=== PATIENT | female | born 1960 | race Caucasian/White ===

== ENCOUNTER → 2018-06-06 10:32 | Outpatient (REF) | payer OTHER, SELFPAY ==
[2018-06-06 11:09] LABS: Prothrombin Time 90.7 SECONDS (10.1-12.7)
[2018-06-06 11:14] LABS: INR 7.5 (0.9-1.3)
== END ==
LOC: LAB 10:32
PROVIDERS: Family Provider Family Medicine; PCP Family Medicine; Visit Provider Family Medicine
DX: I48.0 Paroxysmal atrial fibrillation (principal); Z00.00 Encounter for general adult medical examination without abnormal findings
CPT/HCPCS: 85610

== ENCOUNTER → 2020-01-17 08:33 | Outpatient (CLI) | payer OTHER, SELFPAY ==
--- NOTE | 2020-01-17 | DI.MG.S_ITS ---
BILATERAL DIGITAL SCREENING MAMMOGRAM 3D/2D WITH CAD: 01/17/2020 CLINICAL: Routine screening. Comparison is made to exams dated: 01/09/2017 mammogram, 01/05/2015 mammogram, and 10/07/2013 mammogram - [facility]. There are scattered fibroglandular elements in both breasts. Current study was also evaluated with a Computer Aided Detection (CAD) system. There are benign lymph nodes in both breasts. There also are benign calcifications in both breasts. No significant masses, calcifications, or other findings are seen in either breast. There has been no significant interval change. IMPRESSION: BENIGN There is no mammographic evidence of malignancy. A 1 year screening mammogram is recommended. This exam was interpreted at Station ID: [id number]. NOTE: For mammograms, a report in lay terms will be sent to the patient. Approximately 15% of breast malignancies will not be visualized mammographically. In the management of a palpable breast mass, a negative mammogram must not discourage biopsy of a clinically suspicious lesion. Electronically Signed By: Maicol oates/britney:01/17/2020 09:25:43 letter sent: Normal Exam ACR BI-RADS Category 2: Benign Finding(s) 3342F
== END ==
PROVIDERS: Family Provider Family Medicine; PCP Family Medicine; Referring Provider Family Medicine; Visit Provider Family Medicine
DX: Z12.31 Encounter for screening mammogram for malignant neoplasm of breast (principal)
CPT/HCPCS: 77063; 77067

== ENCOUNTER 2020-03-22 13:35 | Emergency (ER) | payer OTHER, SELFPAY ==
[2020-03-22 13:38] VITALS: BP 194/97; PULSE 93; RESP 16; TEMP 36.6; O2SAT 99; BMI 27.3
--- NOTE | 2020-03-22 13:43 | DI.RAD.S_ITS ---
PROCEDURE: XR CHEST 1V INDICATIONS: chest pain TECHNIQUE: One view of the chest was acquired. COMPARISON: [facility], CHEST 1 VIEW, 05/13/2008, 14:45. [facility], CHEST 2 VIEW, 07/20/2009, 13:18. FINDINGS: Surgical changes and devices: None. Lungs and pleura: Lungs are clear. No pleural effusions or pneumothorax. Mediastinum: Mediastinal contours appear normal. Heart size is normal. Bones and chest wall: No suspicious bony lesions. Age-appropriate bony degenerative changes are seen. Overlying soft tissues appear unremarkable. IMPRESSION: Portable chest within normal limits. Dictated by: Pa Ca M.D. on 03/22/2020 at 13:19 Approved by: Pa Ca M.D. on 03/22/2020 at 13:20
--- NOTE | 2020-03-22 13:58 | ED.CHESTPAIN ---
HPI - Chest Pain General Chief Complaint: Chest Pain Stated Complaint: severe stomach pain traveling to chest for few wks Time Seen by Provider: 03/22/20 13:50 Source: patient Mode of arrival: Ambulatory Limitations: no limitations History of Present Illness HPI narrative: The patient is a 59-year-old female who presents with left upper quadrant pain on going for the last 3 weeks. She says occasionally radiates up into her chest. It is significantly worse whenever she tries to eat she is always nauseous she has been taking omeprazole without any relief. She is unsure she has lost any weight. She denies any fever chills cough or shortness of breath. She denies any chest pain now but is having significant epigastric and left upper quadrant pain. She says the pain got significantly worse last night Related Data Previous Rx's Medication Instructions Recorded omeprazole 40 mg PO BID #60 cap 03/22/20 sucralfate [Carafate] 1 g PO QID #60 tab 03/22/20 Allergies Allergy/AdvReac Type Severity Reaction Status Date / Time Sulfa (Sulfonamide Allergy Unknown Verified 09/11/17 06:59 Antibiotics) Review of Systems Review of Systems ROS Unobtainable: All systems reviewed & are unremarkable except as noted in HPI and below Constitutional Constitutional: Denies chills, Denies fever(s), Denies lethargy and Denies weakness Eyes Eyes: Denies change in vision, Denies eye discharge, Denies irritation and Denies loss of vision Cardiovascular Cardiovascular: Reports as per HPI, Denies dyspnea and Denies dyspnea on exertion Respiratory Respiratory: Denies cough, Denies dyspnea, Denies dyspnea on exertion and Denies wheezing Gastrointestinal Gastrointestinal: Reports as per HPI Musculoskeletal Musculoskeletal: Denies back pain and Denies myalgias Integumentary/Breasts Skin/Breast: Denies pruritus, Denies erythema, Denies rash and Denies wounds Neurologic Neurologic: Denies loss of vision and Denies weakness Allergic/Immunologic Allergic/Immunologic: Denies wheezing Patient History Social History Smoking Status: Current every day smoker Smoking Status: Current every day smoker alcohol intake frequency: a few times a week Substance Use Type: marijuana Exam Initial Vital Signs Initial Vital Signs: Vital Signs Temperature 97.8 F 03/22/20 13:38 Pulse Rate 93 H 03/22/20 13:38 Respiratory Rate 16 03/22/20 13:38 Blood Pressure 194/97 H 03/22/20 13:38 Pulse Oximetry 99 03/22/20 13:38 GENERAL: Alert 59-year-old female in mild distress and in no acute distress. HEENT: Head atraumatic,EOMI, pupils reactive, face symmetric, mucous membranes CARDIOVASCULAR: Regular rate and rhythm without murmurs, rubs or gallops. RESPIRATORY: Breath sounds equal bilaterally, no wheezes rales or rhonchi. ABDOMEN: Soft, significant epigastric and left upper quadrant pain to palpation no right upper quadrant pain negative Brumfield sign EXTREMITIES: Normal range of motion, no clubbing or edema. Neurovascularly intact NEUROLOGICAL: Alert and oriented x4.Normal gait and speech. Cranial nerves II through XII grossly intact. SKIN: Warm, dry, no laceration, no petechiae, no rashes or lesions. Course Orders Ordered: ED Orders 03/22/20 13:43 XR chest 1V Stat EKG-12 Lead Stat 03/22/20 13:50 Complete Blood Count AUTO DIFF Stat Comprehensive Metabolic Panel Stat Lipase Stat Partial Thromboplastin Time Stat Prothrombin Time INR Stat Troponin & CK Cardiac Panel Stat 03/22/20 13:58 CT abdomen pelvis w con Stat 03/22/20 15:00 Urine Microscopic Stat Discontinued Medications Sodium Chloride (Normal Saline 0.9%) 1,000 mls @ 1,000 mls/hr IV BOLUS ONE Stop: 03/22/20 15:26 Last Infusion: 03/22/20 16:29 Dose: 0 mls/hr Documented by: Admin: 03/22/20 14:35 Dose: 1,000 mls/hr Documented by: CARLOS Morphine Sulfate (Morphine 4 Mg/Ml Inj) 4 mg IV NOW ONE Stop: 03/22/20 13:59 Last Admin: 03/22/20 14:04 Dose: 4 mg Documented by: CARLOS Ondansetron HCl (Ondansetron 4 Mg/2 Ml Inj) 4 mg IV NOW ONE Stop: 03/22/20 13:59 Last Admin: 03/22/20 14:03 Dose: 4 mg Documented by: CARLOS Pantoprazole Sodium (Pantoprazole 40 Mg Vial) 40 mg IV NOW ONE Stop: 03/22/20 13:59 Last Admin: 03/22/20 14:03 Dose: 40 mg Documented by: CARLOS Vital Signs Vital signs: Vital Signs - 8 hr 03/22/20 13:38 03/22/20 16:35 Temperature 97.8 F Pulse Rate 93 H 72 Respiratory Rate 16 16 Blood Pressure 194/97 H 135/72 Pulse Oximetry 99 99 MDM - Chest Pain Lab Data Attestation: I reviewed the patient's lab results. Result diagrams: 03/22/20 13:50 03/22/20 13:50 Labs: Lab Results 03/22/20 03/22/20 03/22/20 Range/Units 13:50 13:50 13:50 WBC 5.9 (4.5-11.0) X10^3/uL RBC 4.10 (4.0-5.2) X10^6/uL Hgb 13.5 (12.0-16.0) g/dL Hct 39.6 (36-46) % MCV 96.7 (80-100) fL MCH 32.9 (26-34) PG MCHC 34.0 (30-36) % RDW 13.2 (11.6-14.8) % Plt Count 201 (150-400) X10^3/uL Neut % (Auto) 63.9 (50-75) % Lymph % (Auto) 27.6 (25-40) % [place] % (Auto) 7.4 (3-14) % Eos % (Auto) 0.6 L (2-4) % Baso % (Auto) 0.5 (0-2) % Neut # (Auto) 3800 (9620-4946) /uL Lymph # (Auto) 1600 (6531-1541) /uL [place] # (Auto) 400 (0-900) /uL Eos # (Auto) 0 (0-450) /uL Baso # (Auto) 0 (0-100) /uL PT 13.3 H (10.1-12.7) SECONDS INR 1.2 (0.9-1.3) APTT 45 H (26.4-36.2) SECONDS Sodium 133 L (137-145) mmol/L Potassium 4.8 (3.4-5.1) mmol/L Chloride 104 (98-107) mmol/L Carbon Dioxide 19 L (22-32) mmol/L BUN 27 H (7-17) mg/dL Creatinine 0.82 (0.52-1.04) mg/dL Estimated GFR > 60.0 (>60) mL/min BUN/Creatinine Ratio 32.9 H (6-22) Glucose 359 H (70-100) mg/dL Calcium 9.9 (8.4-10.2) mg/dL Total Bilirubin 0.7 (0.2-1.3) mg/dL AST 68 H (14-36) IU/L ALT 71 H (<35) IU/L Alkaline Phosphatase 82 (38-126) U/L Total Creatine Kinase 584 H (30-135) U/L CK-MB (CK-2) 4.05 H (<2.37) ng/mL CK-MB (CK-2) Rel Index 0.7 L (1.5-5.0) % Troponin I < 0.012 (0.01-0.034) ng/mL Total Protein 7.6 (6.3-8.2) g/dL Albumin 4.5 (3.5-5.0) g/dL Globulin 3.1 (1.7-4.1) g/dL Albumin/Globulin Ratio 1.5 (1.0-2.8) Lipase 201 (23-300) U/L Urine RBC (0-5/HPF) Urine WBC (0-5/HPF) Ur Squamous Epith Cells (0-5/HPF) Urine Bacteria (None) Ur Culture Indicated? 03/22/20 Range/Units 15:00 WBC (4.5-11.0) X10^3/uL RBC (4.0-5.2) X10^6/uL Hgb (12.0-16.0) g/dL Hct (36-46) % MCV (80-100) fL MCH (26-34) PG MCHC (30-36) % RDW (11.6-14.8) % Plt Count (150-400) X10^3/uL Neut % (Auto) (50-75) % Lymph % (Auto) (25-40) % [place] % (Auto) (3-14) % Eos % (Auto) (2-4) % Baso % (Auto) (0-2) % Neut # (Auto) (7046-8602) /uL Lymph # (Auto) (1710-2487) /uL [place] # (Auto) (0-900) /uL Eos # (Auto) (0-450) /uL Baso # (Auto) (0-100) /uL PT (10.1-12.7) SECONDS INR (0.9-1.3) APTT (26.4-36.2) SECONDS Sodium (137-145) mmol/L Potassium (3.4-5.1) mmol/L Chloride (98-107) mmol/L Carbon Dioxide (22-32) mmol/L BUN (7-17) mg/dL Creatinine (0.52-1.04) mg/dL Estimated GFR (>60) mL/min BUN/Creatinine Ratio (6-22) Glucose (70-100) mg/dL Calcium (8.4-10.2) mg/dL Total Bilirubin (0.2-1.3) mg/dL AST (14-36) IU/L ALT (<35) IU/L Alkaline Phosphatase (38-126) U/L Total Creatine Kinase (30-135) U/L CK-MB (CK-2) (<2.37) ng/mL CK-MB (CK-2) Rel Index (1.5-5.0) % Troponin I (0.01-0.034) ng/mL Total Protein (6.3-8.2) g/dL Albumin (3.5-5.0) g/dL Globulin (1.7-4.1) g/dL Albumin/Globulin Ratio (1.0-2.8) Lipase (23-300) U/L Urine RBC None seen (0-5/HPF) Urine WBC None seen (0-5/HPF) Ur Squamous Epith Cells 0-1 /hpf (0-5/HPF) Urine Bacteria None seen (None) Ur Culture Indicated? Cult not indicated Urine Dip Bedside Urine Glucose 1000 mg/dl Bedside Urine Bilirubin - Negative Bedside Urine Ketone - Negative Urine Specific Parkman 1.010 Bedside Urine Occult Blood - Negative Bedside Urine pH 6.0 Bedside Urine Protein - Negative Bedside Urine Urobilinogen - Negative Bedside Urine Nitrite - Negative Bedside Urine Leukocytes - Negative Esterase Imaging Data CT scan - abdomen/pelvis: Radiologist's Impression: PROCEDURE: CT ABDOMEN PELVIS W CON INDICATIONS: ab pain TECHNIQUE: After the administration of intravenous contrast, 5 mm thick sections acquired from the diaphragm to the symphysis. 5 mm coronal and sagittal reformats were acquired. For radiation dose reduction, the following was used: automated exposure control, adjustment of mA and/or kV according to patient size. COMPARISON: None. FINDINGS: Image quality: Excellent. ABDOMEN: Lung bases: Lung bases are clear. Heart size is normal. Solid organs: Liver is normal in size. Subtle hypodensity in segment 8 measuring approximately 1.4 x 1 cm, (2/19). There is adjacent perfusion abnormality. Hepatic steatosis. Gallbladder is unremarkable. Biliary system is non dilated. Pancreas enhances normally. Spleen is normal in size and enhancement. No adrenal nodules. Kidneys demonstrate normal size and enhancement, without hydronephrosis. Peritoneum and bowel: No small bowel obstruction. Diverticulosis without diverticulitis. Normal appendix. No free fluid or air. Nodes and vessels: No retroperitoneal or mesenteric adenopathy by size criteria. Aorta and inferior vena cava are normal in size. Extensive calcified atherosclerotic plaque. Miscellaneous: Small fat containing periumbilical hernia. PELVIS: Genitourinary: Bladder wall thickness is normal. Uterus is absent. Miscellaneous: No inguinal hernias or adenopathy. Bones: No suspicious bony lesions. Marked DDD at L3-L4. No vertebral body compression fractures. IMPRESSION: 1. No acute inflammatory process is identified. No free fluid. 2. Diverticulosis without diverticulitis. 3. Ill-defined hypodensity in the right lobe of the liver. This could be due to underlying lesion or perfusion abnormality. Hepatic steatosis. -This can be further evaluated with abdominal ultrasound or multiphase liver CT or MRI. Dictated by: Jonny Pierre M.D. on 03/22/2020 at 14:46 Chest x-ray: Radiologist's Impression: PROCEDURE: XR CHEST 1V INDICATIONS: chest pain TECHNIQUE: One view of the chest was acquired. COMPARISON: [facility], CHEST 1 VIEW, 05/13/2008, 14:45. [facility], , CHEST 2 VIEW, 07/20/2009, 13:18. FINDINGS: Surgical changes and devices: None. Lungs and pleura: Lungs are clear. No pleural effusions or pneumothorax. Mediastinum: Mediastinal contours appear normal. Heart size is normal. Bones and chest wall: No suspicious bony lesions. Age-appropriate bony degenerative changes are seen. Overlying soft tissues appear unremarkable. IMPRESSION: Portable chest within normal limits. Dictated by: Pa Ca M.D. on 03/22/2020 at 13:19 ECG Data Attestation: I personally reviewed and interpreted this ECG as follows: Prior ECG tracings: not available for review Interpretation: EKG 1. Normal sinus rhythm rate 91 p.r. interval 148 QRS [address] changes or T-wave inversions EKG 2. Sinus rhythm rate 74 no changes from prior MDM Narrative Medical decision making narrative: Patient's pain has been ongoing for the last 3 weeks which is worse with food more consistent with a gastric ulcer. EKGs and troponin are negative. At this time will add Carafate and omeprazole and I recommended outpatient EGD. Discharge Plan Departure Patient Disposition: Home Clinical Impression: Gastric ulcer Qualifiers: Gastric ulcer chronicity: acute Gastric ulcer complication status: without hemorrhage or perforation Qualified Code(s): K25.3 - Acute gastric ulcer without hemorrhage or perforation Instructions: DI for Gastric Ulcer Activity Restrictions/Additional Instructions: *You have been diagnosed with gastric ulcer *What to do: You likely have a gastric ulcer. Please avoid all NSAIDs including Motrin, ibuprofen, naproxen, Aleve, Advil. etc I do recommend you have an EGD, this needs to be set up by her primary care provider *Continue to take medications as directed Carafate 1 g 4 times daily Omeprazole 40 mg twice a day 30 minutes before eating Tylenol 650 mg every 4-6 hours if needed for [id number] pain *Follow up with your primary care provider in 2-3 days *Return to ER if you should have increasing pain, dark black stools, dizziness, lightheadedness, vomiting coffee-ground stuff or any new, worsening or concerning symptoms Prescriptions: New sucralfate [Carafate] 1 gram tablet 1 g PO QID Qty: 60 RF: 0 omeprazole 40 mg capsule,delayed release(DR/EC) 40 mg PO BID Qty: 60 RF: 0 Referrals: Kilo Ag MD [Primary Care Provider] -
[2020-03-22 14:02] LABS: Add Manual Diff / Slide Review NO; Basophils Absolute Auto 0 /uL (0-100); Basophils Percent Auto 0.5 % (0-2); Eosinophils Absolute Auto 0 /uL (0-450); Eosinophils Percent Auto 0.6 % (2-4); Hematocrit 39.6 % (36-46); Hemoglobin 13.5 g/dL (12.0-16.0); Lymphocytes Absolute Auto 1600 /uL (1100-4500); Lymphocytes Percent Auto 27.6 % (25-40); Mean Corpuscular Hemoglobin 32.9 PG (26-34); Mean Corpuscular Volume 96.7 fL (80-100); Monocytes Absolute Auto 400 /uL (0-900); Monocytes Percent Auto 7.4 % (3-14); Neutrophils Absolute Auto 3800 /uL (1500-7000); Neutrophils Percent Auto 63.9 % (50-75); Platelet Count 201 X10^3/uL (150-400); Red Cell Distribution Width 13.2 % (11.6-14.8); White Blood Cell Count 5.9 X10^3/uL (4.5-11.0)
[2020-03-22] MEDS: ONDANSETRON 4 MG/2 ML INJ IV (14:03)
[2020-03-22] MEDS: PANTOPRAZOLE 40 MG VIAL IV (14:03)
[2020-03-22] MEDS: MORPHINE 4 MG/ML INJ IV (14:04)
[2020-03-22 14:08] LABS: INR 1.2 (0.9-1.3); Prothrombin Time 13.3 SECONDS (10.1-12.7)
[2020-03-22 14:10] LABS: PTT Partial Thromboplastin Tim 45 SECONDS (26.4-36.2)
[2020-03-22 14:12] LABS: Alanine Aminotransferase 71 IU/L (<35); Albumin 4.5 g/dL (3.5-5.0); Albumin Globulin Ratio 1.5 (1.0-2.8); Alkaline Phosphatase 82 U/L (38-126); Aspartate Aminotransferase 68 IU/L (14-36); BUN Creatinine Ratio 32.9 (6-22); Bilirubin Total 0.7 mg/dL (0.2-1.3); Blood Urea Nitrogen 27 mg/dL (7-17); Calcium 9.9 mg/dL (8.4-10.2); Carbon Dioxide 19 mmol/L (22-32); Chloride 104 mmol/L (98-107); Creatine Kinase 584 U/L (30-135); Estimated Glomerular Filt Rate > 60.0 mL/min (>60); Globulin 3.1 g/dL (1.7-4.1); Glucose 359 mg/dL (70-100); HEMOLYSIS 15 (0-50); Lipase 201 U/L (23-300); Potassium 4.8 mmol/L (3.4-5.1); Sodium 133 mmol/L (137-145); Total Protein 7.6 g/dL (6.3-8.2)
--- NOTE | 2020-03-22 14:18 | PC.NURSE ---
during medication administration patient stated her pain is now radiating into the left side and rubber her left shoulder and chest. Provider notified, repeat ekg being performed by RT
[2020-03-22 14:23] LABS: Troponin I < 0.012 ng/mL (0.01-0.034)
[2020-03-22 14:27] LABS: CKMB % Relative Index 0.7 % (1.5-5.0); Creatine Kinase MB 4.05 ng/mL (<2.37)
[2020-03-22] MEDS: SODIUM CHLORIDE 0.9% 1,000 ML 1000 ML IV (14:35)
[2020-03-22 15:29] LABS: Bacteria Urine None Seen; RBC Urine None Seen (0-5/HPF); WBC Urine None Seen (0-5/HPF)
[2020-03-22 15:42] LABS: Culture Indicated Urine Cult Not Indicated; Squamous Epithelial Cell Urine 0-1 /HPF (0-5/HPF)
[2020-03-22 16:35] VITALS: BP 135/72; PULSE 72; RESP 16; O2SAT 99
== END 2020-03-22 16:36 | disposition home or self-care (01) ==
PROVIDERS: Emergency Provider Emergency Medicine; Family Provider Family Medicine; PCP Family Medicine
DX: K25.3 Acute gastric ulcer without hemorrhage or perforation (principal); R11.0 Nausea; R10.13 Epigastric pain; R07.89 Other chest pain
CPT/HCPCS: 36415; 71045; 74177; 80053; 81003; 81015; 82550; 82553; 83690; 84484; 85025; 85610; 85730; 93005; 93010; 96361; 96374; 96375; 99283; 99284; C9113; J2270; J2405; Q9967

== ENCOUNTER → 2022-02-15 11:04 | Outpatient (CLI) | payer OTHER, SELFPAY ==
[2022-02-15 11:47] LABS: Add Manual Diff / Slide Review NO; Basophils Absolute Auto 0 /uL (0-100); Basophils Percent Auto 0.5 % (0-2); Eosinophils Absolute Auto 100 /uL (0-450); Eosinophils Percent Auto 0.7 % (2-4); Hematocrit 39.3 % (36-46); Hemoglobin 13.3 g/dL (12.0-16.0); Lymphocytes Absolute Auto 1800 /uL (1100-4500); Lymphocytes Percent Auto 22.1 % (25-40); Mean Corpuscular HGB Conc 33.9 % (30-36); Mean Corpuscular Hemoglobin 31.1 PG (26-34); Mean Corpuscular Volume 91.5 fL (80-100); Monocytes Absolute Auto 500 /uL (0-900); Monocytes Percent Auto 5.9 % (3-14); Neutrophils Absolute Auto 5900 /uL (1500-7000); Neutrophils Percent Auto 70.8 % (50-75); Platelet Count 265 X10^3/uL (150-400); Red Cell Distribution Width 12.6 % (11.6-14.8); White Blood Cell Count 8.3 X10^3/uL (4.5-11.0)
[2022-02-15 11:56] LABS: Hemoglobin A1C% w Est Avg Glu 11.7 % (4.0-6.0)
[2022-02-15 12:07] LABS: Alanine Aminotransferase 34 IU/L (<35); Albumin 4.1 g/dL (3.5-5.0); Albumin Globulin Ratio 1.1 (1.0-2.8); Alkaline Phosphatase 119 U/L (38-126); Aspartate Aminotransferase 42 IU/L (14-36); Bilirubin Total 0.7 mg/dL (0.2-1.3); Blood Urea Nitrogen 20 mg/dL (7-17); Calcium 9.9 mg/dL (8.4-10.2); Carbon Dioxide 24 mmol/L (22-32); Chloride 96 mmol/L (98-107); Estimated Glomerular Filt Rate > 60 mL/min (>60); Globulin 3.6 g/dL (1.7-4.1); Glucose 443 mg/dL (70-100); HEMOLYSIS < 15 (0-50); Lipase 182 U/L (23-300); Potassium 5.1 mmol/L (3.4-5.1); Sodium 134 mmol/L (137-145); Total Protein 7.7 g/dL (6.3-8.2)
[2022-02-15 12:33] LABS: Thyroid Stimulating Hormone 3.03 uIU/mL (0.47-4.68)
[2022-02-15 12:52] LABS: Vitamin B12 721 pg/mL (239-931)
== END ==
PROVIDERS: Family Provider Family Medicine; PCP Family Medicine; Referring Provider Family Medicine; Visit Provider Family Medicine
DX: R10.9 Unspecified abdominal pain (principal); E11.9 Type 2 diabetes mellitus without complications
CPT/HCPCS: 36415; 80053; 82607; 83036; 83690; 84443; 85025

== ENCOUNTER → 2022-03-02 06:42 | Outpatient (CLI) | payer OTHER, SELFPAY ==
--- NOTE | 2022-03-02 06:43 | DI.US.S_ITS ---
PROCEDURE: US ABDOMEN COMPLETE INDICATIONS: ABDOMINAL PAIN TECHNIQUE: Real-time scanning was performed of the abdominal and retroperitoneal organs, with image documentation. COMPARISON: [facility], CT, CT ABDOMEN PELVIS W CON, 03/22/2020, 14:23. FINDINGS: Liver: The liver measures 14.5 cm in length and demonstrates increased echogenicity. An ill-defined heterogeneous, hypoechoic 3.3 x 2.6 x 3.1 cm lesion is present within the right hepatic lobe. This likely corresponds with the ill-defined lesion visualized on the comparison CT dated March 22, 2020. There is likely an enlarged node in the lauren hepatis. Gallbladder: The gallbladder wall measures 2.7 mm in diameter. A 1 cm mobile stone is present within. No pericholecystic fluid or sonographic Brumfield sign. Biliary ducts: Intrahepatic bile ducts are non-dilated. Extrahepatic bile duct caliber measures 4.3 mm. Normal is 6-7 mm or less in diameter, or 10 mm or less post-cholecystectomy. Pancreas: Visualized portions of the pancreas are sonographically normal. The tail of the pancreas is not well visualized. Spleen: Spleen is normal in size and homogeneous in echotexture. Kidneys: Kidneys are normal in size and echotexture. Right kidney measures 12.0 cm long; left kidney measures 10.3 cm long. No hydronephrosis or nephrolithiasis. There is likely a prominent dromedary hump within the midpole of the left kidney similar to the prior CT dated March 22, 2020. Aorta: Visualized aorta is normal in caliber at less than 3 cm. Iliacs: Proximal common iliac arteries are normal in caliber at less than 2.5 cm. IVC: Intrahepatic inferior vena cava is patent. Miscellaneous: No free abdominal fluid. IMPRESSION: 1. Increased hepatic echogenicity noted likely related to fatty infiltration of the liver but other sources of hepatocellular disease cannot be excluded. 2. Hypoechoic lesion within the right hepatic lobe likely corresponding with the ill-defined lesion within the prior CT. Multiphase hepatic protocol CT or MRI is recommended to further characterize this finding. Neoplasm cannot be excluded. Differential considerations include focal fatty sparing. 3. Probable dromedary hump within the left kidney; however further characterization with CT or MRI could be used to exclude renal mass. 4. Cholelithiasis. No findings to suggest choledocholithiasis or acute cholecystitis. Dictated by: Ellie Elkins M.D. on 03/02/2022 at 8:12 Approved by: Ellie Elkins M.D. on 03/02/2022 at 8:18
== END ==
PROVIDERS: Family Provider Family Medicine; PCP Family Medicine; Referring Provider Family Medicine; Visit Provider Family Medicine
DX: K80.20 Calculus of gallbladder without cholecystitis without obstruction (principal); K76.9 Liver disease, unspecified; R10.9 Unspecified abdominal pain
CPT/HCPCS: 76700

== ENCOUNTER → 2022-03-03 15:08 | Outpatient (CLI) | payer OTHER, SELFPAY ==
--- NOTE | 2022-03-03 15:08 | DI.MRI.S_ITS ---
PROCEDURE: MR ABDOMEN WO/W CON INDICATIONS: Liver lesion TECHNIQUE: Coronal HASTE, axial 2D FLASH in- and [id number]; axial breath-hold T2 FSE. Dynamic axial VIBE during the administration of contrast; post-contrast coronal VIBE or 2D FLASH with fat saturation from the hepatic dome to the iliac crests. Optional diffusion weighted imaging and ADC may be performed. COMPARISON: [facility], CT, CT ABDOMEN PELVIS W CON, 03/22/2020, 14:23. FINDINGS: Image quality: Good Lower chest: No basal effusions. Lungs are not well evaluated. Solid organs: Hepatic steatosis. Diffusion restricting liver lesions are present throughout both lobes. The dominant lesions at the dome of the right lobe, with capsular extension measuring up to 9.2 x 7.6 cm. Cholelithiasis. No pathologic dilation of the biliary tree or pancreatic duct. No splenomegaly. There is a duodenal diverticulum previously filled with gas adjacent to the pancreatic ampulla. No adrenal nodules. No hydronephrosis or renal masses. Vessels and lymph nodes: No abdominal aortic aneurysm. Jona hepatis adenopathy measuring up to 2.5 cm. There also prominent cardiophrenic lymph nodes, for example image 8/13 measuring 9 mm. Bowel and peritoneum: No pathologic ascites. No bowel obstruction. Body wall: Unremarkable Bones: No acute or suspicious osseous abnormality. There are degenerative changes. IMPRESSION: Significantly increased size of segment 8 liver mass compatible with malignancy. There are multiple satellite lesions both lobes. Malignant jona hepatis adenopathy. There is also prominent, suspicious upper abdominal and cardiophrenic lymph nodes. The liver lesion is amenable to percutaneous biopsy. Other findings as above. Dictated by: Noble Mcclellan M.D. on 03/03/2022 at 17:05 Approved by: Noble Mcclellan M.D. on 03/03/2022 at 17:13
== END ==
PROVIDERS: Family Provider Family Medicine; PCP Family Medicine; Referring Provider Surgery; Visit Provider Surgery
DX: R59.0 Localized enlarged lymph nodes (principal); K76.9 Liver disease, unspecified; R10.9 Unspecified abdominal pain; K76.0 Fatty (change of) liver, not elsewhere classified; K57.10 Diverticulosis of small intestine without perforation or abscess without bleeding
CPT/HCPCS: 74183; A9579

== ENCOUNTER 2022-03-11 08:28 | Outpatient (CLI) | payer OTHER, SELFPAY ==
[2022-03-11] VITALS (12 sets, daily range): BP systolic 104–143; BP diastolic 76–94; PULSE 64–96; RESP 12–24; TEMP 36.1–36.7; O2SAT 96–100; BMI 24.3
--- NOTE | 2022-03-11 | PATH_ITS ---
[facility] Accession Number: [id number] . 01 Material submitted: . liver - LIVER MASS NEEDLE CORE BIOPSY . 01 Diagnosis: Liver, Image-Guided Core Biopsy: Poorly differentiated carcinoma, favor adenocarcinoma; primary site indeterminate. See comment. V 03/18/2022 1554 Local . 01 Comment: The liver core biopsies are focally involved by invasive nests and cords of poorly differentiated carcinoma. Distinct keratinization or glands are not identified. A panel of immunostains is obtained to further classify, with the controls stained appropriately. The tumor shows the following results: . Broad spectrum cytokeratins (SUNDEEP): Uniformly positive. Cytokeratin 7: Uniformly positive. Cytokeratin 20: Negative. Cytokeratin 5/6: Rare cell positive. P40: Negative. Synaptophysin: Negative. GATA3: Negative. Estrogen receptor: Negative. TTF1: Negative. Napsin: Negative. SATB2: Negative. Villin: Negative. PAX8: Negative. WT1: Negative. Arginase: Negative. . These results support the morphologic impression of a carcinoma given uniform expression with SUNDEEP; otherwise, the primary site is not determined although the cytokeratin 7 positive/cytokeratin 20 negative profile rules against colorectal origin. In addition, there is no evidence for squamous (negative p40 and minimal expression only with cytokeratin 5/6) or neuroendocrine (negative synaptophysin) differentiation. Furthermore, there is no evidence for metastatic adenocarcinoma from breast (negative GATA3/estrogen receptor), lung (negative TTF1/napsin), gastrointestinal tract (negative SATB2/villin), or gynecologic tract (negative PAX8/WT1/ER). Also, there is no evidence for a primary hepatocellular carcinoma (negative arginase) or metastatic renal cell carcinoma (negative PAX8). These negative results with the organ-specific markers, however, do not exclude origin from any of the sites indicated. . * This test was developed and its performance characteristics determined by [facility]. It has not been cleared or approved by the U.S. Food and Drug Administration. The FDA has determined that such clearance or approval is not necessary. This test is used for clinical purposes. It should not be regarded as investigational or for research. . 01 Electronically signed: . Stacie Farias MD, Pathologist NPI- [id number] . 01 Gross description: . LIVER MASS NEEDLE CORE BIOPSY: Received in formalin are 6 fragment(s) of cali, soft tissue measuring 1.3 x 0.1 x 0.1 cm to 0.4 x 0.1 x 0.1 cm submitted entirely in 2 cassette(s) /CPE 03/12/2022 0910 Local . 01 Pathologist provided ICD-10: C22.9 . 01 CPT . 323384, [id number], [id number] Specimen Comment: A courtesy copy of this report has been sent to [phone] Performed at: 01 [facility] [address] [place] [address], [place], [place] [id number] MD Riky Cox MD Phone: [phone]
--- NOTE | 2022-03-11 09:07 | SUR.PREOP ---
Blood sugar greater than 500; notified Dr Penny, interventional radiologist. Per Dr Penny, Ct guided liver biopsy will need to be canceled. Patient to ER for evaluation . Notified CT department of cancellation.
--- NOTE | 2022-03-11 09:08 | SUR.PREOP ---
Pt found to have blood sugar >500 on admit, tested twice and follow up BMP sent to the lab. Radiology was called and biopsy procedure was cancelled, pt brought to ED for evaluation by me RN, registered patient into ED and gave report to ED RN.
[2022-03-11 09:20] LABS: Platelet Count 361 X10^3/uL (150-400)
[2022-03-11 09:22] LABS: INR 1.2 (0.9-1.3); Prothrombin Time 13.8 SECONDS (10.1-12.7)
[2022-03-11 09:24] LABS: PTT Partial Thromboplastin Tim 33 SECONDS (26-36)
[2022-03-11 09:28] LABS: BUN Creatinine Ratio 25.4 (6-22); Blood Urea Nitrogen 18 mg/dL (7-17); Calcium 10.1 mg/dL (8.4-10.2); Carbon Dioxide 22 mmol/L (22-32); Chloride 95 mmol/L (98-107); Estimated Glomerular Filt Rate > 60 mL/min (>60); HEMOLYSIS < 15 (0-50); Potassium 4.6 mmol/L (3.4-5.1); Sodium 133 mmol/L (137-145)
[2022-03-11 09:37] LABS: Glucose 502 mg/dL (70-100)
--- NOTE | 2022-03-11 12:25 | DI.CT.S_ITS ---
PROCEDURE: 1. CT BIOPSY LIVER 2. Moderate sedation. INDICATIONS: LIVER MASS BIOPSY TECHNIQUE: The indications, alternatives, benefits, risks, and possible complications of the procedure were communicated to the patient. Informed written consent from the patient was obtained and placed in the chart. Continuous EKG and hemodynamic monitoring was started by trained personnel. The patient was brought to the CT suite and laundry or dry cleaners counter clerk spiral CT imaging was performed with localization grid. The appropriate site for percutaneous access to the biopsy target was marked, was prepped and draped sterilely, and was infused with local anaesthesia. Under CT guidance, a core biopsy trocar and needle set was advanced to the biopsy target, and specimen(s) were obtained. The trocar and needle were then removed, and the patient was sent for post-procedure monitoring. COMPARISON: None. FINDINGS: Biopsy site: Right lobe of the liver Needle: 20 gauge biopsy needle with introducer trocar. Number of passes: 1 pass with the trocar and 4 core biopsies were obtained Medications: 1% lidocaine for local anaesthesia. IV Fentanyl and Versed for moderate sedation. Complications: None. IMPRESSION: Successful CT-guided biopsy of a right hepatic mass. Dictated by: Uday Rossi M.D. on 03/11/2022 at 17:55 Approved by: Uday Rossi M.D. on 03/11/2022 at 17:57
[2022-03-11] MEDS: fentaNYL 100 MCG/2 ML INJ IV (14:35)
[2022-03-11] MEDS: MIDAZOLAM 2 MG/2 ML VIAL IV (14:35)
[2022-03-11] MEDS: ACETAMINOPHEN 325 MG TABLET 650 MG PO (16:33)
--- NOTE | 2022-03-11 16:45 | DI.RAD.S_ITS ---
PROCEDURE: XR CHEST 1V INDICATIONS: post liver biopsy TECHNIQUE: One view of the chest was acquired. COMPARISON: [facility], CR, XR CHEST 1V, 03/22/2020, 14:02. FINDINGS: Surgical changes and devices: None. Lungs and pleura: Lungs are clear. No pleural effusions or pneumothorax. Mediastinum: Mediastinal contours appear normal. Heart size is normal. Bones and chest wall: No suspicious bony lesions. Overlying soft tissues appear unremarkable. IMPRESSION: No acute process. Dictated by: Amelie Coleman M.D. on 03/11/2022 at 16:55 Approved by: Amelie Coleman M.D. on 03/11/2022 at 16:56
--- NOTE | 2022-03-11 17:11 | SUR.PHASEII ---
Chest x-ray done and evaluated by Dr. Rossi. VVO patient may discharge without activity restrictions. Discharge instructions reviewed with patient. Patient able to dress independently.
== END 2022-03-11 17:11 | disposition home or self-care (01) ==
PROVIDERS: Emergency Medicine; Family Provider Family Medicine; PCP Family Medicine; Referring Provider Surgery; Visit Provider Surgery
PROC: BF25ZZZ Computerized Tomography (CT Scan) of Liver (ICD-10-PCS; CPT 47000; principal; 2022-03-11 13:15)
DX: C22.9 Malignant neoplasm of liver, not specified as primary or secondary (principal)
CPT/HCPCS: 36415; 47000; 71045; 71260; 74177; 77012; 80048; 82962; 83036; 83690; 84443; 85025; 85049; 85610; 85730; 99284; J2250; J3010; Q9967

== ENCOUNTER 2022-03-11 09:12 | Emergency (ER) | payer OTHER, SELFPAY ==
[2022-03-11] VITALS (8 sets, daily range): BP systolic 138–152; BP diastolic 85–98; PULSE 72–93; RESP 17–22; TEMP 36.6; O2SAT 95–99; BMI 23.6
[2022-03-11 09:36] LABS: Add Manual Diff / Slide Review NO; Basophils Absolute Auto 0 /uL (0-100); Basophils Percent Auto 0.5 % (0-2); Eosinophils Absolute Auto 0 /uL (0-450); Eosinophils Percent Auto 0.4 % (2-4); Hematocrit 41.4 % (36-46); Hemoglobin 13.6 g/dL (12.0-16.0); Lymphocytes Absolute Auto 1500 /uL (1100-4500); Lymphocytes Percent Auto 16.6 % (25-40); Mean Corpuscular HGB Conc 32.9 % (30-36); Mean Corpuscular Hemoglobin 30.1 PG (26-34); Mean Corpuscular Volume 91.5 fL (80-100); Monocytes Absolute Auto 800 /uL (0-900); Monocytes Percent Auto 8.4 % (3-14); Neutrophils Absolute Auto 6900 /uL (1500-7000); Neutrophils Percent Auto 74.1 % (50-75); Platelet Count 370 X10^3/uL (150-400); Red Blood Cell Count 4.53 X10^6/uL (4.0-5.2); Red Cell Distribution Width 13.2 % (11.6-14.8); White Blood Cell Count 9.3 X10^3/uL (4.5-11.0)
--- NOTE | 2022-03-11 09:40 | ED.GENADULT ---
HPI - General Adult General Chief complaint: Diabetic Problem Stated complaint: blood sugar greater then 500 muscle weakness Time Seen by Provider: 03/11/22 09:20 Source: patient Mode of arrival: Ambulatory History of Present Illness HPI narrative: Patient is a 61-year-old female history of hyperlipidemia hypertension Barretts esophagus in the recently found liver mass presents today from preop with hyperglycemia. She is scheduled to have a liver biopsy however glucose was found to be greater than 500. Patient actually had blood work done 02/15/2022 not sure who from she would a hemoglobin A1c at that time of 11.7 and glucose 443. She reports that she is had increased significant weakness over the past 2-3 months. She is lost about 20 lb unintentionally. She overall feels extremely weak and tired and wants to sleep all the time. A year ago there was an ill-defined area of her liver possibly related to underlying lesion or perfusion abnormality. The next imaging done was an ultrasound 03/02/2022 for ongoing abdominal pain. She was seen evaluated by surgery scheduled for liver biopsy today. She overall does not feel well. Related Data Home Medications Medication Instructions Recorded Confirmed atorvastatin 10 mg tablet 10 mg PO DAILY 03/02/22 03/11/22 cholecalciferol (vitamin D3) 50 50 mcg PO DAILY 03/02/22 03/02/22 mcg (2,000 unit) capsule dabigatran etexilate 150 mg 150 mg PO BID 03/02/22 03/11/22 capsule (Pradaxa) losartan 100 mg tablet 100 mg PO DAILY 03/02/22 03/11/22 metformin 500 mg tablet 500 mg PO BID 03/02/22 03/11/22 metoprolol succinate 100 mg 100 mg PO BID 03/02/22 03/11/22 tablet,extended release 24 hr spironolactone 25 mg tablet 25 mg PO BID 03/02/22 03/11/22 Previous Rx's Medication Instructions Recorded omeprazole 40 mg capsule,delayed 40 mg PO BID #60 caps 03/22/20 release sucralfate 1 gram tablet (Carafate) 1 g PO QID #60 tabs 03/22/20 Allergies Allergy/AdvReac Type Severity Reaction Status Date / Time Sulfa (Sulfonamide Allergy Unknown Verified 03/11/22 08:37 Antibiotics) Patient History Medical History (Updated 03/11/22 @ 12:03 by Shalonda Dey DO) Diabetes type 2, controlled Tinea cruris Social History Smoking Status: Current every day smoker Smoking Status: Current every day smoker alcohol intake frequency: a few times a week Substance Use Type: marijuana Exam Initial Vital Signs Initial Vital Signs: Vital Signs Pulse Oximetry 95 03/11/22 09:16 GENERAL: Alert pleasant 61-year-old female appears weak and tired and in no acute distress. HEENT: Head atraumatic,EOMI, pupils reactive, face symmetric, moist mucous membranes CARDIOVASCULAR: Regular rate and rhythm without murmurs, rubs or gallops. RESPIRATORY: Breath sounds equal bilaterally, no wheezes rales or rhonchi. ABDOMEN: Soft, mild epigastric pain no guarding no rebound EXTREMITIES: Normal range of motion, no clubbing or edema. Neurovascularly intact NEUROLOGICAL: Alert and oriented x4.Normal gait and speech. SKIN: Warm, dry, no laceration, no petechiae, no rashes or lesions. Course Orders Ordered: Discontinued Medications Sodium Chloride (Normal Saline 0.9%) 1,000 mls @ 1,000 mls/hr IV BOLUS ONE Stop: 03/11/22 11:10 Last Infusion: 03/11/22 11:20 Dose: 0 mls/hr Documented By: Admin: 03/11/22 10:14 Dose: 1,000 mls/hr Documented By: JUANCHO Vital Signs Vital signs: Vital Signs - 8 hr 03/11/22 09:21 03/11/22 09:16 03/11/22 09:17 Temperature 97.8 F Pulse Rate 90 93 H Respiratory Rate 18 Blood Pressure 152/91 H Pulse Oximetry 99 95 97 Oxygen Delivery Method Room Air 03/11/22 09:17 03/11/22 09:30 03/11/22 09:30 Temperature Pulse Rate 86 Respiratory Rate 21 Blood Pressure 152/91 H 141/98 H Pulse Oximetry 98 Oxygen Delivery Method 03/11/22 10:00 03/11/22 10:00 03/11/22 10:43 Temperature Pulse Rate 78 Respiratory Rate 20 Blood Pressure 140/89 138/97 H Pulse Oximetry 97 Oxygen Delivery Method 03/11/22 10:43 03/11/22 11:00 03/11/22 11:00 Temperature Pulse Rate 75 72 Respiratory Rate 17 19 Blood Pressure 151/85 H Pulse Oximetry 98 97 Oxygen Delivery Method Room Air Medical Decision Making Lab Data Result diagrams: 03/11/22 09:00 Labs: Lab Results 03/11/22 03/11/22 03/11/22 Range/Units 09:00 09:00 09:00 WBC 9.3 (4.5-11.0) X10^3/uL RBC 4.53 (4.0-5.2) X10^6/uL Hgb 13.6 (12.0-16.0) g/dL Hct 41.4 (36-46) % MCV 91.5 (80-100) fL MCH 30.1 (26-34) PG MCHC 32.9 (30-36) % RDW 13.2 (11.6-14.8) % Plt Count 370 (150-400) X10^3/uL Neut % (Auto) 74.1 (50-75) % Lymph % (Auto) 16.6 L (25-40) % Elliott % (Auto) 8.4 (3-14) % Eos % (Auto) 0.4 L (2-4) % Baso % (Auto) 0.5 (0-2) % Neut # (Auto) 6900 (4456-1923) /uL Lymph # (Auto) 1500 (5432-0698) /uL Elliott # (Auto) 800 (0-900) /uL Eos # (Auto) 0 (0-450) /uL Baso # (Auto) 0 (0-100) /uL Hemoglobin A1c 12.4 H (4.0-6.0) % Lipase 171 (23-300) U/L TSH (0.47-4.68) uIU/mL 03/11/22 Range/Units 11:30 WBC (4.5-11.0) X10^3/uL RBC (4.0-5.2) X10^6/uL Hgb (12.0-16.0) g/dL Hct (36-46) % MCV (80-100) fL MCH (26-34) PG MCHC (30-36) % RDW (11.6-14.8) % Plt Count (150-400) X10^3/uL Neut % (Auto) (50-75) % Lymph % (Auto) (25-40) % Elliott % (Auto) (3-14) % Eos % (Auto) (2-4) % Baso % (Auto) (0-2) % Neut # (Auto) (2395-4252) /uL Lymph # (Auto) (7607-8022) /uL Elliott # (Auto) (0-900) /uL Eos # (Auto) (0-450) /uL Baso # (Auto) (0-100) /uL Hemoglobin A1c (4.0-6.0) % Lipase (23-300) U/L TSH 1.98 (0.47-4.68) uIU/mL Point of Care Testing Glucose POC 404 Point of care testing: Point of Care Testing Glucose POC [address] scan - chest: Radiologist's Impression: TREASURE [place] [id number] CT Scan Report Signed Patient: Viviane Mendoza MR#: [id number] : 1960 Acct:[id number] Age/Sex: 61 / F Date of Service: 03/11/22 Loc: ED Accession Number: [id number] ?? Procedure: CT chest abd pel w con Ordering Provider: Shalonda Dey D.O. PROCEDURE:? CT CHEST ABD PEL W CON ? INDICATIONS:? liver mass ? TECHNIQUE:? After the administration of oral and intravenous contrast, axial sections acquired from the supraclavicular neck to the pubic symphysis.? Coronal and sagittal reformats were performed.? For radiation dose reduction, the following was used:? automated exposure control, adjustment of mA and/or kV according to patient size.? ? COMPARISON: ? Merged With [facility], MR, MR ABDOMEN WO/W CON, 03/03/2022, 15:28.? Merged With [facility], US, US ABDOMEN COMPLETE, 03/02/2022, 6:53.? Merged With [facility], CT, CT ABDOMEN PELVIS W CON, 03/22/2020, 14:23. ? FINDINGS:? Image quality:? Excellent.? ? CHEST: Lower Neck: No enlarged lymph nodes.? Thyroid: Within normal limits. Axillae: No enlarged lymph nodes. Chest Wall:? Unremarkable.? ? Lungs and Airways:? There are 2 3 mm nodules in the right upper lobe on series 5, images 96 and 99. ? Heart: Heart size is normal.? No pericardial effusion. Thoracic Vessels: The aorta and pulmonary arteries demonstrate normal size.? Mediastinum and Rukhsana: No enlarged lymph nodes.? Esophagus: No wall thickening. No hiatal hernia. ? ? ABDOMEN: Liver:? As identified on prior exam of 03/03/2022, there is an extensive right hepatic liver mass with areas of additional abnormality identified in the left lobe.? Appearance is relatively stable. Gallbladder:? Stones are present within the gallbladder lumen without wall thickening. Biliary ducts:? Unremarkable.? ? Pancreas:? Unremarkable.? ? Spleen:? Unremarkable.? ? Adrenal Glands:? Unremarkable.? ? Kidneys and Ureters:? Unremarkable.? ? ? Stomach and Bowel:? Stomach, small bowel loops, and colon are nonobstructive.? Colonic diverticula are present without associated inflammatory change.? There is an appearance of thickening with luminal narrowing in the sigmoid colon seen on series 2, image 114. There is no adjacent inflammatory change.? Appearance is relatively similar to prior exam on 03/22/2020.? Peritoneum:? No abnormal intraperitoneal fluid.? No free air.? ? Ventral Wall: ? No hernia.? Abdominal Nodes:? No retroperitoneal or mesenteric adenopathy by size criteria.? Vessels:? Aorta and inferior vena cava are normal in size.? ? PELVIS: Pelvic Organs:? Unremarkable.? ? Bladder:? Unremarkable.? ? Pelvic Nodes: No enlarged lymph nodes.? Miscellaneous: No inguinal hernias are seen. ? ? ? Bones:? Unremarkable.? ? ? IMPRESSION:? ? 1.? Heterogeneously enhancing liver foci stable since prior exam on 03/03/2022 raising concern for malignancy. ? 2.? 3 mm nodules in the right upper lobe overall nonspecific without priors available for comparison.? Given liver findings, small foci of metastatic disease cannot be definitively excluded.? Recommend interval follow-up and attention to this region on subsequent exams. ? Dictated by: Shelbie Dial M.D. on 03/11/2022 at 10:41? [facility] Narrative Medical decision making narrative: Patient 61-year-old female with uncontrolled diabetes last hemoglobin A1c in February was 11.7 presents today from preop for liver biopsy with elevated glucose. There is no evidence of DKA hemoglobin A1c today is 12.7. Evidence of chronically elevated glucose. She is given 1 L of normal saline glucose decreases into the 400 range. There is no indication to start insulin at this time actually will not in case if she becomes hypoglycemic during the procedure. CT scan chest abdomen pelvis confirms liver mass without extensive disease. I have spoken with Radiology who agrees to continue with biopsy today. I have talked with Dr. Ag patient's PCP who will manage hyperglycemia and diabetes as an outpatient, and will also refer to oncology. At this time patient will be discharged from the emergency department to go back to preop to continue her liver biopsy for today. Discharge Plan Departure Patient Disposition: Home Clinical Impression: Acute hyperglycemia, Cancer of liver Instructions: Liver Cancer, DI for Hyperglycemia -- Adult Activity Restrictions/Additional Instructions: You will go proceed with your liver biopsy today. I have spoken with Dr. Ag and the 2 of you will come up with a plan for better control of your diabetes. Please call Dr. Ag to schedule an appointment next week. He will also need referral to Oncology for further treatment Return to the emergency department if you should have any nausea vomiting abdominal pain dizziness lightheadedness or passing Prescriptions: No Action metformin 500 mg tablet 500 mg PO BID spironolactone 25 mg tablet 25 mg PO BID dabigatran etexilate [Pradaxa] 150 mg capsule 150 mg PO BID metoprolol succinate 100 mg tablet extended release 24 hr 100 mg PO BID atorvastatin 10 mg tablet 10 mg PO DAILY losartan 100 mg tablet 100 mg PO DAILY cholecalciferol (vitamin D3) 50 mcg (2,000 unit) capsule 50 mcg PO DAILY sucralfate [Carafate] 1 gram tablet 1 g PO QID Qty: 60 0RF omeprazole 40 mg capsule,delayed release(DR/EC) 40 mg PO BID Qty: 60 0RF Referrals: Kilo Ag MD [Primary Care Provider] - Stand Alone Forms: Patient Portal/API
[2022-03-11 09:46] LABS: Lipase 171 U/L (23-300)
[2022-03-11 10:02] LABS: Hemoglobin A1C% w Est Avg Glu 12.4 % (4.0-6.0)
--- NOTE | 2022-03-11 10:11 | DI.CT.S_ITS ---
PROCEDURE: CT CHEST ABD PEL W CON INDICATIONS: liver mass TECHNIQUE: After the administration of oral and intravenous contrast, axial sections acquired from the supraclavicular neck to the pubic symphysis. Coronal and sagittal reformats were performed. For radiation dose reduction, the following was used: automated exposure control, adjustment of mA and/or kV according to patient size. COMPARISON: [facility], MR, MR ABDOMEN WO/W CON, 03/03/2022, 15:28. [facility], US, US ABDOMEN COMPLETE, 03/02/2022, 6:53. [facility], CT, CT ABDOMEN PELVIS W CON, 03/22/2020, 14:23. FINDINGS: Image quality: Excellent. CHEST: Lower Neck: No enlarged lymph nodes. Thyroid: Within normal limits. Axillae: No enlarged lymph nodes. Chest Wall: Unremarkable. Lungs and Airways: There are 2 3 mm nodules in the right upper lobe on series 5, images 96 and 99. Heart: Heart size is normal. No pericardial effusion. Thoracic Vessels: The aorta and pulmonary arteries demonstrate normal size. Mediastinum and Rukhsana: No enlarged lymph nodes. Esophagus: No wall thickening. No hiatal hernia. ABDOMEN: Liver: As identified on prior exam of 03/03/2022, there is an extensive right hepatic liver mass with areas of additional abnormality identified in the left lobe. Appearance is relatively stable. Gallbladder: Stones are present within the gallbladder lumen without wall thickening. Biliary ducts: Unremarkable. Pancreas: Unremarkable. Spleen: Unremarkable. Adrenal Glands: Unremarkable. Kidneys and Ureters: Unremarkable. Stomach and Bowel: Stomach, small bowel loops, and colon are nonobstructive. Colonic diverticula are present without associated inflammatory change. There is an appearance of thickening with luminal narrowing in the sigmoid colon seen on series 2, image 114. There is no adjacent inflammatory change. Appearance is relatively similar to prior exam on 03/22/2020. Peritoneum: No abnormal intraperitoneal fluid. No free air. Ventral Wall: No hernia. Abdominal Nodes: No retroperitoneal or mesenteric adenopathy by size criteria. Vessels: Aorta and inferior vena cava are normal in size. PELVIS: Pelvic Organs: Unremarkable. Bladder: Unremarkable. Pelvic Nodes: No enlarged lymph nodes. Miscellaneous: No inguinal hernias are seen. Bones: Unremarkable. IMPRESSION: 1. Heterogeneously enhancing liver foci stable since prior exam on 03/03/2022 raising concern for malignancy. 2. 3 mm nodules in the right upper lobe overall nonspecific without priors available for comparison. Given liver findings, small foci of metastatic disease cannot be definitively excluded. Recommend interval follow-up and attention to this region on subsequent exams. Dictated by: Shelbie Dial M.D. on 03/11/2022 at 10:41 Approved by: Shelbie Dial M.D. on 03/11/2022 at 10:49
[2022-03-11] MEDS: SODIUM CHLORIDE 0.9% 1,000 ML 1000 ML IV (10:14)
--- NOTE | 2022-03-11 12:00 | PC.NURSE ---
report given to Elicia DEMPSEY OR
[2022-03-11 12:36] LABS: Thyroid Stimulating Hormone 1.98 uIU/mL (0.47-4.68)
== END 2022-03-11 12:01 | disposition home or self-care (01) ==
PROVIDERS: Emergency Provider Emergency Medicine; Family Provider Family Medicine; PCP Family Medicine
DX: E11.65 Type 2 diabetes mellitus with hyperglycemia (principal); C22.9 Malignant neoplasm of liver, not specified as primary or secondary
CPT/HCPCS: 36415; 71260; 74177; 82962; 83036; 83690; 84443; 85025; 99284; Q9967

== ENCOUNTER 2022-04-04 11:03 | Inpatient (IN) | payer OTHER, SELFPAY ==
[2022-04-04] VITALS (11 sets, daily range): BP systolic 114–151; BP diastolic 63–91; PULSE 66–83; RESP 17–22; TEMP 36.3–37; O2SAT 94–100; BMI 22.8; BMI 23.3
[2022-04-04 12:14] LABS: Add Manual Diff / Slide Review NO; Basophils Absolute Auto 100 /uL (0-100); Basophils Percent Auto 0.9 % (0-2); Eosinophils Absolute Auto 0 /uL (0-450); Eosinophils Percent Auto 0.2 % (2-4); Hematocrit 32.8 % (36-46); Lymphocytes Absolute Auto 1000 /uL (1100-4500); Lymphocytes Percent Auto 11.2 % (25-40); Mean Corpuscular HGB Conc 33.4 % (30-36); Mean Corpuscular Hemoglobin 30.2 PG (26-34); Mean Corpuscular Volume 90.4 fL (80-100); Monocytes Absolute Auto 400 /uL (0-900); Monocytes Percent Auto 4.9 % (3-14); Neutrophils Absolute Auto 7500 /uL (1500-7000); Neutrophils Percent Auto 82.8 % (50-75); Platelet Count 289 X10^3/uL (150-400); Red Blood Cell Count 3.62 X10^6/uL (4.0-5.2); Red Cell Distribution Width 15.1 % (11.6-14.8); White Blood Cell Count 9.1 X10^3/uL (4.5-11.0)
[2022-04-04 12:16] LABS: Fractionated Inspired Oxygen 21; HCO3 VBG 24 mmol/L (24-28); Oxygen Saturation VBG 88 % (70-75); PCO2 VBG 31.4 mmHg (45-50); PO2 VBG 49 mmHg (35-45); Total CO2 VBG 25 mmol/L (24-29); pH VBG 7.49 (7.33-7.43)
[2022-04-04 12:18] LABS: INR 1.4 (0.9-1.3); Prothrombin Time 15.7 SECONDS (10.1-12.7)
[2022-04-04 12:20] LABS: PTT Partial Thromboplastin Tim 40 SECONDS (26-36)
[2022-04-04 12:23] LABS: Alanine Aminotransferase 53 IU/L (<35); Albumin 3.4 g/dL (3.5-5.0); Albumin Globulin Ratio 0.8 (1.0-2.8); Alkaline Phosphatase 509 U/L (38-126); Aspartate Aminotransferase 84 IU/L (14-36); BUN Creatinine Ratio 28.1 (6-22); Bilirubin Total 2.5 mg/dL (0.2-1.3); Blood Urea Nitrogen 18 mg/dL (7-17); Calcium 8.9 mg/dL (8.4-10.2); Carbon Dioxide 20 mmol/L (22-32); Chloride 94 mmol/L (98-107); Estimated Glomerular Filt Rate > 60 mL/min (>60); Globulin 4.1 g/dL (1.7-4.1); HEMOLYSIS 19 (0-50); Lipase 160 U/L (23-300); Potassium 4.8 mmol/L (3.4-5.1); Sodium 128 mmol/L (137-145); Total Protein 7.5 g/dL (6.3-8.2)
[2022-04-04 12:25] LABS: Ketones (Beta-Hydroxybutyrate) 0.31 mmol/L (<0.27)
[2022-04-04] MEDS: SODIUM CHLORIDE 0.9% 1,000 ML 1000 ML IV (12:36)
[2022-04-04 12:41] LABS: Procalcitonin 2.19 ng/mL (<0.5)
[2022-04-04 12:51] LABS: Glucose 590 mg/dL (70-100)
--- NOTE | 2022-04-04 13:05 | ED.GENADULT ---
HPI - General Adult General Chief complaint: Diabetic Problem Stated complaint: cyst on groin, cancer, diabetes Time Seen by Provider: 04/04/22 13:05 Source: patient Mode of arrival: Ambulatory History of Present Illness HPI narrative: This is a 61-year-old female with history of AFib on Pradaxa, hypertension, dyslipidemia, diabetes and recently diagnosed liver cancer. Patient presents today with complaint of ongoing yeast infections and development of infection in the right vaginal area tracking up towards the right buttock and rectal area. Patient states the area is painful hard sort of linear lump that has been slowly spreading. She states it started out as 1 small zit then a 2nd small zit. She states there was a small amount of drainage week that was sort of bloody. Patient denies fevers or chills. No chest pain or shortness of breath currently. She is had nausea but no active vomiting. She states she is been constipated but had a small bowel movement yesterday. No black or bloody stools but painful to defecate but the rectal area. No dysuria urgency or frequency. She notes abdominal pain that has been present for several months, it has been slowly increasing. She states since her liver biopsy on the she is felt more full and sort of hard on the upper abdominal area. She is had yeast like vaginal discharge according to the patient. She is been on oral as well as intravaginal anti-yeast medication. She denies any vaginal bleeding. Patient states her glucoses have been high in the 300s and sometimes 500 range for several months. She is on glipizide as her only diabetic medication and states her A1c was 11 at last check. Patient states she is had liver biopsy on March 11 confirming liver cancer, partial hysterectomy but still has her ovaries present. She states she is allergic to sulfa turns red and gets joint pain everywhere. Patient does smoke daily, 2 alcoholic drinks 3-4 nights weekly, THC but no recreational or illicit drugs. Her primary care is Dr. Ag. Related Data Home Medications Medication Instructions Recorded Confirmed atorvastatin 10 mg tablet 10 mg PO DAILY 03/02/22 04/04/22 cholecalciferol (vitamin D3) 50 50 mcg PO DAILY 03/02/22 04/04/22 mcg (2,000 unit) capsule losartan 100 mg tablet 100 mg PO DAILY 03/02/22 04/04/22 metoprolol succinate 100 mg 100 mg PO BID 03/02/22 04/04/22 tablet,extended release 24 hr spironolactone 25 mg tablet 25 mg PO BID 03/02/22 04/04/22 glyburide 5 mg tablet 10 mg PO BID 04/04/22 04/04/22 hydromorphone 4 mg tablet 4 mg PO QID 04/04/22 04/04/22 ondansetron HCl 4 mg tablet 4 mg PO Q6HR 04/04/22 04/04/22 Previous Rx's Medication Instructions Recorded omeprazole 40 mg capsule,delayed 40 mg PO BID #60 caps 03/22/20 release sucralfate 1 gram tablet (Carafate) 1 g PO QID #60 tabs 03/22/20 Allergies Allergy/AdvReac Type Severity Reaction Status Date / Time Sulfa (Sulfonamide Allergy Unknown Verified 04/04/22 11:30 Antibiotics) Review of Systems Review of Systems ROS Unobtainable: All systems reviewed & are unremarkable except as noted in HPI and below Patient History Medical History Diabetes type 2, controlled Tinea cruris Social History household members: spouse Smoking Status: Current every day smoker alcohol intake: current Smoking Status: Current every day smoker alcohol intake frequency: a few times a week Substance Use Type: marijuana Exam Narrative Exam Narrative: GENERAL: Alert and oriented x three, female in mild distress. HEENT: Head normocephalic, atraumatic, EOMI, pupils reactive, face symmetric, moist mucous membranes NECK: Supple, full range of motion CARDIOVASCULAR: Regular rate and rhythm without murmurs, rubs or gallops. RESPIRATORY: Breath sounds equal bilaterally, no wheezes rales or rhonchi. ABDOMEN: Soft, nontender. Normoactive bowel sounds all 4 quadrants. No guarding or rebound, rigidity, positive for hepatomegaly. Patient has generalized abdominal pain particularly of the liver but also mildly throughout. : No CVA tenderness. External female exam shows swelling just to the right of the labia majora that extends posteriorly tracking along the buttock to the level of the rectum. The rectum itself does not appear to be involved. Patient is nontender on digital rectal exam with no induration or fluid collection on internal exam. Patient has erythema, swelling and induration. No fluctuance appreciated. Areas about 8 cm in length by about 3 cm in width. EXTREMITIES: Normal range of motion, no clubbing or edema. Neurovascularly intact. Patient has normal range of motion of upper and lower extremities is able to easily participate in exam. NEUROLOGICAL: Cranial nerves II through XII grossly intact. Moving all extremities SKIN: Warm, dry, no petechiae, no rashes or lesions other than noted above. Initial Vital Signs Initial Vital Signs: Vital Signs Temperature 97.4 F L 04/04/22 11:30 Pulse Rate 66 04/04/22 11:30 Respiratory Rate 20 04/04/22 11:30 Blood Pressure 120/76 04/04/22 11:30 Pulse Oximetry 100 04/04/22 11:30 Oxygen Delivery Method 04/04/22 11:30 Course Orders Ordered: ED Orders 04/04/22 11:47 RT Consult Eval and Treat NOW 04/04/22 12:00 Complete Blood Count AUTO DIFF Stat Comprehensive Metabolic Panel Stat Ketones (Beta-Hydroxybutyrate) Stat Lactate (Lactic Acid) Stat Lipase Stat Partial Thromboplastin Time Stat Procalcitonin Stat Prothrombin Time INR Stat Venous Blood Gas Stat 04/04/22 12:15 Blood Culture Stat 04/04/22 12:28 Urinalysis and Microscopic Stat 04/04/22 13:06 CT abdomen pelvis w con Stat Acetaminophen (Acetaminophen 325 Mg Tablet) 650 mg PO Q6H PRN PRN Reason: Fever/Mild Pain (1-3) Hydrocodone Bitart/Acetaminophen (Hydrocodone/Acet 5/325 Tablet) 1 tab PO Q4H PRN PRN Reason: Pain, Moderate (4-6) Al Hydrox/Mg Hydrox/Simethicone (Mag Hydrox/Alum/Simeth 30 Ml Udc) 30 ml PO Q6HR PRN PRN Reason: Dyspepsia Last Admin: 04/04/22 18:20 Dose: 30 ml Documented By: FATEMEH Atorvastatin Calcium (Atorvastatin 20 Mg Tablet) 10 mg PO DAILY GEOVANNA Calcium Carbonate (Calcium Carbonate 500 Mg Tab) 1,000 mg PO Q4HR PRN PRN Reason: Dyspepsia Last Admin: 04/04/22 18:21 Dose: 1,000 mg Documented By: FATEMEH Dextrose (Dextrose 50 % In Water 25 Gm/50 Ml Syringe) 25 gm IV PRN PRN; Protocol PRN Reason: Hypoglycemia Diazepam (Diazepam 5 Mg Tablet) 5 mg PO Q6HR PRN PRN Reason: Anxiety Docusate Sodium (Docusate 100 Mg Capsule) 100 mg PO BID [facility] Enoxaparin Sodium (Enoxaparin 40 Mg/0.4 Ml Syringe) 40 mg SUBCUT DAILY [facility] Glyburide (Glyburide 2.5 Mg Tablet) 10 mg PO BIDWM [facility] Hydromorphone HCl (Hydromorphone 1 Mg Inj) 1 mg IV Q4H PRN PRN Reason: Pain, Severe (7-10) Last Admin: 04/04/22 18:22 Dose: 1 mg Documented By: MM Hydromorphone HCl (Hydromorphone 4 Mg Tablet) 4 mg PO QID [facility] Sodium Chloride (Normal Saline 0.9%) 1,000 mls @ 150 mls/hr IV CONT GEOVANNA Last Admin: 04/04/22 18:38 Dose: 150 mls/hr Documented By: FATEMEH Ibuprofen (Ibuprofen 600 Mg Tablet) 600 mg PO Q6H PRN PRN Reason: Fever/Mild Pain (1-3) Insulin Glargine (Insulin Glargine 100 Unit/Ml 3ml Pen) 30 unit SUBCUT 2100 [facility] Insulin Human Lispro (Insulin Lispro 100 Unit/Ml 3ml Vial) 10 unit SUBCUT AC [facility] Insulin Human Lispro (Insulin Lispro 100 Unit/Ml 3ml Vial) 0 unit SUBCUT ACHS [facility]; Protocol Losartan Potassium (Losartan 50 Mg Tablet) 100 mg PO DAILY [facility] Metformin HCl (Metformin Xr 500 Mg Tablet) 1,000 mg PO 0800,1700 [facility] Metoprolol Succinate (Metoprolol Er 50 Mg Tablet) 100 mg PO BID [facility] Naloxone HCl (Naloxone 0.4 Mg/Ml Vial) 0.2 mg IV Q2MIN PRN PRN Reason: Opiate Reversal Ondansetron HCl (Ondansetron 4 Mg/2 Ml Inj) 4 mg IV Q8HR PRN PRN Reason: Nausea And Vomiting Last Admin: 04/04/22 18:20 Dose: 4 mg Documented By: FATEMEH Ondansetron HCl (Ondansetron 4 Mg Odt) 4 mg PO Q6HR [facility] Oxycodone HCl (Oxycodone Ir 10 Mg Tablet) 10 mg PO Q3H PRN PRN Reason: Pain, Severe (7-10) Pantoprazole Sodium (Pantoprazole Dr 40 Mg Tablet) 40 mg PO 0700,2100 GEOVANNA Spironolactone (Spironolactone 25 Mg Tablet) 25 mg PO BID GEOVANNA Sucralfate (Sucralfate 1 Gm Tablet) 1 gm PO QID GEOVANNA Vitamin D (Cholecalciferol (Vitamin D3) 1,000 Unit Tablet) 2,000 unit PO DAILY GEOVANNA Discontinued Medications Dextrose (Dextrose 50 % In Water 25 Gm/50 Ml Syringe) 25 gm IV PRN PRN PRN Reason: Hypoglycemia Sodium Chloride (Normal Saline 0.9%) 1,000 mls @ 1,000 mls/hr IV BOLUS ONE Stop: 04/04/22 12:46 Last Infusion: 04/04/22 13:21 Dose: 0 mls/hr Documented By: Admin: 04/04/22 12:36 Dose: 1,000 mls/hr Documented By: LUTHER Sodium Chloride (Normal Saline 0.9%) 2,041.17 mls @ 680.39 mls/hr 30 ml/kg infuse over 3 hr (2041.17 ml) IV NOW ONE Stop: 04/04/22 16:06 Last Infusion: 04/04/22 16:25 Dose: 0 mls/hr Documented By: Admin: 04/04/22 13:30 Dose: 680.39 mls/hr Documented By: AT Piperacillin Sod/Tazobactam (Sod 4.5 gm/ Sodium Chloride) 100 mls @ 200 mls/hr IV NOW ONE Stop: 04/04/22 13:08 Last Infusion: 04/04/22 14:30 Dose: 0 mls/hr Documented By: Admin: 04/04/22 13:30 Dose: 200 mls/hr Documented By: AT Metronidazole (Flagyl) 500 mg in 100 mls @ 100 mls/hr IV NOW ONE Stop: 04/04/22 14:06 Last Infusion: 04/04/22 16:23 Dose: 0 mls/hr Documented By: Admin: 04/04/22 15:22 Dose: 100 mls/hr Documented By: MLM Insulin Human Lispro (Insulin Lispro 100 Unit/Ml 3ml Vial) 20 unit SUBCUT NOW ONE Stop: 04/04/22 17:41 Last Admin: 04/04/22 18:37 Dose: 20 unit Documented By: MM Co-signed By: LDV Metformin HCl (Metformin Xr 500 Mg Tablet) 1,000 mg PO 0800,1700 [facility] Vital Signs Vital signs: Vital Signs - 8 hr 04/04/22 11:30 04/04/22 13:27 04/04/22 13:28 Temperature 97.4 F L Pulse Rate 66 75 74 Respiratory Rate 20 21 20 Blood Pressure 120/76 Pulse Oximetry 100 99 99 Oxygen Delivery Method Room Air 04/04/22 13:28 04/04/22 13:30 04/04/22 13:31 Temperature Pulse Rate 81 77 Respiratory Rate 17 18 Blood Pressure 145/70 H Pulse Oximetry 100 99 Oxygen Delivery Method Room Air 04/04/22 13:31 04/04/22 14:00 04/04/22 14:30 Temperature Pulse Rate 77 77 Respiratory Rate 20 Blood Pressure 136/91 H 133/63 133/64 Pulse Oximetry 96 Oxygen Delivery Method Room Air 04/04/22 15:00 Temperature Pulse Rate 75 Respiratory Rate 22 Blood Pressure 130/74 Pulse Oximetry 99 Oxygen Delivery Method Room Air Medical Decision Making Lab Data 04/04/22 12:00 04/04/22 12:00 Labs: Lab Results 04/04/22 04/04/22 04/04/22 Range/Units 12:00 12:00 12:00 WBC 9.1 (4.5-11.0) X10^3/uL RBC 3.62 L (4.0-5.2) X10^6/uL Hgb 11.0 L (12.0-16.0) g/dL Hct 32.8 L (36-46) % MCV 90.4 (80-100) fL MCH 30.2 (26-34) PG MCHC 33.4 (30-36) % RDW 15.1 H (11.6-14.8) % Plt Count 289 (150-400) X10^3/uL Neut % (Auto) 82.8 H (50-75) % Lymph % (Auto) 11.2 L (25-40) % Garza % (Auto) 4.9 (3-14) % Eos % (Auto) 0.2 L (2-4) % Baso % (Auto) 0.9 (0-2) % Neut # (Auto) 7500 H (2467-1965) /uL Lymph # (Auto) 1000 L (4098-2049) /uL Garza # (Auto) 400 (0-900) /uL Eos # (Auto) 0 (0-450) /uL Baso # (Auto) 100 (0-100) /uL PT 15.7 H (10.1-12.7) SECONDS INR 1.4 H (0.9-1.3) APTT 40 H (26-36) SECONDS VBG pH (7.33-7.43) VBG pCO2 (45-50) mmHg VBG pO2 (35-45) mmHg VBG HCO3 (24-28) mmol/L VBG Total CO2 (24-29) mmol/L VBG O2 Saturation (70-75) % VBG Base Excess (0-4) mmol/L FiO2 Sodium 128 L (137-145) mmol/L Potassium 4.8 (3.4-5.1) mmol/L Chloride 94 L (98-107) mmol/L Carbon Dioxide 20 L (22-32) mmol/L BUN 18 H (7-17) mg/dL Creatinine 0.64 (0.52-1.04) mg/dL Estimated GFR > 60 (>60) mL/min BUN/Creatinine Ratio 28.1 H (6-22) Glucose 590 H* (70-100) mg/dL Lactate (0.7-2.1) mmol/L Calcium 8.9 (8.4-10.2) mg/dL Total Bilirubin 2.5 H (0.2-1.3) mg/dL AST 84 H (14-36) IU/L ALT 53 H (<35) IU/L Alkaline Phosphatase 509 H (38-126) U/L Total Protein 7.5 (6.3-8.2) g/dL Albumin 3.4 L (3.5-5.0) g/dL Globulin 4.1 (1.7-4.1) g/dL Albumin/Globulin Ratio 0.8 L (1.0-2.8) Lipase 160 (23-300) U/L Procalcitonin 2.19 H (<0.5) ng/mL Urine Color Urine Appearance Urine pH (4.5-8.0) Ur Specific [place] (1.000-1.035) Urine Protein (Negative) Urine Glucose (UA) (Negative) g/dL Urine Ketones (NEGATIVE) Urine Occult Blood (Negative) Urine Nitrate (Negative) Urine Bilirubin (NEGATIVE) Urine Urobilinogen (0.2) E.U./dL Ur Leukocyte Esterase (NEGATIVE) Urine RBC (0-5/HPF) Urine WBC (0-5/HPF) Ur Squamous Epith Cells (0-5/HPF) Urine Bacteria (None) Ur Culture Indicated? Ketones (<0.27) mmol/L 04/04/22 04/04/22 04/04/22 Range/Units 12:00 12:00 12:00 WBC (4.5-11.0) X10^3/uL RBC (4.0-5.2) X10^6/uL Hgb (12.0-16.0) g/dL Hct (36-46) % MCV (80-100) fL MCH (26-34) PG MCHC (30-36) % RDW (11.6-14.8) % Plt Count (150-400) X10^3/uL Neut % (Auto) (50-75) % Lymph % (Auto) (25-40) % Garza % (Auto) (3-14) % Eos % (Auto) (2-4) % Baso % (Auto) (0-2) % Neut # (Auto) (3507-3246) /uL Lymph # (Auto) (6785-2678) /uL Garza # (Auto) (0-900) /uL Eos # (Auto) (0-450) /uL Baso # (Auto) (0-100) /uL PT (10.1-12.7) SECONDS INR (0.9-1.3) APTT (26-36) SECONDS VBG pH 7.49 H (7.33-7.43) VBG pCO2 31.4 L (45-50) mmHg VBG pO2 49 H (35-45) mmHg VBG HCO3 24 (24-28) mmol/L VBG Total CO2 25 (24-29) mmol/L VBG O2 Saturation 88 H (70-75) % VBG Base Excess 1.0 (0-4) mmol/L FiO2 21 Sodium (137-145) mmol/L Potassium (3.4-5.1) mmol/L Chloride (98-107) mmol/L Carbon Dioxide (22-32) mmol/L BUN (7-17) mg/dL Creatinine (0.52-1.04) mg/dL Estimated GFR (>60) mL/min BUN/Creatinine Ratio (6-22) Glucose (70-100) mg/dL Lactate 2.0 (0.7-2.1) mmol/L Calcium (8.4-10.2) mg/dL Total Bilirubin (0.2-1.3) mg/dL AST (14-36) IU/L ALT (<35) IU/L Alkaline Phosphatase (38-126) U/L Total Protein (6.3-8.2) g/dL Albumin (3.5-5.0) g/dL Globulin (1.7-4.1) g/dL Albumin/Globulin Ratio (1.0-2.8) Lipase (23-300) U/L Procalcitonin (<0.5) ng/mL Urine Color Urine Appearance Urine pH (4.5-8.0) Ur Specific [place] (1.000-1.035) Urine Protein (Negative) Urine Glucose (UA) (Negative) g/dL Urine Ketones (NEGATIVE) Urine Occult Blood (Negative) Urine Nitrate (Negative) Urine Bilirubin (NEGATIVE) Urine Urobilinogen (0.2) E.U./dL Ur Leukocyte Esterase (NEGATIVE) Urine RBC (0-5/HPF) Urine WBC (0-5/HPF) Ur Squamous Epith Cells (0-5/HPF) Urine Bacteria (None) Ur Culture Indicated? Ketones 0.31 H (<0.27) mmol/L 04/04/22 Range/Units 12:28 WBC (4.5-11.0) X10^3/uL RBC (4.0-5.2) X10^6/uL Hgb (12.0-16.0) g/dL Hct (36-46) % MCV (80-100) fL MCH (26-34) PG MCHC (30-36) % RDW (11.6-14.8) % Plt Count (150-400) X10^3/uL Neut % (Auto) (50-75) % Lymph % (Auto) (25-40) % Garza % (Auto) (3-14) % Eos % (Auto) (2-4) % Baso % (Auto) (0-2) % Neut # (Auto) (4498-5931) /uL Lymph # (Auto) (4684-0515) /uL Garza # (Auto) (0-900) /uL Eos # (Auto) (0-450) /uL Baso # (Auto) (0-100) /uL PT (10.1-12.7) SECONDS INR (0.9-1.3) APTT (26-36) SECONDS VBG pH (7.33-7.43) VBG pCO2 (45-50) mmHg VBG pO2 (35-45) mmHg VBG HCO3 (24-28) mmol/L VBG Total CO2 (24-29) mmol/L VBG O2 Saturation (70-75) % VBG Base Excess (0-4) mmol/L FiO2 Sodium (137-145) mmol/L Potassium (3.4-5.1) mmol/L Chloride (98-107) mmol/L Carbon Dioxide (22-32) mmol/L BUN (7-17) mg/dL Creatinine (0.52-1.04) mg/dL Estimated GFR (>60) mL/min BUN/Creatinine Ratio (6-22) Glucose (70-100) mg/dL Lactate (0.7-2.1) mmol/L Calcium (8.4-10.2) mg/dL Total Bilirubin (0.2-1.3) mg/dL AST (14-36) IU/L ALT (<35) IU/L Alkaline Phosphatase (38-126) U/L Total Protein (6.3-8.2) g/dL Albumin (3.5-5.0) g/dL Globulin (1.7-4.1) g/dL Albumin/Globulin Ratio (1.0-2.8) Lipase (23-300) U/L Procalcitonin (<0.5) ng/mL Urine Color Yellow Urine Appearance Clear Urine pH 6.0 (4.5-8.0) Ur Specific [place] <=1.005 (1.000-1.035) Urine Protein Negative (Negative) Urine Glucose (UA) 2+ H (Negative) g/dL Urine Ketones Negative (NEGATIVE) Urine Occult Blood Negative (Negative) Urine Nitrate Negative (Negative) Urine Bilirubin Negative (NEGATIVE) Urine Urobilinogen 4.0 H (0.2) E.U./dL Ur Leukocyte Esterase Negative (NEGATIVE) Urine RBC None seen (0-5/HPF) Urine WBC None seen (0-5/HPF) Ur Squamous Epith Cells 1-5 /hpf (0-5/HPF) Urine Bacteria None seen (None) Ur Culture Indicated? Cult not indicated Ketones (<0.27) mmol/L Point of Care Testing Glucose POC 483 Point of care testing: Point of Care Testing Glucose POC [address] scan - abdomen/pelvis: Radiologist's Impression: Close Abdomen/Pelvis CT (Signed) Ellie Elkins - 04/04/22 Launch?Image [address] [address] [address] Scan Report Signed Patient: Viviane Mendoza MR#: [id number] : 1960 Acct:[id number] Age/Sex: 61 / F Date of Service: 04/04/22 Loc: ED Accession Number: [id number] ?? Procedure: CT abdomen pelvis w con Ordering Provider: Tamika Cardona D.O. PROCEDURE:? CT ABDOMEN PELVIS W CON ? INDICATIONS:? liver biopsy 03/11, ? abcess perineal area ? TECHNIQUE:? After the administration of intravenous contrast, axial sections acquired from the lung bases to the pubic symphysis.? Coronal and sagittal reformats were performed.? For radiation dose reduction, the following was used:? automated exposure control, adjustment of mA and/or kV according to patient size.? ? COMPARISON:? [facility], CT, CT CHEST ABD PEL W CON, 03/11/2022, 10:17.? [facility], CT, CT BIOPSY LIVER, 03/11/2022, 13:57.? [facility], CT, CT ABDOMEN PELVIS W CON, 03/22/2020, 14:23. ? FINDINGS:? Image quality:? Excellent.? ? Lung bases:? Unremarkable. Heart:? No significant findings. ? ABDOMEN: Liver:? An infiltrative centrally hypodense, peripherally enhancing mass is redemonstrated within the right hepatic lobe.? This is similar in size to the comparison CT dated March 11, 2022. Gallbladder:? A calcified gallstone is present within the gallbladder fundus.? There is circumferential gallbladder wall thickening which is a new finding when compared with the prior study. Biliary ducts:? No intrahepatic biliary ductal dilatation. Pancreas:? Unremarkable.? ? Spleen:? Unremarkable.? ? Adrenal Glands:? Unremarkable.? ? Kidneys and Ureters:? Unremarkable.? ? ? Stomach and Bowel:? The stomach and small bowel demonstrate normal caliber and wall thickness.? The appendix is thin walled.? Scattered colonic diverticular outpouchings are present throughout the colon.? Circumferential wall thickening is present within the sigmoid colon.? There is no associated pericolonic fat stranding present.? No bowel obstruction. Peritoneum:? There is trace low-density free pelvic fluid.? No pneumoperitoneum. ? Ventral Wall: ? No hernias.? Abdominal Nodes:? Multiple enlarged lauren hepatic lymph nodes are redemonstrated.? As before, these are hypodense centrally and enhance peripherally. Vessels:? Aorta and inferior vena cava are normal in size.? ? PELVIS: Pelvic Organs:? Unremarkable.? ? Bladder:? Unremarkable.? ? Pelvic Nodes: No enlarged lymph nodes.? Miscellaneous: No hernias are seen. ? ? A low-density fluid collection is present within the right subcutaneous tissues adjacent to the gluteal fold (series 2/image 100).? There is likely a small tract that extends to the skin surface.? A small tract also extends towards the perineum, but this is incompletely characterized on CT. ? Bones:? Unremarkable.? IMPRESSION:? ? 1. Infiltrative hepatic mass redemonstrated with enlarged centrally hypodense enlarged lauren hepatic lymph nodes. ? 2. Segmental circumferential wall thickening of the sigmoid colon.? Findings are suspicious for colonic neoplasm and may represent the primary adenocarcinoma associated with the liver lesion.? ? 3. Colonic diverticulosis.? No acute diverticulitis.? Normal appendix. ? 4. Right peroneal abscess.? There is likely a tract which extends to the skin surface and a tract which extends to the perineum.? If further characterization is warranted, rectal MRI is recommended.? ? Dictated by: Ellie Elkins M.D. on 04/04/2022 at 14:06 ? ? Approved by: Ellie Elkins M.D. on 04/04/2022 at 14:21?? Chest x-ray: Radiologist's Impression: [address] [address] XRay Report Signed Patient: Viviane Mendoza MR#: [id number] : 1960 Acct:[id number] Age/Sex: 61 / F Date of Service: 03/11/22 Loc: OR Accession Number: [id number] ?? Procedure: XR chest 1V Ordering Provider: Uday Rossi MD PROCEDURE:? XR CHEST 1V ? INDICATIONS:? post liver biopsy ? TECHNIQUE:? One view of the chest was acquired.? ? COMPARISON:? [facility], CR, XR CHEST 1V, 03/22/2020, 14:02. ? FINDINGS:? ? Surgical changes and devices:? None.? ? Lungs and pleura:? Lungs are clear.? No pleural effusions or pneumothorax.? ? Mediastinum:? Mediastinal contours appear normal.? Heart size is normal.? ? Bones and chest wall:? No suspicious bony lesions.? Overlying soft tissues appear unremarkable.? ? IMPRESSION:? No acute process. ? ? Dictated by: Amelie Coleman M.D. on 03/11/2022 at 16:55 ? ? Approved by: Amelie Coleman M.D. on 03/11/2022 at 16:56?? MDM Narrative Medical decision making narrative: This is a 61-year-old female with longstanding hyperglycemia not controlled with her home medications, sounds like she has typically elevated hemoglobin A1c. This is likely been leading patient had more frequent yeast infections but appears she is developed an abscess that is just of the right labia majora extending backwards along the buttock towards the rectum. Does not appear to have perirectal involvement. Area is large enough that patient if there is an abscess which I can not palpate it is quite indurated but I suspect there is [address] abdomen pelvis was obtained to evaluate with more detail. Patient likely needs admission for hyperglycemia she is not quite DKA she has not anion gap 14 with a glucose of 538 bicarb 20 positive ketones but VBG shows a pH 7.49 patient has LFTs are rising but this may also be secondary to her liver biopsy as well as a positive procalcitonin. CT shows fluid collection consistent with abscess not completely visualized but when I measure at least 4-5 cm in length by about 2 cm in width. Dislodged may need drainage in the OR, there is not a clear fluctuant area that can be easily drained in the ER and has extensive area. Patient also has complications with recent liver biopsy, liver cancer and thickening of the sigmoid which could be malignancy versus infection. Patient has hyperglycemia, she is not in DKA but does have anion gap, ketones along with a positive procalcitonin she is not septic at this point but was treated with fluids, antibiotics, no need additional glucose control on admission. Spoke with Dr. Munoz who is happy to see the patient. Plan for admission to her medical service she is a [facility] patient says spoke with Dr. Ambrocio who will see patient shortly. Patient appears received her Zosyn, fluids receiving Flagyl and plan for repeat point of care glucose unlikely will start insulin subQ. Discharge Plan Departure Patient Disposition: Admitted As Inpatient Clinical Impression: Hyperglycemia, Cellulitis and abscess of buttock, Cancer of liver Admit Date/Time: 04/04/22 15:04 Admit Provider: Tony Ambrocio
--- NOTE | 2022-04-04 13:06 | DI.CT.S_ITS ---
PROCEDURE: CT ABDOMEN PELVIS W CON INDICATIONS: liver biopsy 03/11, ? abcess perineal area TECHNIQUE: After the administration of intravenous contrast, axial sections acquired from the lung bases to the pubic symphysis. Coronal and sagittal reformats were performed. For radiation dose reduction, the following was used: automated exposure control, adjustment of mA and/or kV according to patient size. COMPARISON: [facility], CT, CT CHEST ABD PEL W CON, 03/11/2022, 10:17. [facility], CT, CT BIOPSY LIVER, 03/11/2022, 13:57. [facility], CT, CT ABDOMEN PELVIS W CON, 03/22/2020, 14:23. FINDINGS: Image quality: Excellent. Lung bases: Unremarkable. Heart: No significant findings. ABDOMEN: Liver: An infiltrative centrally hypodense, peripherally enhancing mass is redemonstrated within the right hepatic lobe. This is similar in size to the comparison CT dated March 11, 2022. Gallbladder: A calcified gallstone is present within the gallbladder fundus. There is circumferential gallbladder wall thickening which is a new finding when compared with the prior study. Biliary ducts: No intrahepatic biliary ductal dilatation. Pancreas: Unremarkable. Spleen: Unremarkable. Adrenal Glands: Unremarkable. Kidneys and Ureters: Unremarkable. Stomach and Bowel: The stomach and small bowel demonstrate normal caliber and wall thickness. The appendix is thin walled. Scattered colonic diverticular outpouchings are present throughout the colon. Circumferential wall thickening is present within the sigmoid colon. There is no associated pericolonic fat stranding present. No bowel obstruction. Peritoneum: There is trace low-density free pelvic fluid. No pneumoperitoneum. Ventral Wall: No hernias. Abdominal Nodes: Multiple enlarged lauren hepatic lymph nodes are redemonstrated. As before, these are hypodense centrally and enhance peripherally. Vessels: Aorta and inferior vena cava are normal in size. PELVIS: Pelvic Organs: Unremarkable. Bladder: Unremarkable. Pelvic Nodes: No enlarged lymph nodes. Miscellaneous: No hernias are seen. A low-density fluid collection is present within the right subcutaneous tissues adjacent to the gluteal fold (series 2/image 100). There is likely a small tract that extends to the skin surface. A small tract also extends towards the perineum, but this is incompletely characterized on CT. Bones: Unremarkable. IMPRESSION: 1. Infiltrative hepatic mass redemonstrated with enlarged centrally hypodense enlarged lauren hepatic lymph nodes. 2. Segmental circumferential wall thickening of the sigmoid colon. Findings are suspicious for colonic neoplasm and may represent the primary adenocarcinoma associated with the liver lesion. 3. Colonic diverticulosis. No acute diverticulitis. Normal appendix. 4. Right peroneal abscess. There is likely a tract which extends to the skin surface and a tract which extends to the perineum. If further characterization is warranted, rectal MRI is recommended. Dictated by: Ellie Elkins M.D. on 04/04/2022 at 14:06 Approved by: Ellie Elkins M.D. on 04/04/2022 at 14:21
[2022-04-04] MEDS: PIPERACILLIN/TAZO 4.5 GM in SODIUM CHLORIDE 0.9% 100 ML IV (13:30)
[2022-04-04] MEDS: SODIUM CHLORIDE 0.9% 2,041.17 ML 680.39 ML IV (13:30)
[2022-04-04 13:39] LABS: Appearance Urine UA CLEAR; Bilirubin Urine UA NEGATIVE (NEGATIVE); Color Urine UA YELLOW; Glucose Urine UA 2+ g/dL (Negative); Ketones Urine UA NEGATIVE (NEGATIVE); Leukocyte Esterase Urine UA NEGATIVE (NEGATIVE); Nitrite Urine UA NEGATIVE (Negative); Occult Blood Urine UA NEGATIVE (Negative); Protein Urine UA NEGATIVE (Negative); Specific Gravity Urine UA <=1.005 (1.000-1.035)
[2022-04-04 13:49] LABS: Bacteria Urine None Seen; Culture Indicated Urine Cult Not Indicated; RBC Urine None Seen (0-5/HPF); Squamous Epithelial Cell Urine 1-5 /HPF (0-5/HPF); WBC Urine None Seen (0-5/HPF)
[2022-04-04] MEDS: metroNIDAZOLE 500 MG/100 ML PIGGYBACK 100 MG IV (15:22)
[2022-04-04 15:57] LABS: COVID19 -Nasal RAPID Negative (Negative)
--- NOTE | 2022-04-04 17:09 | PM.HP.1 ---
History of Present Illness History of Present Illness Date Patient Seen: 04/04/22 Time Patient Seen: 15:30 Chief complaint: cyst on groin, cancer, diabetes Narrative: Pt with recent diagnosis of liver cancer s/p biopsy being worked up by oncology with plan for first outpatient visit today. History of increasingly poorly controlled diabetes now with BGs in the 500s although does not appear to be in active DKA or HHS Hx of pernicious groin yeast infections now presents with groin mass and pain found to have deep perineal abscess on CT Patient History Medical History Diabetes type 2, controlled Tinea cruris Family & Social History Safety & Behavioral: Feels Safe in Current Yes Environment Tobacco & Substance use: Smoking Status Current every day smoker alcohol intake frequency a few times a week Substance Use Type marijuana Meds Home Medications and Allergies Home Medications Medication Instructions Recorded Confirmed Type omeprazole 40 mg capsule,delayed 40 mg PO BID #60 caps 03/22/20 04/04/22 Rx release sucralfate 1 gram tablet (Carafate) 1 g PO QID #60 tabs 03/22/20 04/04/22 Rx atorvastatin 10 mg tablet 10 mg PO DAILY 03/02/22 04/04/22 History cholecalciferol (vitamin D3) 50 50 mcg PO DAILY 03/02/22 04/04/22 History mcg (2,000 unit) capsule losartan 100 mg tablet 100 mg PO DAILY 03/02/22 04/04/22 History metoprolol succinate 100 mg 100 mg PO BID 03/02/22 04/04/22 History tablet,extended release 24 hr spironolactone 25 mg tablet 25 mg PO BID 03/02/22 04/04/22 History glyburide 5 mg tablet 10 mg PO BID 04/04/22 04/04/22 History hydromorphone 4 mg tablet 4 mg PO QID 04/04/22 04/04/22 History ondansetron HCl 4 mg tablet 4 mg PO Q6HR 04/04/22 04/04/22 History Allergies Allergy/AdvReac Type Severity Reaction Status Date / Time Sulfa (Sulfonamide Allergy Unknown Verified 04/04/22 11:30 Antibiotics) Review of Systems Review of Systems Narrative: all systems reviewed and negative except as otherwise documented in HPI Exam Vital Signs (past 8 hours): - 04/04/22 11:30 04/04/22 13:27 04/04/22 13:28 Temperature 97.4 F L Pulse Rate 66 75 74 Respiratory Rate 20 21 20 Blood Pressure 120/76 Pulse Oximetry 100 99 99 Oxygen Delivery Method Room Air 04/04/22 13:28 04/04/22 13:30 04/04/22 13:31 Temperature Pulse Rate 81 77 Respiratory Rate 17 18 Blood Pressure 145/70 H Pulse Oximetry 100 99 Oxygen Delivery Method Room Air 04/04/22 13:31 04/04/22 14:00 04/04/22 14:30 Temperature Pulse Rate 77 77 Respiratory Rate 20 Blood Pressure 136/91 H 133/63 133/64 Pulse Oximetry 96 Oxygen Delivery Method Room Air 04/04/22 15:00 04/04/22 15:30 Temperature Pulse Rate 75 76 Respiratory Rate 22 22 Blood Pressure 130/74 151/68 H Pulse Oximetry 99 98 Oxygen Delivery Method Room Air Room Air Oxygen Delivery Method Room Air Objective Labs 04/04/22 12:00 04/04/22 12:00 Labs: Laboratory Results - last 24 hr 04/04/22 04/04/22 04/04/22 12:00 12:00 12:00 WBC 9.1 RBC 3.62 L Hgb 11.0 L Hct 32.8 L MCV 90.4 MCH 30.2 MCHC 33.4 RDW 15.1 H Plt Count 289 Neut % (Auto) 82.8 H Lymph % (Auto) 11.2 L [place] % (Auto) 4.9 Eos % (Auto) 0.2 L Baso % (Auto) 0.9 Neut # (Auto) 7500 H Lymph # (Auto) 1000 L [place] # (Auto) 400 Eos # (Auto) 0 Baso # (Auto) 100 PT 15.7 H INR 1.4 H APTT 40 H VBG pH VBG pCO2 VBG pO2 VBG HCO3 VBG Total CO2 VBG O2 Saturation VBG Base Excess FiO2 Sodium 128 L Potassium 4.8 Chloride 94 L Carbon Dioxide 20 L BUN 18 H Creatinine 0.64 Estimated GFR > 60 BUN/Creatinine Ratio 28.1 H Glucose 590 H* Lactate Calcium 8.9 Total Bilirubin 2.5 H AST 84 H ALT 53 H Alkaline Phosphatase 509 H Total Protein 7.5 Albumin 3.4 L Globulin 4.1 Albumin/Globulin Ratio 0.8 L Lipase 160 Procalcitonin 2.19 H Urine Color Urine Appearance Urine pH Ur Specific [place] Urine Protein Urine Glucose (UA) Urine Ketones Urine Occult Blood Urine Nitrate Urine Bilirubin Urine Urobilinogen Ur Leukocyte Esterase Urine RBC Urine WBC Ur Squamous Epith Cells Urine Bacteria Ur Culture Indicated? Ketones SARS-CoV-2 (PCR) 04/04/22 04/04/22 04/04/22 12:00 12:00 12:00 WBC RBC Hgb Hct MCV MCH MCHC RDW Plt Count Neut % (Auto) Lymph % (Auto) [place] % (Auto) Eos % (Auto) Baso % (Auto) Neut # (Auto) Lymph # (Auto) [place] # (Auto) Eos # (Auto) Baso # (Auto) PT INR APTT VBG pH 7.49 H VBG pCO2 31.4 L VBG pO2 49 H VBG HCO3 24 VBG Total CO2 25 VBG O2 Saturation 88 H VBG Base Excess 1.0 FiO2 21 Sodium Potassium Chloride Carbon Dioxide BUN Creatinine Estimated GFR BUN/Creatinine Ratio Glucose Lactate 2.0 Calcium Total Bilirubin AST ALT Alkaline Phosphatase Total Protein Albumin Globulin Albumin/Globulin Ratio Lipase Procalcitonin Urine Color Urine Appearance Urine pH Ur Specific [place] Urine Protein Urine Glucose (UA) Urine Ketones Urine Occult Blood Urine Nitrate Urine Bilirubin Urine Urobilinogen Ur Leukocyte Esterase Urine RBC Urine WBC Ur Squamous Epith Cells Urine Bacteria Ur Culture Indicated? Ketones 0.31 H SARS-CoV-2 (PCR) 04/04/22 04/04/22 12:28 15:19 WBC RBC Hgb Hct MCV MCH MCHC RDW Plt Count Neut % (Auto) Lymph % (Auto) [place] % (Auto) Eos % (Auto) Baso % (Auto) Neut # (Auto) Lymph # (Auto) [place] # (Auto) Eos # (Auto) Baso # (Auto) PT INR APTT VBG pH VBG pCO2 VBG pO2 VBG HCO3 VBG Total CO2 VBG O2 Saturation VBG Base Excess FiO2 Sodium Potassium Chloride Carbon Dioxide BUN Creatinine Estimated GFR BUN/Creatinine Ratio Glucose Lactate Calcium Total Bilirubin AST ALT Alkaline Phosphatase Total Protein Albumin Globulin Albumin/Globulin Ratio Lipase Procalcitonin Urine Color Yellow Urine Appearance Clear Urine pH 6.0 Ur Specific [place] <=1.005 Urine Protein Negative Urine Glucose (UA) 2+ H Urine Ketones Negative Urine Occult Blood Negative Urine Nitrate Negative Urine Bilirubin Negative Urine Urobilinogen 4.0 H Ur Leukocyte Esterase Negative Urine RBC None seen Urine WBC None seen Ur Squamous Epith Cells 1-5 /hpf Urine Bacteria None seen Ur Culture Indicated? Cult not indicated Ketones SARS-CoV-2 (PCR) Negative Assessment & Plan Assessment & Plan narrative: #groin/perirectal abscess Dr. Munoz aware and planning intervention in OR tomorrow. NPO after midnight, continue broad spectrum abx. #liver adenocarcinoma #hx of alcoholism per biopsy, imminently establishing with oncology, LFTs elevated, monitor, prn benzo #diabetes mellitus, non-insulin dependent on admission #hyperglycemia, acute, present on admission clearly she has outstripped the capacity of her oral meds to manage she reports she was told to stop metformin and start glyburide per note from Dr. Ag she was to add glyburide to existing metformin regimen regardless she is clearly underdosed starting inpatient insulin to get numbers down starting with 20U short acting now, 30U long acting 10U premeal with SSI will need aggressive BG management for wound healing #HLD stable continue home statin #muscle spasms stable continue home diazepam and etodolac prn Code: full MDM [facility] [place] [phone] Diet: diabetic, NPO after midnight DVT: lovenox Time Spent With Patient Critical Care time: I spent a total of [] minutes of critical care time on this patient's care today; this time is exclusive of procedural time.
[2022-04-04] MEDS: ONDANSETRON 4 MG/2 ML INJ IV (18:20)
[2022-04-04] MEDS: MAG HYDROX/ALUM/SIMETH 30 ML UDC PO (18:20)
[2022-04-04] MEDS: CALCIUM CARBONATE 500 MG TAB 1000 MG PO (18:21)
[2022-04-04] MEDS: HYDROMORPHONE 1 MG INJ IV (18:22)
[2022-04-04] MEDS: INSULIN LISPRO 100 UNIT/ML 3ML VIAL 20 UNIT SUBCUT (18:37)
[2022-04-04] MEDS: SODIUM CHLORIDE 0.9% 1,000 ML 150 ML IV (18:38)
[2022-04-04] MEDS: PANTOPRAZOLE DR 40 MG TABLET PO (21:17)
[2022-04-04] MEDS: INSULIN GLARGINE 100 UNIT/ML 3ML PEN 30 UNIT SUBCUT (21:20)
[2022-04-04] MEDS: INSULIN LISPRO 100 UNIT/ML 3ML VIAL SUBCUT (21:21)
[2022-04-04] MEDS: HYDROMORPHONE 4 MG TABLET PO (21:29)
[2022-04-04] MEDS: SUCRALFATE 1 GM TABLET PO (21:29)
[2022-04-04] MEDS: METOPROLOL ER 50 MG TABLET 100 MG PO (21:30)
[2022-04-04] MEDS: DOCUSATE 100 MG CAPSULE PO (21:30)
[2022-04-04] MEDS: SPIRONOLACTONE 25 MG TABLET PO (21:30)
[2022-04-04] MEDS: ONDANSETRON 4 MG ODT PO (23:35)
[2022-04-05] VITALS (19 sets, daily range): BP systolic 92–126; BP diastolic 57–79; PULSE 67–78; RESP 14–24; TEMP 36.1–37.6; O2SAT 96–99; BMI 23.3
[2022-04-05] MEDS: SODIUM CHLORIDE 0.9% 1,000 ML 150 ML IV ×3 (01:46→17:38)
[2022-04-05 06:09] LABS: Add Manual Diff / Slide Review NO; Basophils Absolute Auto 0 /uL (0-100); Basophils Percent Auto 0.5 % (0-2); Eosinophils Absolute Auto 100 /uL (0-450); Eosinophils Percent Auto 0.9 % (2-4); Hematocrit 29.2 % (36-46); Hemoglobin 9.8 g/dL (12.0-16.0); Lymphocytes Absolute Auto 1100 /uL (1100-4500); Lymphocytes Percent Auto 12.8 % (25-40); Mean Corpuscular HGB Conc 33.4 % (30-36); Mean Corpuscular Hemoglobin 30.1 PG (26-34); Mean Corpuscular Volume 90.1 fL (80-100); Monocytes Absolute Auto 900 /uL (0-900); Monocytes Percent Auto 9.8 % (3-14); Neutrophils Absolute Auto 6800 /uL (1500-7000); Platelet Count 248 X10^3/uL (150-400); Red Blood Cell Count 3.24 X10^6/uL (4.0-5.2); Red Cell Distribution Width 15.1 % (11.6-14.8)
[2022-04-05] MEDS: ONDANSETRON 4 MG ODT PO ×4 (06:10→23:45)
[2022-04-05] MEDS: PANTOPRAZOLE DR 40 MG TABLET PO ×2 (06:10→21:20)
[2022-04-05 06:22] LABS: Alanine Aminotransferase 44 IU/L (<35); Albumin 2.7 g/dL (3.5-5.0); Albumin Globulin Ratio 0.8 (1.0-2.8); Alkaline Phosphatase 394 U/L (38-126); Aspartate Aminotransferase 66 IU/L (14-36); BUN Creatinine Ratio 22.9 (6-22); Blood Urea Nitrogen 11 mg/dL (7-17); Calcium 7.9 mg/dL (8.4-10.2); Carbon Dioxide 22 mmol/L (22-32); Chloride 103 mmol/L (98-107); Estimated Glomerular Filt Rate > 60 mL/min (>60); Globulin 3.6 g/dL (1.7-4.1); Glucose 183 mg/dL (70-100); HEMOLYSIS < 15 (0-50); Potassium 4.1 mmol/L (3.4-5.1); Sodium 132 mmol/L (137-145); Total Protein 6.3 g/dL (6.3-8.2)
--- NOTE | 2022-04-05 06:40 | PC.NURSE ---
Patient NPO since midnight for surgery, patient verbalizes understanding and NPO sign on patient's door. Patient's pain controlled with Dilaudid po and nausea controlled with Zofran SL, no emesis.
--- NOTE | 2022-04-05 07:47 | P.CONS_ITS ---
History of Present Illness Consult details Date Patient Seen: 04/05/22 Time Patient Seen: 07:47 Chief complaint: cyst on groin, cancer, diabetes Narrative: Viviane is a 61-year-old woman who presented last night with perirectal pain. She has never had a prior incision and drainage of a perirectal abscess but she has had ?pimples? in the area that she was able to drain on her own in the past. Unrelated lately, she has a recent liver mass that has been biopsied and shown to be some sort of adenocarcinoma and she was supposed to see Oncology today but had to reschedule because she came in for her perirectal pain. She has been quite hyperglycemic and is admitted by her primary service for glucose management. Meds Home Medications and Allergies Home Medications Medication Instructions Recorded Confirmed Type omeprazole 40 mg capsule,delayed 40 mg PO BID #60 caps 03/22/20 04/04/22 Rx release sucralfate 1 gram tablet (Carafate) 1 g PO QID #60 tabs 03/22/20 04/04/22 Rx atorvastatin 10 mg tablet 10 mg PO DAILY 03/02/22 04/04/22 History cholecalciferol (vitamin D3) 50 50 mcg PO DAILY 03/02/22 04/04/22 History mcg (2,000 unit) capsule losartan 100 mg tablet 100 mg PO DAILY 03/02/22 04/04/22 History metoprolol succinate 100 mg 100 mg PO BID 03/02/22 04/04/22 History tablet,extended release 24 hr spironolactone 25 mg tablet 25 mg PO BID 03/02/22 04/04/22 History glyburide 5 mg tablet 10 mg PO BID 04/04/22 04/04/22 History hydromorphone 4 mg tablet 4 mg PO QID 04/04/22 04/04/22 History ondansetron HCl 4 mg tablet 4 mg PO Q6HR 04/04/22 04/04/22 History Allergies Allergy/AdvReac Type Severity Reaction Status Date / Time Sulfa (Sulfonamide Allergy Unknown Verified 04/04/22 11:30 Antibiotics) Exam Vital Signs (past 8 hours): - 04/05/22 00:00 04/05/22 03:45 04/05/22 04:00 Temperature 98 F 97.0 F L 97.0 F L Pulse Rate 76 72 72 Respiratory Rate 17 16 16 Blood Pressure 122/68 110/65 110/65 Pulse Oximetry 98 96 96 Oxygen Flow Rate 0 Oxygen Delivery Method Room Air Oxygen Flow Rate 0 Narrative Exam Narrative: Tender indurated area in the right lateral perirectal region consistent with an underlying abscess. No drainage. Objective Labs 04/05/22 05:53 04/05/22 05:53 Labs: Laboratory Results - last 24 hr 04/04/22 04/04/22 04/04/22 12:00 12:00 12:00 WBC 9.1 RBC 3.62 L Hgb 11.0 L Hct 32.8 L MCV 90.4 MCH 30.2 MCHC 33.4 RDW 15.1 H Plt Count 289 Neut % (Auto) 82.8 H Lymph % (Auto) 11.2 L [place] % (Auto) 4.9 Eos % (Auto) 0.2 L Baso % (Auto) 0.9 Neut # (Auto) 7500 H Lymph # (Auto) 1000 L [place] # (Auto) 400 Eos # (Auto) 0 Baso # (Auto) 100 PT 15.7 H INR 1.4 H APTT 40 H VBG pH VBG pCO2 VBG pO2 VBG HCO3 VBG Total CO2 VBG O2 Saturation VBG Base Excess FiO2 Sodium 128 L Potassium 4.8 Chloride 94 L Carbon Dioxide 20 L BUN 18 H Creatinine 0.64 Estimated GFR > 60 BUN/Creatinine Ratio 28.1 H Glucose 590 H* Lactate Calcium 8.9 Total Bilirubin 2.5 H AST 84 H ALT 53 H Alkaline Phosphatase 509 H Total Protein 7.5 Albumin 3.4 L Globulin 4.1 Albumin/Globulin Ratio 0.8 L Lipase 160 Procalcitonin 2.19 H Urine Color Urine Appearance Urine pH Ur Specific [place] Urine Protein Urine Glucose (UA) Urine Ketones Urine Occult Blood Urine Nitrate Urine Bilirubin Urine Urobilinogen Ur Leukocyte Esterase Urine RBC Urine WBC Ur Squamous Epith Cells Urine Bacteria Ur Culture Indicated? Ketones SARS-CoV-2 (PCR) 04/04/22 04/04/22 04/04/22 12:00 12:00 12:00 WBC RBC Hgb Hct MCV MCH MCHC RDW Plt Count Neut % (Auto) Lymph % (Auto) [place] % (Auto) Eos % (Auto) Baso % (Auto) Neut # (Auto) Lymph # (Auto) [place] # (Auto) Eos # (Auto) Baso # (Auto) PT INR APTT VBG pH 7.49 H VBG pCO2 31.4 L VBG pO2 49 H VBG HCO3 24 VBG Total CO2 25 VBG O2 Saturation 88 H VBG Base Excess 1.0 FiO2 21 Sodium Potassium Chloride Carbon Dioxide BUN Creatinine Estimated GFR BUN/Creatinine Ratio Glucose Lactate 2.0 Calcium Total Bilirubin AST ALT Alkaline Phosphatase Total Protein Albumin Globulin Albumin/Globulin Ratio Lipase Procalcitonin Urine Color Urine Appearance Urine pH Ur Specific [place] Urine Protein Urine Glucose (UA) Urine Ketones Urine Occult Blood Urine Nitrate Urine Bilirubin Urine Urobilinogen Ur Leukocyte Esterase Urine RBC Urine WBC Ur Squamous Epith Cells Urine Bacteria Ur Culture Indicated? Ketones 0.31 H SARS-CoV-2 (PCR) 04/04/22 04/04/22 04/05/22 12:28 15:19 05:53 WBC 9.0 RBC 3.24 L Hgb 9.8 L Hct 29.2 L MCV 90.1 MCH 30.1 MCHC 33.4 RDW 15.1 H Plt Count 248 Neut % (Auto) 76.0 H Lymph % (Auto) 12.8 L [place] % (Auto) 9.8 Eos % (Auto) 0.9 L Baso % (Auto) 0.5 Neut # (Auto) 6800 Lymph # (Auto) 1100 [place] # (Auto) 900 Eos # (Auto) 100 Baso # (Auto) 0 PT INR APTT VBG pH VBG pCO2 VBG pO2 VBG HCO3 VBG Total CO2 VBG O2 Saturation VBG Base Excess FiO2 Sodium Potassium Chloride Carbon Dioxide BUN Creatinine Estimated GFR BUN/Creatinine Ratio Glucose Lactate Calcium Total Bilirubin AST ALT Alkaline Phosphatase Total Protein Albumin Globulin Albumin/Globulin Ratio Lipase Procalcitonin Urine Color Yellow Urine Appearance Clear Urine pH 6.0 Ur Specific [place] <=1.005 Urine Protein Negative Urine Glucose (UA) 2+ H Urine Ketones Negative Urine Occult Blood Negative Urine Nitrate Negative Urine Bilirubin Negative Urine Urobilinogen 4.0 H Ur Leukocyte Esterase Negative Urine RBC None seen Urine WBC None seen Ur Squamous Epith Cells 1-5 /hpf Urine Bacteria None seen Ur Culture Indicated? Cult not indicated Ketones SARS-CoV-2 (PCR) Negative 04/05/22 05:53 WBC RBC Hgb Hct MCV MCH MCHC RDW Plt Count Neut % (Auto) Lymph % (Auto) [place] % (Auto) Eos % (Auto) Baso % (Auto) Neut # (Auto) Lymph # (Auto) [place] # (Auto) Eos # (Auto) Baso # (Auto) PT INR APTT VBG pH VBG pCO2 VBG pO2 VBG HCO3 VBG Total CO2 VBG O2 Saturation VBG Base Excess FiO2 Sodium 132 L Potassium 4.1 Chloride 103 Carbon Dioxide 22 BUN 11 Creatinine 0.48 L Estimated GFR > 60 BUN/Creatinine Ratio 22.9 H Glucose 183 H D Lactate Calcium 7.9 L Total Bilirubin 2.0 H AST 66 H ALT 44 H Alkaline Phosphatase 394 H Total Protein 6.3 Albumin 2.7 L Globulin 3.6 Albumin/Globulin Ratio 0.8 L Lipase Procalcitonin Urine Color Urine Appearance Urine pH Ur Specific [place] Urine Protein Urine Glucose (UA) Urine Ketones Urine Occult Blood Urine Nitrate Urine Bilirubin Urine Urobilinogen Ur Leukocyte Esterase Urine RBC Urine WBC Ur Squamous Epith Cells Urine Bacteria Ur Culture Indicated? Ketones SARS-CoV-2 (PCR) [facility] Medical History Diabetes type 2, controlled Tinea cruris Social History household members: spouse Tobacco & Substance Use Smoking Status: Current every day smoker alcohol intake: current Assessment & Plan Assessment and plan (1) Perirectal abscess: Status: Acute Plan Recommend incision and drainage in the operating room of the perirectal abscess. I discussed the possibility that she could have a fistula once the inflammation subsides. This could be done by me or any of my partners whoever is available first. Time Spent With Patient Critical Care time: I spent a total of [] minutes of critical care time on this patient's care today; this time is exclusive of procedural time.
[2022-04-05] MEDS: LACTATED RINGERS 1,000 ML 42 ML IV (09:52)
[2022-04-05] MEDS: BUPIVACAINE 0.25% W/ EPI 30 ML VIAL INJ (10:05)
--- NOTE | 2022-04-05 10:05 | SUR.OPER ---
Lithotomy on padded OR bed, head on pillow, arms secured on padded arm boards at <90 degrees abduction. Legs secured in padded yellow fins stirrups. Pt positioned per direction and supervision of Dr Rhoades.
--- NOTE | 2022-04-05 10:21 | PM.OP.1 ---
Operative Date/Time/Diagnoses Date of procedure: 04/05/22 Pre-op diagnosis: Perirectal abscess Post-op diagnosis: same Procedure & Clinicians Procedure: Incision and drainage of perirectal abscess Same procedure as scheduled: Yes Surgeon: Annie Rhoades Click Yes if Unassisted: Yes Anesthesia Type: MAC +/- and Local (Bupivacaine with epinephrine) Operative Notes Findings: Large abscess cavity perirectal abscess- ishiorectal location. Size of opening is 5 cm x 3cm elipse. Cavity underneath tracks about 8 cm anteriorly and 10 posteriorly it is approximately 10 cm in width. Specimen(s): none sent Procedure in detail: Patient was taken to the operating room and placed in a lithotomy position. Time-out was performed. No antibiotics are indicated. Conscious sedation and local anesthesia was used. Bupivacaine with epinephrine was infused around the area of fluctuance on the right buttock. This area corresponds to the CT scan which I personally reviewed. An elliptical incision was made over lying this area. A large amount of purulent material was expressed. A finger was inserted into the abscess cavity and swept around breaking down loculations. The cavity itself was quite large and both anteriorly and posteriorly reached almost to the extent of my finger. Though my fingers are small, the tunnel posteriorly was 10 cm in depth and anteriorly 8 cm. The cavity was thoroughly irrigated with normal saline. Next the remainder of the local anesthetic was infused around the anal area and the skin around the incision. The incision was packed with Kerlix gauze and dressed with 4x4s and mesh panties. Patient tolerated the procedure well and went good condition to the postoperative care unit EBL was minimal and there were no complications Post-operative Condition: stable Plan for aftercare: My general prescription for after care is to remove the packing after 24 hours. After that I usually recommend Sitz baths or showering with a shower head to irrigate the cavity twice daily. If this is too difficult then packing can be done once daily as an alternative but usually I find the Sitz baths disease here for people. I will check back on her in my office in 7-10 days. She probably will need a home care nurse for assistance with wound care.
[2022-04-05] MEDS: ATORVASTATIN 20 MG TABLET 10 MG PO (11:25)
[2022-04-05] MEDS: METFORMIN XR 500 MG TABLET 1000 MG PO ×2 (11:26→17:25)
[2022-04-05] MEDS: CHOLECALCIFEROL (VITAMIN D3) 1,000 UNIT TABLET 2000 UNIT PO (11:26)
[2022-04-05] MEDS: METOPROLOL ER 50 MG TABLET 100 MG PO ×2 (11:27→21:20)
[2022-04-05] MEDS: glyBURIDE 2.5 MG TABLET 10 MG PO ×2 (11:29→17:16)
[2022-04-05] MEDS: SUCRALFATE 1 GM TABLET PO ×3 (11:29→21:20)
[2022-04-05] MEDS: INSULIN LISPRO 100 UNIT/ML 3ML VIAL 10 UNIT SUBCUT ×2 (11:51→17:14)
[2022-04-05] MEDS: INSULIN LISPRO 100 UNIT/ML 3ML VIAL SUBCUT ×2 (11:52→17:15)
[2022-04-05] MEDS: ONDANSETRON 4 MG/2 ML INJ IV (13:13)
--- NOTE | 2022-04-05 13:36 | DIET.CONS2 ---
Dietary Inpatient Consultation Note Admission Date: 04/04/2022 15:04 Pt admitted for rectal abscess undergoing treatment for colon/liver cancer. Pt admit BG >500 with A1c >12. Pt had drainage of abscess with open cavity +/- packing. Pt at high risk for slow healing wound and post-surgical complications r/t suboptimal glycemic control. Recc tight glycemic control with BG <180 to support wound healing. Diet: 04/05/22 Lunch General (Regular) Diet Diet Modifications: Nutrition Percent Meal Consumed pt npo/ in surgery 04/05/22 08:00 Percent Meal Consumed pt npo 04/04/22 17:28 Electronically Signed by: Leida Suarez 04/05/22 13:36 Clinical Dietitian [address] [id number]
--- NOTE | 2022-04-05 13:50 | PM.PN.1 ---
Subjective Subjective Date Patient Seen: 04/05/22 Time Patient Seen: 13:50 Interval history: Met with patient and reviewed chart. A total of 65 minutes was spent with patient and discussing with nursing and physicians and evaluating patient and formulating a plan and documentation. Patient had I and D this morning large cavity was evacuated and packed. She is continued to have decreasing bloody serosanguineous drainage. I discussed with surgery and typically they recommend that the gauze be removed at 12:00 p.m. and no antibiotic is recommended unless we feel patient is immunocompromised or not improving or was on outpatient antibiotics with this patient was not. Patient is very frustrated. She is tired of feeling poorly and recognizes how difficult this is for her family as well. She feels her pain is well-controlled with the current pain medications. She last took her Pradaxa yesterday morning. Review of systems: No chest pain or shortness of breath Patient does smoke about 10 cigarettes a day but is doing okay without having access to smoking Patient has intermittent constipation diarrhea Patient was having yeast infections as well but is not having any further symptoms. Patient is very worried about her blood sugars Exam Vital Signs (past 8 hours): - 04/05/22 08:00 04/05/22 08:00 04/05/22 10:18 Temperature 98.0 F 99.7 F H 97.2 F L Pulse Rate 78 70 72 Respiratory Rate 17 16 24 Blood Pressure 111/67 111/70 95/62 Pulse Oximetry 98 98 96 Oxygen Delivery Method Room Air Room Air Oxygen Flow Rate 0 04/05/22 10:24 04/05/22 10:29 04/05/22 10:36 Temperature Pulse Rate 72 73 69 Respiratory Rate 19 14 22 Blood Pressure 92/62 109/73 110/75 Pulse Oximetry 96 98 98 Oxygen Delivery Method Room Air Room Air Oxygen Flow Rate 04/05/22 11:27 04/05/22 11:57 Temperature Pulse Rate 69 69 Respiratory Rate Blood Pressure 117/76 117/76 Pulse Oximetry Oxygen Delivery Method Oxygen Flow Rate Oxygen Delivery Method Room Air Oxygen Flow Rate 0 Narrative Exam Narrative: Afebrile vital signs are stable Patient is alert and oriented x3. Appears pale. HEENT shows mucous membranes moist and pink Neck is supple without adenopathy or thyromegaly Chest: Clear to auscultation without wheezes rhonchi or crackles Cor: Regular rate and rhythm Abdomen: Positive bowel sounds Extremities: No edema Objective Labs 04/05/22 05:53 04/05/22 05:53 Labs: Laboratory Results - last 24 hr 04/04/22 04/04/22 04/05/22 12:28 15:19 05:53 WBC 9.0 RBC 3.24 L Hgb 9.8 L Hct 29.2 L MCV 90.1 MCH 30.1 MCHC 33.4 RDW 15.1 H Plt Count 248 Neut % (Auto) 76.0 H Lymph % (Auto) 12.[address] [facility] % (Auto) 9.8 Eos % (Auto) 0.9 L Baso % (Auto) 0.5 Neut # (Auto) 6800 Lymph # (Auto) 1100 [facility] # (Auto) 900 Eos # (Auto) 100 Baso # (Auto) 0 Sodium Potassium Chloride Carbon Dioxide BUN Creatinine Estimated GFR BUN/Creatinine Ratio Glucose Calcium Total Bilirubin AST ALT Alkaline Phosphatase Total Protein Albumin Globulin Albumin/Globulin Ratio Urine RBC None seen Urine WBC None seen Ur Squamous Epith Cells 1-5 /hpf Urine Bacteria None seen Ur Culture Indicated? Cult not indicated SARS-CoV-2 (PCR) Negative 04/05/22 05:53 WBC RBC Hgb Hct MCV MCH MCHC RDW Plt Count Neut % (Auto) Lymph % (Auto) [facility] % (Auto) Eos % (Auto) Baso % (Auto) Neut # (Auto) Lymph # (Auto) [facility] # (Auto) Eos # (Auto) Baso # (Auto) Sodium 132 L Potassium 4.1 Chloride 103 Carbon Dioxide 22 BUN 11 Creatinine 0.48 L Estimated GFR > 60 BUN/Creatinine Ratio 22.9 H Glucose 183 H D Calcium 7.9 L Total Bilirubin 2.0 H AST 66 H ALT 44 H Alkaline Phosphatase 394 H Total Protein 6.3 Albumin 2.7 L Globulin 3.6 Albumin/Globulin Ratio 0.8 L Urine RBC Urine WBC Ur Squamous Epith Cells Urine Bacteria Ur Culture Indicated? SARS-CoV-2 (PCR) [facility] Medical History Diabetes type 2, controlled Tinea cruris Social History household members: spouse Smoking Status: Current every day smoker alcohol intake: current Assessment & Plan Assessment & Plan narrative: Assessment & Plan narrative: Assessment 1. #groin/perirectal abscess Patient was taken to the OR today. She is feeling much relief in her pain since she had surgery. Discussed with Dr. Herrera. The plan is to remove the packing 24 hours after his placed. and she will ask Dr. Munoz who will be on-call tomorrow to do this. Then she recommended doing Sitz baths 3 times a day to treat. At this point she did not feel that further antibiotics was warranted. We will watch closely and monitor CBC as well for fever increased pain. Assessment 2. Adenocarcinoma of unclear etiology. This was proven from a liver biopsy. Reviewing the CT scan of the abdomen pelvis and chest that was done yesterday in the ER I question whether patient needs evaluation of her sigmoid colon due to the thickening in the sigmoid colon. Patient had a colonoscopy 2 years ago at [facility] she states in the were no abnormalities. 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 Patient was due for her oncology appointment with Dr. Yarbrough yesterday but unfortunately could not make it. She also needs a PET scan and is worried about her blood sugars and needs to get these down before she can have her PET scan. # assessment 3. Diabetes mellitus, non-insulin dependent on admission. Patient with marked worsening in her diabetes likely related to infection and ongoing malignancy. She is on her outpatient medications metformin and glipizide and blood sugars are coming down with insulin. She is handling a very aggressive insulin regimen at this time. #hyperglycemia, acute, present on admission clearly she has outstripped the capacity of her oral meds to manage she reports she was told to stop metformin and start glyburide per note from Dr. Ag she was to add glyburide to existing metformin regimen will need aggressive BG management for wound healing # assessment 4. HLD stable continue home statin # assessment 5. Muscle spasms stable continue home diazepam Assessment 6. Hypertension Plan: Continue outpatient medications. Assessment 7. Atrial fibrillation, paroxysmal on anticoagulation with Pradaxa. Last dose was yesterday a.m. Plan: Patient with no AFib currently. Continue with metoprolol 100 mg twice daily. We will hold Pradaxa until okay by surgery. Likely start tomorrow. Time Spent With Patient Critical Care time: I spent a total of [] minutes of critical care time on this patient's care today; this time is exclusive of procedural time. Quality VTE Deep Vein Thrombosis/Pulmonary Embolism Present on Admission: No
--- NOTE | 2022-04-05 14:01 | CM.DANOTE ---
Initial DCP Assessment Note Pt is a 61 yo female, resident of [place], recent dx of liver cancer s/p biopsy, with poorly controlled diabetes, presents with diana rectal pain, perirectal abscess found and patient went to the OR this morning for I+D by Dr Rhoades Per note from Dr Rhoades: Large abscess cavity perirectal abscess- ishiorectal location. Size of opening is 5 cm x 3cm elipse. Cavity underneath tracks about 8 cm anteriorly and 10 posteriorly it is approximately 10 cm in width. Per review of chart at 1400- Dr Rhoades recommending HH RN to assist with wound care PCP: Kilo Ag Payer: [facility] Met w/patient this morning to introduce self and role. Patient says she is indp at baseline but has been feeling much weaker since cancer dx. Patient disappointed that she was unable to make her oncology appt today because she is eager to begin chemo treatment for recently dx liver cancer. Patient/spouse have three adult children, two live in [place] Patient denies needs from CM team at this time, plans to return home upon DC w/family to support. Plan: DC home w/family expected, likely with HH RN to assist with wound care per surgeon's recommendation Need to discuss HH options w/patient, if agreeable to this, HH referral needed PARAG Bland Discharge Planning/Care Management Discharge Assessment Start: 04/05/22 13:57 Freq: Status: Active Protocol: Document 04/05/22 13:57 KAVON (Rec: 04/05/22 14:01 KAVON [id number]) Discharge Planning Assessment Assigned Solar Site Assessment Specialist PARAG Hernandes DPOA/Assigned Designee Name Indio Mendoza, spouse Contact Information [phone] Advance Directives? No History Provided By Patient,Medical Record Prior Living Arrangements House Household Members spouse Type of transporation used prior to Relies on Others admit Independent with ADL's Yes Is patient alert and oriented? Yes Needs Assistance With Meal Prep,Managing Medications ,Home Chores / Shopping Comment Ambulates indp., has been feeling weak recently w/dx of lung CA, DKA, other co-morbs Patient/Family Preference OP PT Therapy Barriers to Discharge No Comment Expect home w/spouse and close outpatient f/u Discharge Plan Home Transportation Arrangement Family Referrals Initiated None needed Additional Comment Patient denies need for HH at this time Whiteboard Updated in Patient Room with Yes name and ext. # of Solar Site Assessment Specialist
[2022-04-05] MEDS: HYDROMORPHONE 4 MG TABLET PO ×3 (14:04→23:45)
[2022-04-05] MEDS: SPIRONOLACTONE 25 MG TABLET PO (21:20)
[2022-04-05] MEDS: INSULIN GLARGINE 100 UNIT/ML 3ML PEN 30 UNIT SUBCUT (21:24)
[2022-04-06] VITALS (10 sets, daily range): BP systolic 102–125; BP diastolic 63–71; PULSE 66–87; RESP 16–18; TEMP 36.2–37.5; O2SAT 94–100
[2022-04-06] MEDS: PANTOPRAZOLE DR 40 MG TABLET PO (06:01)
[2022-04-06] MEDS: ONDANSETRON 4 MG ODT PO ×4 (06:01→23:26)
[2022-04-06 06:02] LABS: Add Manual Diff / Slide Review NO; Basophils Absolute Auto 0 /uL (0-100); Basophils Percent Auto 0.4 % (0-2); Eosinophils Absolute Auto 100 /uL (0-450); Eosinophils Percent Auto 0.7 % (2-4); Hematocrit 28.8 % (36-46); Hemoglobin 9.4 g/dL (12.0-16.0); Lymphocytes Absolute Auto 1200 /uL (1100-4500); Lymphocytes Percent Auto 13.5 % (25-40); Mean Corpuscular HGB Conc 32.6 % (30-36); Mean Corpuscular Hemoglobin 29.7 PG (26-34); Monocytes Absolute Auto 800 /uL (0-900); Monocytes Percent Auto 8.8 % (3-14); Neutrophils Absolute Auto 7000 /uL (1500-7000); Neutrophils Percent Auto 76.6 % (50-75); Platelet Count 249 X10^3/uL (150-400); Red Blood Cell Count 3.16 X10^6/uL (4.0-5.2); Red Cell Distribution Width 15.2 % (11.6-14.8); White Blood Cell Count 9.1 X10^3/uL (4.5-11.0)
[2022-04-06] MEDS: ACETAMINOPHEN 325 MG TABLET 650 MG PO ×3 (06:03→18:18)
[2022-04-06 06:25] LABS: Alanine Aminotransferase 49 IU/L (<35); Albumin 2.7 g/dL (3.5-5.0); Albumin Globulin Ratio 0.8 (1.0-2.8); Alkaline Phosphatase 477 U/L (38-126); Aspartate Aminotransferase 100 IU/L (14-36); BUN Creatinine Ratio 19.6 (6-22); Bilirubin Total 1.6 mg/dL (0.2-1.3); Blood Urea Nitrogen 11 mg/dL (7-17); Calcium 8.1 mg/dL (8.4-10.2); Carbon Dioxide 21 mmol/L (22-32); Chloride 103 mmol/L (98-107); Estimated Glomerular Filt Rate > 60 mL/min (>60); Globulin 3.5 g/dL (1.7-4.1); Glucose 200 mg/dL (70-100); HEMOLYSIS < 15 (0-50); Potassium 4.1 mmol/L (3.4-5.1); Sodium 133 mmol/L (137-145); Total Protein 6.2 g/dL (6.3-8.2)
[2022-04-06] MEDS: CHOLECALCIFEROL (VITAMIN D3) 1,000 UNIT TABLET 2000 UNIT PO (08:19)
[2022-04-06] MEDS: glyBURIDE 2.5 MG TABLET 10 MG PO ×2 (08:19→17:08)
[2022-04-06] MEDS: SUCRALFATE 1 GM TABLET PO ×3 (08:19→17:08)
[2022-04-06] MEDS: SODIUM CHLORIDE 0.9% FLUSH 10 ML IV ×2 (08:19→21:47)
[2022-04-06] MEDS: METOPROLOL ER 50 MG TABLET 100 MG PO (08:19)
[2022-04-06] MEDS: SPIRONOLACTONE 25 MG TABLET PO (08:19)
[2022-04-06] MEDS: ATORVASTATIN 20 MG TABLET 10 MG PO (08:20)
[2022-04-06] MEDS: INSULIN LISPRO 100 UNIT/ML 3ML VIAL 10 UNIT SUBCUT (08:25)
[2022-04-06] MEDS: INSULIN LISPRO 100 UNIT/ML 3ML VIAL SUBCUT ×2 (08:26→17:09)
[2022-04-06] MEDS: LOSARTAN 50 MG TABLET 100 MG PO (08:32)
[2022-04-06] MEDS: METFORMIN XR 500 MG TABLET 1000 MG PO ×2 (08:38→17:14)
--- NOTE | 2022-04-06 10:23 | P.PN_ITS ---
Subjective Subjective Date Patient Seen: 04/06/22 Time Patient Seen: 10:00 Interval history: Viviane Mendoza is a 61 year old female patient with history of recently diagnosed hepatic cancer with unknown origin and a perineal abscess. Patient was in the OR yesterday for evacuation of the perineal abscess. She feels better today after the surgery. She is frustrated with her medical status but is understanding. She feels like she needs to be supported more with IV fluids. She feels exhausted and states that even going to the bathroom is tiring. Surgery team do not recommend antibiotic for her at this time as her lesion continues to heal and she has no elevations in her WBC. She reports epigastric pain with no radiation to the back. Exam Vital Signs (past 8 hours): - 04/06/22 04:00 04/06/22 07:00 04/06/22 08:19 Temperature 98.3 F 97.7 F Pulse Rate 70 66 Respiratory Rate 16 17 Blood Pressure 109/70 114/70 Pulse Oximetry 96 98 Oxygen Delivery Method Room Air Oxygen Flow Rate 0 0 Oxygen Delivery Method Room Air Oxygen Flow Rate 0 Const General: comfortable and ill appearing Nutritional Appearance: well nourished Chest Chest: normal inspection of the chest Resp Effort & Inspection: normal respiratory effort Auscultation: clear to auscultation bilaterally Cardio Rate: regular rate Rhythm: regular rhythm Heart Sounds: S1 normal and S2 normal GI Inspection: normal to inspection Palpation: hepatomegaly and No ascites Auscultation: normal bowel sounds Objective Labs 04/06/22 05:52 04/06/22 05:52 Labs: Laboratory Results - last 24 hr 04/06/22 04/06/22 05:52 05:52 WBC 9.1 RBC 3.16 L Hgb 9.4 L Hct 28.8 L MCV 91.0 MCH 29.7 MCHC 32.6 RDW 15.2 H Plt Count 249 Neut % (Auto) 76.6 H Lymph % (Auto) 13.5 L [place] % (Auto) 8.8 Eos % (Auto) 0.7 L Baso % (Auto) 0.4 Neut # (Auto) 7000 Lymph # (Auto) 1200 [place] # (Auto) 800 Eos # (Auto) 100 Baso # (Auto) 0 Sodium 133 L Potassium 4.1 Chloride 103 Carbon Dioxide 21 L BUN 11 Creatinine 0.56 Estimated GFR > 60 BUN/Creatinine Ratio 19.6 Glucose 200 H Calcium 8.1 L Total Bilirubin 1.6 H AST 100 H ALT 49 H Alkaline Phosphatase 477 H Total Protein 6.2 L Albumin 2.7 L Globulin 3.5 Albumin/Globulin Ratio 0.8 L [facility] Medical History Diabetes type 2, controlled Tinea cruris Social History household members: spouse Smoking Status: Current every day smoker alcohol intake: current Assessment & Plan Assessment and plan (1) Perirectal abscess: Status: Acute (2) Hyperglycemia: Status: Acute (3) Cellulitis and abscess of buttock: Status: Acute (4) Cancer of liver: Qualifiers: Liver malignancy type: unspecified liver malignancy Qualified Code(s): C22.9 - Malignant neoplasm of liver, not specified as primary or secondary Status: Acute (5) Cholelithiasis: Qualifiers: Cholelithiasis location: gallbladder Cholecystitis presence: without cholecystitis Biliary obstruction: without biliary obstruction Qualified Code(s): K80.20 - Calculus of gallbladder without cholecystitis without obstruction Status: Acute (6) Abdominal pain: Qualifiers: Abdominal location: right upper quadrant Qualified Code(s): R10.11 - Right upper quadrant pain Status: Acute Plan Assessment 1. #groin/perirectal abscess Patient was taken to the OR yesterday.? She is feeling much relief in her pain since she had surgery.? Discussed with Dr. Barreto.? The plan is to remove the packing 24 hours after his placed, plan is for Dr. Munoz to do this around noon today. She recommended doing Sitz baths 3 times a day to treat moving forward.? At this point she did not feel that further antibiotics was warranted.? We will watch closely and monitor CBC as well for fever increased pain. Her WBC continues to be within normal limits today/ Assessment 2.? Adenocarcinoma of unclear etiology.? This was proven from a liver biopsy.? Reviewing the CT scan of the abdomen pelvis and chest that was done in the ER. I question whether patient needs evaluation of her sigmoid colon due to the thickening in the sigmoid colon.? Patient had a colonoscopy 2 years ago at [facility] she states in the were no abnormalities.? 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 Patient was due for her oncology appointment with Dr. Yarbrough on Mond[place] this week but unfortunately could not make it.? She also needs a PET scan and is worried about her blood sugars and needs to get these down before she can have her PET scan. It continues to improve and was at 200 this morning. # assessment 3.? Diabetes mellitus, non-insulin dependent on admission.? Patient with marked worsening in her diabetes likely related to infection and ongoing malignancy.? She is on her outpatient medications metformin and glipizide and blood sugars are coming down with insulin.? She is handling a very aggressive insulin regimen at this time. #hyperglycemia, acute, present on admission clearly she has outstripped the capacity of her oral meds to manage she reports she was told to stop metformin and start glyburide per note from Dr. Ag she was to add glyburide to existing metformin regimen will need aggressive BG management for wound healing. Blood glucose at 200 this morning. Will increase lantus at night. Continue to monitor. # assessment 4.? HLD stable continue home statin # assessment 5.? Muscle spasms stable continue home diazepam Assessment 6. Hypertension Plan: Continue outpatient medications. Assessment 7. Atrial fibrillation, paroxysmal on anticoagulation with Pradaxa.? Last dose was yesterday a.m. Plan:? Patient with no AFib currently.? Continue with metoprolol 100 mg twice daily.? We will hold Pradaxa until okay by surgery. Assessment & Plan narrative: Assessment 1. #groin/perirectal abscess Patient was taken to the OR yesterday.? She is feeling much relief in her pain since she had surgery.? Discussed with Dr. Barreto.? The plan is to remove the packing 24 hours after his placed, plan is for Dr. Munoz to do this around noon today. She recommended doing Sitz baths 3 times a day to treat moving forward.? At this point she did not feel that further antibiotics was warranted.? We will watch closely and monitor CBC as well for fever increased pain. Her WBC continues to be within normal limits today/ Assessment 2.? Adenocarcinoma of unclear etiology.? This was proven from a liver biopsy.? Reviewing the CT scan of the abdomen pelvis and chest that was done in the ER. I question whether patient needs evaluation of her sigmoid colon due to the thickening in the sigmoid colon.? Patient had a colonoscopy 2 years ago at [facility] she states in the were no abnormalities.? 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 Patient was due for her oncology appointment with Dr. Yarbrough on Mond[place] this week but unfortunately could not make it.? She also needs a PET scan and is worried about her blood sugars and needs to get these down before she can have her PET scan. It continues to improve and was at 200 this morning. # assessment 3.? Diabetes mellitus, non-insulin dependent on admission.? Patient with marked worsening in her diabetes likely related to infection and ongoing malignancy.? She is on her outpatient medications metformin and glipizide and blood sugars are coming down with insulin.? She is handling a very aggressive insulin regimen at this time. #hyperglycemia, acute, present on admission clearly she has outstripped the capacity of her oral meds to manage she reports she was told to stop metformin and start glyburide per note from Dr. Ag she was to add glyburide to existing metformin regimen will need aggressive BG management for wound healing. Blood glucose at 200 this morning. Will increase lantus at night. Continue to monitor. # assessment 4.? HLD stable continue home statin # assessment 5.? Muscle spasms stable continue home diazepam Assessment 6. Hypertension Plan: Continue outpatient medications. Assessment 7. Atrial fibrillation, paroxysmal on anticoagulation with Pradaxa.? Last dose was yesterday a.m. Plan:? Patient with no AFib currently.? Continue with metoprolol 100 mg twice daily.? We will hold Pradaxa until okay by surgery. Time Spent With Patient Critical Care time: I spent a total of [] minutes of critical care time on this patient's care today; this time is exclusive of procedural time. Quality VTE Deep Vein Thrombosis/Pulmonary Embolism Present on Admission: No
--- NOTE | 2022-04-06 10:55 | CM.DPC ---
DCP Cont: Per Dr. Ceja, just rounded on pt and would recommend HH for at least RN for groin wound care and pt not ready for d/c today as plan is now prep for colonoscopy. SW met bedside with pt and explained role and explained HH services and frequency and pt confirms she has no hx of HH. Pt states she has her spouse and 2 Dtrs available for assist at d/c and she feels that HH would be more stressful for me at this time and I'd prefer my family get teaching on wound care instead. Pt states her family is very capable and she would prefer to avoid HH if possible and agreeable to think about HH services and see if her family feels confident in wound care tomorrow once packing removed today. Pt states she already pays one of her Dtrs to complete housekeeping as currently having strangers in her home is stressful for her and also with their 3 big dogs. Surgeon recommendation is to remove packing and for pt to have 3 sitz baths a day with dressings and console assembler to complete teaching regarding her AIC scores and optimal healing for her wound. Plan: SW to follow tomorrow after colonoscopy and wound care to confirm family and pt feel comfortable with dressing changes (plan is no more packing) and that pt still declines HH RN at d/c and any further identified discharge planning needs. PARAG Ortiz
--- NOTE | 2022-04-06 11:08 | PC.NURSE ---
had to give patient 14 units of insulin for BG of 211, rechecked her BG after 1hr and it was 178.
[2022-04-06] MEDS: HYDROMORPHONE 1 MG INJ IV ×2 (11:36→23:26)
--- NOTE | 2022-04-06 12:59 | PM.PN.1 ---
Subjective Subjective Date Patient Seen: 04/06/22 Time Patient Seen: 12:59 Interval history: Complains of perirectal pain. She had breakfast this morning. Exam Vital Signs (past 8 hours): - 04/06/22 07:00 04/06/22 08:19 04/06/22 09:19 Temperature 97.7 F Pulse Rate 66 70 Respiratory Rate 17 Blood Pressure 114/70 Pulse Oximetry 98 Oxygen Delivery Method Room Air Oxygen Flow Rate 0 04/06/22 11:46 04/06/22 11:00 Temperature 99.5 F 99.5 F Pulse Rate 79 Respiratory Rate 17 Blood Pressure 109/71 Pulse Oximetry 96 Oxygen Delivery Method Oxygen Flow Rate 0 Oxygen Delivery Method Room Air Oxygen Flow Rate 0 Narrative Exam Narrative: Packing is removed from the perirectal incision. No residual purulent drainage is seen Objective Labs 04/06/22 05:52 04/06/22 05:52 Labs: Laboratory Results - last 24 hr 04/06/22 04/06/22 05:52 05:52 WBC 9.1 RBC 3.16 L Hgb 9.4 L Hct 28.8 L MCV 91.0 MCH 29.7 MCHC 32.6 RDW 15.2 H Plt Count 249 Neut % (Auto) 76.6 H Lymph % (Auto) 13.5 L [place] % (Auto) 8.8 Eos % (Auto) 0.7 L Baso % (Auto) 0.4 Neut # (Auto) 7000 Lymph # (Auto) 1200 [place] # (Auto) 800 Eos # (Auto) 100 Baso # (Auto) 0 Sodium 133 L Potassium 4.1 Chloride 103 Carbon Dioxide 21 L BUN 11 Creatinine 0.56 Estimated GFR > 60 BUN/Creatinine Ratio 19.6 Glucose 200 H Calcium 8.1 L Total Bilirubin 1.6 H AST 100 H ALT 49 H Alkaline Phosphatase 477 H Total Protein 6.2 L Albumin 2.7 L Globulin 3.5 Albumin/Globulin Ratio 0.8 L PFSH Medical History Diabetes type 2, controlled Tinea cruris Social History household members: spouse Smoking Status: Current every day smoker alcohol intake: current Assessment & Plan Assessment and plan (1) Perirectal abscess: Status: Acute Plan Doing well following incision and drainage Packing has been removed. Recommend daily Sitz baths and covering the wound with an absorbent gauze Because the CT scan yesterday showed a more convincing abnormality of the sigmoid colon we will proceed with a colonoscopy tomorrow. She will start clear liquids and the prep today. Time Spent With Patient Critical Care time: I spent a total of [] minutes of critical care time on this patient's care today; this time is exclusive of procedural time. Quality VTE Deep Vein Thrombosis/Pulmonary Embolism Present on Admission: No
--- NOTE | 2022-04-06 14:32 | PT-IP ANOTE ---
PT eval order received. Reviewed EMR. Talked with nurse and stated that pt is modified independent with mobility without AD. Talked to pt regarding mobility and stated that she is steady moving around on her own except when she has her dilaudid and that make her a little dizzy but stated that she can manage on her own. asked pt if she is willing to use an AD if she needs to when she is feeling off due to meds and stated that she does not need one and she will be fine. encouraged pt to mobilize by herself as much as possible and pt agreed. informed nurse and NAC to ambulate pt as much as possible. pt agreed that she does not need PT intervention. Called Dr. Ceja to inform about PT eval order d/c and that pt is independent with mobility per nurse. Doctor agreed.
[2022-04-06] MEDS: PEG3350/SOD SULF,BICARB,CL/KCL 4,000 ML SOLUTION 4000 ML PO (17:08)
[2022-04-06] MEDS: INSULIN GLARGINE 100 UNIT/ML 3ML PEN 40 UNIT SUBCUT (21:48)
[2022-04-07] VITALS (12 sets, daily range): BP systolic 94–118; BP diastolic 56–74; PULSE 64–98; RESP 16–20; TEMP 35.8–36.9; O2SAT 96–100; BMI 24.5
[2022-04-07] MEDS: ONDANSETRON 4 MG ODT PO ×2 (06:14→17:11)
[2022-04-07] MEDS: PANTOPRAZOLE DR 40 MG TABLET PO ×2 (06:14→21:27)
[2022-04-07 06:24] LABS: Add Manual Diff / Slide Review NO; Basophils Absolute Auto 0 /uL (0-100); Basophils Percent Auto 0.6 % (0-2); Eosinophils Absolute Auto 100 /uL (0-450); Eosinophils Percent Auto 0.6 % (2-4); Hematocrit 29.2 % (36-46); Hemoglobin 9.8 g/dL (12.0-16.0); Lymphocytes Absolute Auto 1300 /uL (1100-4500); Lymphocytes Percent Auto 15.1 % (25-40); Mean Corpuscular HGB Conc 33.5 % (30-36); Mean Corpuscular Hemoglobin 29.7 PG (26-34); Mean Corpuscular Volume 88.8 fL (80-100); Monocytes Absolute Auto 600 /uL (0-900); Monocytes Percent Auto 7.4 % (3-14); Neutrophils Absolute Auto 6400 /uL (1500-7000); Neutrophils Percent Auto 76.3 % (50-75); Platelet Count 271 X10^3/uL (150-400); Red Blood Cell Count 3.28 X10^6/uL (4.0-5.2); Red Cell Distribution Width 15.2 % (11.6-14.8); White Blood Cell Count 8.4 X10^3/uL (4.5-11.0)
[2022-04-07 06:36] LABS: Alanine Aminotransferase 50 IU/L (<35); Albumin 2.8 g/dL (3.5-5.0); Albumin Globulin Ratio 0.8 (1.0-2.8); Alkaline Phosphatase 501 U/L (38-126); Aspartate Aminotransferase 89 IU/L (14-36); BUN Creatinine Ratio 14.6 (6-22); Bilirubin Total 1.9 mg/dL (0.2-1.3); Blood Urea Nitrogen 7 mg/dL (7-17); Calcium 8.4 mg/dL (8.4-10.2); Carbon Dioxide 23 mmol/L (22-32); Chloride 101 mmol/L (98-107); Estimated Glomerular Filt Rate > 60 mL/min (>60); Globulin 3.6 g/dL (1.7-4.1); Glucose 116 mg/dL (70-100); HEMOLYSIS < 15 (0-50); Potassium 3.7 mmol/L (3.4-5.1); Sodium 134 mmol/L (137-145); Total Protein 6.4 g/dL (6.3-8.2)
--- NOTE | 2022-04-07 07:03 | PC.NURSE ---
Patient has been NPO since midnight for colonoscopy. Patient completed colonoscopy prep, BMs now dark yellow with some flecks of brown stool.
[2022-04-07] MEDS: HYDROMORPHONE 1 MG INJ IV (08:23)
--- NOTE | 2022-04-07 08:29 | P.PN_ITS ---
Subjective Subjective Date Patient Seen: 04/07/22 Time Patient Seen: 08:29 Interval history: Patient had unremarkable night last night. She did the prep. She is co mplaining of increased swelling and pain at the area of her abscess. She attributes this to being on the toilet all night last night due to the prep. She still just has diffuse upper abdominal pain right central and left. Otherwise no change. No shortness of breath or chest pain. She is having some lower extremity edema Twelve point review of systems otherwise unremarkable Exam Vital Signs (past 8 hours): - 04/07/22 02:19 04/07/22 06:20 Temperature 96.7 F L 97.4 F L Pulse Rate 70 68 Respiratory Rate 16 16 Blood Pressure 101/62 118/69 Pulse Oximetry 96 97 Oxygen Flow Rate 0 0 Oxygen Delivery Method Room Air Oxygen Flow Rate 0 Narrative Exam Narrative: Afebrile vital signs are stable HEENT shows partially dry mucous membranes Neck: Supple Chest: Clear to auscultation Cor: Regular rate and rhythm without a murmur. No ectopy. Abdominal exam unchanged. Hepato megaly with tenderness along liver edge. No obvious ascites. No guarding or rebound. Positive bowel sounds x4 Extremities: Slight edema Neurologic exam nonfocal Right perineal abscess/buttocks with some mild erythema around it and tenderness to palpation but no drainage or bleeding Objective Labs 04/07/22 06:08 04/07/22 06:08 Labs: Laboratory Results - last 24 hr 04/07/22 04/07/22 06:08 06:08 WBC 8.4 RBC 3.28 L Hgb 9.8 L Hct 29.2 L MCV 88.8 MCH 29.7 MCHC 33.5 RDW 15.2 H Plt Count 271 Neut % (Auto) 76.3 H Lymph % (Auto) 15.1 L [place] % (Auto) 7.4 Eos % (Auto) 0.6 L Baso % (Auto) 0.6 Neut # (Auto) 6400 Lymph # (Auto) 1300 [place] # (Auto) 600 Eos # (Auto) 100 Baso # (Auto) 0 Sodium 134 L Potassium 3.7 Chloride 101 Carbon Dioxide 23 BUN 7 Creatinine 0.48 L Estimated GFR > 60 BUN/Creatinine Ratio 14.6 Glucose 116 H Calcium 8.4 Total Bilirubin 1.9 H AST 89 H ALT 50 H Alkaline Phosphatase 501 H Total Protein 6.4 Albumin 2.8 L Globulin 3.6 Albumin/Globulin Ratio 0.8 L FOR[facility]LY [facility], [facility] Medical History Diabetes type 2, controlled Tinea cruris Social History household members: spouse Smoking Status: Current every day smoker alcohol intake: current Assessment & Plan Assessment & Plan narrative: Assessment 1. #groin/perirectal abscess. Patient has continued to improve. Dr. Munoz took out the packing yesterday and clinically patient's symptoms are improved. She still having bloody discharge but no purulent discharge and continues off antibiotics with a normal WBC. I think given the location as well as the appearance today (this is a 1st day I have visualized it (that likely we should start antibiotics ? Then she recommended doing Sitz baths 3 times a day to treat.? At this point she did not feel that further antibiotics was warranted.? We will watch closely and monitor CBC as well for fever increased pain. Assessment 2.? Adenocarcinoma of unclear etiology.? This was proven from a liver biopsy.? Reviewing the CT scan of the abdomen pelvis and chest that was done yesterday in the ER I question whether patient needs evaluation of her sigmoid colon due to the thickening in the sigmoid colon.? Patient had a colonoscopy 2 years ago at [facility] she states in the were no abnormalities.? 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 Patient is doing a prep for colonoscopy today. She needed inpatient prep due to her debilitated state and need for IV fluid support. # assessment 3.? Diabetes mellitus, non-insulin dependent on admission.? Patient with marked worsening in her diabetes likely related to infection and ongoing malignancy.? She is on her outpatient medications metformin and glipizide and blood sugars are coming down with insulin.? She is handling a very aggressive insulin regimen at this time. We increased the Lantus last night and hopefully this will hold her. Will likely have to make adjustments when she starts eating again as she is NPO for prep. Will do diabetic teaching because patient will be going home on insulin. # assessment 4.? HLD stable continue home statin # assessment 5.? Muscle spasms stable continue home diazepam Assessment 6. Hypertension Plan: Continue outpatient medications. Assessment 7. Atrial fibrillation, paroxysmal on anticoagulation with Pradaxa.? Last dose was yesterday a.m. Plan:? Patient with no AFib currently.? Continue with metoprolol 100 mg twice daily.? We will hold Pradaxa until okay by surgery.? Will plan to start today after colonoscopy if okay by surgery Time Spent With Patient Critical Care time: I spent a total of [] minutes of critical care time on this patient's care today; this time is exclusive of procedural time. 45 minute spent with patient today discussing with nursing, physicians, reviewing chart, formulating a plan and documentation Time Spent With Patient Critical Care time: I spent a total of [] minutes of critical care time on this patient's care today; this time is exclusive of procedural time. Quality VTE Deep Vein Thrombosis/Pulmonary Embolism Present on Admission: No
[2022-04-07] MEDS: ATORVASTATIN 20 MG TABLET 10 MG PO (08:30)
[2022-04-07] MEDS: CHOLECALCIFEROL (VITAMIN D3) 1,000 UNIT TABLET 2000 UNIT PO (08:31)
[2022-04-07] MEDS: SUCRALFATE 1 GM TABLET PO ×4 (08:38→21:14)
[2022-04-07] MEDS: SPIRONOLACTONE 25 MG TABLET PO ×2 (08:38→21:15)
[2022-04-07] MEDS: SODIUM CHLORIDE 0.9% FLUSH 10 ML IV ×2 (08:40→21:19)
[2022-04-07] MEDS: LOSARTAN 50 MG TABLET 100 MG PO (08:41)
[2022-04-07] MEDS: METOPROLOL ER 50 MG TABLET 100 MG PO (08:43)
[2022-04-07] MEDS: SODIUM CHLORIDE 0.9% 1,000 ML 150 ML IV (09:19)
[2022-04-07] MEDS: METFORMIN XR 500 MG TABLET 1000 MG PO ×2 (09:26→17:04)
--- NOTE | 2022-04-07 11:01 | PC.NURSE ---
Day shift note: Off floor to Colonoscopy with Carloz DEMPSEY via .
--- NOTE | 2022-04-07 12:06 | P.OP.COLON_ITS ---
Operative Date/Time/Diagnoses Date of procedure: 04/07/22 Time of procedure: 12:06 Pre-op diagnosis: Abnormal imaging of the colon Post-op diagnosis: same Procedure & Clinicians Study performed: Colonoscopy Same procedure as scheduled: Yes Surgeon: Liban Munoz Procedure Notes Procedure in detail: Surgeon: Liban Munoz MD Anesthesia: Dr. Gonzalez Procedure: The patient was brought to the endoscopy suite, placed in left lateral decubitus position. The patient was connected to monitoring devices. A time-out was performed. Sedation was administered. Once the patient was adequately sedated, a digital rectal exam was performed and was normal. The scope was then inserted and advanced to the cecum where the appendiceal orifice was identified and photographed. The scope was then slowly withdrawn over greater than 6 minutes. The mucosa was thoroughly inspected. The prep was sub optimal but was able to be suctioned and irrigated enough to visualize the colon well enough to exclude a large mass. No polyps or masses were seen. The sigmoid colon was traversed twice with relatively good visibility and no abnormalities were seen. The scope was retroflexed in the rectum. No other abnormalities were seen. The scope was straightened and removed. The patient was awakened and brought to recovery. Scope withdrawal time: 12 minutes Sedation time: 21 minutes EBL: 0 Findings: Normal colon Post-procedure Disposition: PACU
--- NOTE | 2022-04-07 12:22 | SUR.PHASEI ---
Report called to Bella. Patient transferred to the floor by Vijaya.
[2022-04-07] MEDS: HYDROMORPHONE 4 MG TABLET PO ×3 (12:45→21:13)
--- NOTE | 2022-04-07 15:41 | DIET.CONS2 ---
Dietary Inpatient Consultation Note Admission Date: 04/04/2022 15:04 Pt with adequate PO intake since nutrition intervention, 75-100% meal trays. Pt glucose control much improved, currently 97. Diet: 04/07/22 Dinner Regular [General (Regular) Diet] Diet Modifications: Nutrition Percent Meal Consumed 75% 04/06/22 18:00 Percent Meal Consumed 75% 04/06/22 11:00 Percent Meal Consumed 100% 04/05/22 18:00 Percent Meal Consumed 50% 04/05/22 16:34 Electronically Signed by: Leida Suarez 04/07/22 15:41 Clinical Dietitian [address] [id number]
[2022-04-07] MEDS: glyBURIDE 2.5 MG TABLET 10 MG PO (17:04)
[2022-04-07] MEDS: INSULIN GLARGINE 100 UNIT/ML 3ML PEN 40 UNIT SUBCUT (21:13)
[2022-04-07] MEDS: DABIGATRAN 75 MG CAPSULE 150 MG PO (21:14)
[2022-04-08] VITALS (8 sets, daily range): BP systolic 108–132; BP diastolic 62–74; PULSE 61–72; RESP 16–20; TEMP 36.2–36.8; O2SAT 96–98
[2022-04-08] MEDS: ONDANSETRON 4 MG ODT PO ×4 (05:25→23:43)
[2022-04-08 06:28] LABS: Add Manual Diff / Slide Review NO; Basophils Absolute Auto 0 /uL (0-100); Basophils Percent Auto 0.4 % (0-2); Eosinophils Absolute Auto 100 /uL (0-450); Eosinophils Percent Auto 0.7 % (2-4); Hematocrit 28.3 % (36-46); Hemoglobin 9.5 g/dL (12.0-16.0); Lymphocytes Absolute Auto 1100 /uL (1100-4500); Lymphocytes Percent Auto 14.9 % (25-40); Mean Corpuscular HGB Conc 33.5 % (30-36); Mean Corpuscular Hemoglobin 29.8 PG (26-34); Mean Corpuscular Volume 88.8 fL (80-100); Monocytes Absolute Auto 800 /uL (0-900); Monocytes Percent Auto 9.9 % (3-14); Neutrophils Absolute Auto 5700 /uL (1500-7000); Neutrophils Percent Auto 74.1 % (50-75); Platelet Count 259 X10^3/uL (150-400); Red Blood Cell Count 3.19 X10^6/uL (4.0-5.2); Red Cell Distribution Width 15.3 % (11.6-14.8); White Blood Cell Count 7.7 X10^3/uL (4.5-11.0)
[2022-04-08 06:35] LABS: Alanine Aminotransferase 42 IU/L (<35); Albumin 2.7 g/dL (3.5-5.0); Albumin Globulin Ratio 0.8 (1.0-2.8); Alkaline Phosphatase 492 U/L (38-126); Aspartate Aminotransferase 75 IU/L (14-36); BUN Creatinine Ratio 8.3 (6-22); Bilirubin Total 1.4 mg/dL (0.2-1.3); Blood Urea Nitrogen 10 mg/dL (7-17); Calcium 8.4 mg/dL (8.4-10.2); Carbon Dioxide 24 mmol/L (22-32); Chloride 105 mmol/L (98-107); Estimated Glomerular Filt Rate 52 mL/min (>60); Globulin 3.4 g/dL (1.7-4.1); Glucose 130 mg/dL (70-100); HEMOLYSIS < 15 (0-50); Potassium 4.2 mmol/L (3.4-5.1); Sodium 135 mmol/L (137-145); Total Protein 6.1 g/dL (6.3-8.2)
[2022-04-08] MEDS: PANTOPRAZOLE DR 40 MG TABLET PO ×2 (06:44→21:48)
[2022-04-08] MEDS: INSULIN LISPRO 100 UNIT/ML 3ML VIAL 10 UNIT SUBCUT (08:24)
[2022-04-08] MEDS: INSULIN LISPRO 100 UNIT/ML 3ML VIAL SUBCUT (08:26)
[2022-04-08] MEDS: CHOLECALCIFEROL (VITAMIN D3) 1,000 UNIT TABLET 2000 UNIT PO (08:29)
[2022-04-08] MEDS: DOCUSATE 100 MG CAPSULE PO ×2 (08:29→21:47)
[2022-04-08] MEDS: METOPROLOL ER 50 MG TABLET 100 MG PO ×2 (08:29→21:47)
[2022-04-08] MEDS: glyBURIDE 2.5 MG TABLET 10 MG PO (08:30)
[2022-04-08] MEDS: IBUPROFEN 600 MG TABLET PO (08:30)
[2022-04-08] MEDS: DABIGATRAN 75 MG CAPSULE 150 MG PO ×2 (08:30→21:47)
[2022-04-08] MEDS: SPIRONOLACTONE 25 MG TABLET PO ×2 (08:30→21:48)
[2022-04-08] MEDS: ATORVASTATIN 20 MG TABLET 10 MG PO (08:30)
[2022-04-08] MEDS: LOSARTAN 50 MG TABLET 100 MG PO (08:30)
[2022-04-08] MEDS: HYDROMORPHONE 4 MG TABLET PO ×4 (08:31→21:48)
[2022-04-08] MEDS: ENOXAPARIN 40 MG/0.4 ML SYRINGE SUBCUT (08:31)
[2022-04-08] MEDS: SUCRALFATE 1 GM TABLET PO ×4 (08:32→21:47)
--- NOTE | 2022-04-08 08:43 | P.PN_ITS ---
Subjective Subjective Date Patient Seen: 04/08/22 Time Patient Seen: 08:43 Interval history: CC: groin pain feeling okay this morning after colonoscopy reports no difficulty urinating or other symptoms besides her abscess site plan to get PET today to guide onco if stable tomorrow may be suitable for discharge Exam Vital Signs (past 8 hours): - 04/08/22 04:13 Temperature 97.8 F Pulse Rate 63 Respiratory Rate 16 Blood Pressure 121/70 Pulse Oximetry 98 Oxygen Flow Rate 0 Oxygen Delivery Method Room Air Oxygen Flow Rate 0 Narrative Exam Narrative: pleasant elder resting in bed Const General: comfortable and well developed HENMT Head: normocephalic Resp Other: clear to auscultation bilaterally Cardio Other: regular rate and rhythm, S1/S2 GI Other: active bowel sounds Other: under dressing minimal drainage Neuro General: patient alert, patient awake and patient oriented x3 Extrem General: full ROM and no pedal edema Psych Speech and Movement: speech and movement normal Objective Labs 04/08/22 06:08 04/08/22 06:08 Labs: Laboratory Results - last 24 hr 04/08/22 04/08/22 06:08 06:08 WBC 7.7 RBC 3.19 L Hgb 9.5 L Hct 28.3 L MCV 88.8 MCH 29.8 MCHC 33.5 RDW 15.3 H Plt Count 259 Neut % (Auto) 74.1 Lymph % (Auto) 14.9 L [place] % (Auto) 9.9 Eos % (Auto) 0.7 L Baso % (Auto) 0.4 Neut # (Auto) 5700 Lymph # (Auto) 1100 [place] # (Auto) 800 Eos # (Auto) 100 Baso # (Auto) 0 Sodium 135 L Potassium 4.2 Chloride 105 Carbon Dioxide 24 BUN 10 Creatinine 1.21 H Estimated GFR 52 L BUN/Creatinine Ratio 8.3 Glucose 130 H Calcium 8.4 Total Bilirubin 1.4 H AST 75 H ALT 42 H Alkaline Phosphatase 492 H Total Protein 6.1 L Albumin 2.7 L Globulin 3.4 Albumin/Globulin Ratio 0.8 L PFSH Medical History Diabetes type 2, controlled Tinea cruris Social History household members: spouse Smoking Status: Current every day smoker alcohol intake: current Assessment & Plan Assessment & Plan narrative: #groin/perirectal abscess.?Patient's symptoms are improved, normal postop dressings,? bloody discharge but no purulent discharge and continues without antibiotics with a normal WBC.? Watch closely and monitor CBC as well for fever increased pain. #acute kidney injury Creatinine bump today without any signs of infection, suspect this is response to colonoscopy sedation perhaps? Will bolus get UA/UCX if things settle down with morning labs ok to monitor #Adenocarcinoma of unclear etiology Per liver biopsy.?CT scan of the abdomen pelvis and chest in ER on admission raised suspicions of her sigmoid colon. Patient had a colonoscopy 2 years ago at [facility] she states in the were no abnormalities.? 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 Now s/p colonoscopy performed yesterday which did not reveal any abnormalities. Planning for PET scan today to guide oncologic plan. #Diabetes mellitus, non-insulin dependent on admission.? Patient with marked worsening in her diabetes likely related to infection and ongoing malignancy.? She is on her outpatient medications metformin and glipizide however requiring insulin to get blood sugars down.? She is handling a very aggressive insulin regimen at this time with 40U lantus.? Will do diabetic teaching because patient will be going home on insulin. #HLD stable continue home statin #Muscle spasms stable continue home diazepam #Hypertension stable continue outpatient medications. #Atrial fibrillation, paroxysmal Resumed anticoagulation on Pradaxa after colonoscopy, no AFib currently.? Continue with metoprolol 100 mg twice daily.? dispo: possibly home tomorrow pending PET outcome code: full PCP: Kimberli sanders:Diabetic Time Spent With Patient Critical Care time: I spent a total of [] minutes of critical care time on this patient's care today; this time is exclusive of procedural time. Quality VTE Deep Vein Thrombosis/Pulmonary Embolism Present on Admission: No
[2022-04-08] MEDS: SODIUM CHLORIDE 0.9% 1,000 ML 1000 ML IV (09:59)
[2022-04-08] MEDS: METFORMIN XR 500 MG TABLET 1000 MG PO (09:59)
--- NOTE | 2022-04-08 10:33 | PC.NURSE ---
Addendum entered by Andressa Wilson R.N. 04/08/22 14:15: Patient ambulated around the loop twice and is now back in bed. Given dilaudid earlier and patient is comfortable. Call light in reach for needs. Addendum entered by Andressa Wilson R.N. 04/08/22 13:21: Patients blood sugar 87. Patient ate lunch and blood sugar up to 90s. She does not want to take her 10u of insulin at this time. We will recheck this at 1645. Patient wants to ambulate in the halls. Just given pain medication for pain of 5/10 to her bottom. This has been effective for pain control. Original Note: Assess- Patient is alert and oriented x3. She states that her pain to her diana recal abcess is a 5/10. Area is clean with only a small amount of drainage to pad. Patient is getting a 1L bolus of NS as her creatinine has gone up. Patient is independent in room and able to use the bathroom. Moving slow but well. Appetite good and blood sugar 137. Insulin given.
[2022-04-08] MEDS: ONDANSETRON 4 MG/2 ML INJ IV (21:45)
[2022-04-08] MEDS: CALCIUM CARBONATE 500 MG TAB 1000 MG PO (21:47)
[2022-04-08] MEDS: SODIUM CHLORIDE 0.9% FLUSH 10 ML IV ×2 (21:48→21:49)
[2022-04-09] VITALS (7 sets, daily range): BP systolic 112–126; BP diastolic 69–75; PULSE 60–67; RESP 16–18; TEMP 35.7–36.5; O2SAT 96–98
[2022-04-09] MEDS: PANTOPRAZOLE DR 40 MG TABLET PO (06:06)
[2022-04-09] MEDS: ONDANSETRON 4 MG ODT PO ×3 (06:06→18:10)
[2022-04-09 06:11] LABS: Add Manual Diff / Slide Review NO; Basophils Absolute Auto 100 /uL (0-100); Basophils Percent Auto 0.8 % (0-2); Eosinophils Absolute Auto 100 /uL (0-450); Eosinophils Percent Auto 0.6 % (2-4); Hematocrit 28.5 % (36-46); Hemoglobin 9.4 g/dL (12.0-16.0); Lymphocytes Absolute Auto 1000 /uL (1100-4500); Lymphocytes Percent Auto 11.8 % (25-40); Mean Corpuscular Hemoglobin 29.5 PG (26-34); Mean Corpuscular Volume 89.6 fL (80-100); Monocytes Absolute Auto 700 /uL (0-900); Monocytes Percent Auto 8.2 % (3-14); Neutrophils Absolute Auto 7000 /uL (1500-7000); Neutrophils Percent Auto 78.6 % (50-75); Platelet Count 285 X10^3/uL (150-400); Red Blood Cell Count 3.18 X10^6/uL (4.0-5.2); Red Cell Distribution Width 15.6 % (11.6-14.8); White Blood Cell Count 8.9 X10^3/uL (4.5-11.0)
[2022-04-09 06:19] LABS: Alanine Aminotransferase 40 IU/L (<35); Albumin 2.6 g/dL (3.5-5.0); Albumin Globulin Ratio 0.7 (1.0-2.8); Alkaline Phosphatase 528 U/L (38-126); Aspartate Aminotransferase 67 IU/L (14-36); BUN Creatinine Ratio 8.3 (6-22); Bilirubin Total 1.6 mg/dL (0.2-1.3); Blood Urea Nitrogen 14 mg/dL (7-17); Calcium 8.7 mg/dL (8.4-10.2); Carbon Dioxide 22 mmol/L (22-32); Chloride 103 mmol/L (98-107); Estimated Glomerular Filt Rate 35 mL/min (>60); Globulin 3.6 g/dL (1.7-4.1); Glucose 152 mg/dL (70-100); HEMOLYSIS < 15 (0-50); Potassium 4.2 mmol/L (3.4-5.1); Sodium 137 mmol/L (137-145); Total Protein 6.2 g/dL (6.3-8.2)
[2022-04-09] MEDS: SUCRALFATE 1 GM TABLET PO ×4 (08:09→20:04)
[2022-04-09] MEDS: METOPROLOL ER 50 MG TABLET 100 MG PO ×2 (08:11→20:03)
[2022-04-09] MEDS: DABIGATRAN 75 MG CAPSULE 150 MG PO ×2 (08:11→20:04)
[2022-04-09] MEDS: LOSARTAN 50 MG TABLET 100 MG PO (08:11)
[2022-04-09] MEDS: ATORVASTATIN 20 MG TABLET 10 MG PO (08:11)
[2022-04-09] MEDS: DOCUSATE 100 MG CAPSULE PO ×2 (08:13→20:04)
[2022-04-09] MEDS: HYDROMORPHONE 4 MG TABLET PO ×4 (08:13→20:04)
[2022-04-09] MEDS: SPIRONOLACTONE 25 MG TABLET PO ×2 (08:13→20:03)
[2022-04-09] MEDS: ENOXAPARIN 40 MG/0.4 ML SYRINGE SUBCUT (08:13)
[2022-04-09] MEDS: CHOLECALCIFEROL (VITAMIN D3) 1,000 UNIT TABLET 2000 UNIT PO (08:13)
--- NOTE | 2022-04-09 09:02 | PC.NURSE ---
Assess- Patient is alert and oriented x4. She complained of acid reflux, given carafate and this has helped her. She complains of pain at 5/10. Given dilaudid and helpful. Abcess is open to air and draining small amounts of drainage. She is walking around independently in her room. Ate some at breakfast and is resting now.
--- NOTE | 2022-04-09 10:38 | P.DS_ITS ---
History of Present Illness History of Present Illness Date Patient Seen: 04/09/22 Time Patient Seen: 10:38 Chief complaint: cyst on groin, cancer, diabetes Discharge Providers Provider Date of admission: 04/04/22 15:04 Primary care physician: Kilo Ag MD Consults: 04/06/22 09:33 Consult to Physical Therapy Evaluate & Treat Comment: Physician Instructions: Evaluate and Treat Discharge provider: Armin Jacobs MD Exam Vital Signs (past 8 hours): - 04/09/22 03:00 04/09/22 07:00 Temperature 96.3 F L 96.8 F L Pulse Rate 65 67 Respiratory Rate 18 18 Blood Pressure 112/72 119/75 Pulse Oximetry 96 96 Oxygen Flow Rate 0 0 Oxygen Delivery Method Room Air Oxygen Flow Rate 0 Objective Labs 04/09/22 05:46 04/09/22 05:46 Labs: Laboratory Results - last 24 hr 04/09/22 04/09/22 05:46 05:46 WBC 8.9 RBC 3.18 L Hgb 9.4 L Hct 28.5 L MCV 89.6 MCH 29.5 MCHC 33.0 RDW 15.6 H Plt Count 285 Neut % (Auto) 78.6 H Lymph % (Auto) 11.8 L [place] % (Auto) 8.2 Eos % (Auto) 0.6 L Baso % (Auto) 0.8 Neut # (Auto) 7000 Lymph # (Auto) 1000 L [place] # (Auto) 700 Eos # (Auto) 100 Baso # (Auto) 100 Sodium 137 Potassium 4.2 Chloride 103 Carbon Dioxide 22 BUN 14 Creatinine 1.69 H Estimated GFR 35 L BUN/Creatinine Ratio 8.3 Glucose 152 H Calcium 8.7 Total Bilirubin 1.6 H AST 67 H ALT 40 H Alkaline Phosphatase 528 H Total Protein 6.2 L Albumin 2.6 L Globulin 3.6 Albumin/Globulin Ratio 0.7 L PFSH Medical History Diabetes type 2, controlled Tinea cruris Social History household members: spouse Smoking Status: Current every day smoker alcohol intake: current Discharge Plan Discharge Plan Patient Disposition: Home Discharge orders & Medications Prescriptions: New metformin 1,000 mg tablet 1,000 mg PO BID Qty: 60 0RF Continued spironolactone 25 mg tablet 25 mg PO BID metoprolol succinate 100 mg tablet extended release 24 hr 100 mg PO BID atorvastatin 10 mg tablet 10 mg PO DAILY losartan 100 mg tablet 100 mg PO DAILY cholecalciferol (vitamin D3) 50 mcg (2,000 unit) capsule 50 mcg PO DAILY hydromorphone 4 mg tablet 4 mg PO QID Label Comments: TAKE 1 TABLET BY MOUTH EVERY 4 HOURS ondansetron HCl 4 mg tablet 4 mg PO Q6HR Label Comments: TAKE 1 TABLET BY MOUTH EVERY 6 HOURS NEEDED FOR NAUSEA dabigatran etexilate [Pradaxa] 150 mg Capsule 150 mg PO BID sucralfate [Carafate] 1 gram tablet 1 g PO QID Qty: 60 0RF omeprazole 40 mg capsule,delayed release(DR/EC) 40 mg PO BID Qty: 60 0RF Discontinued glyburide 5 mg tablet 10 mg PO BID Label Comments: Take 1 tablet by mouth once a day Follow up/Referrals: Annie Rhoades MD [Physician] - 1 Week (Please call [facility] with any concerns or questions. I would like to schedule a follow-up in 7-14 days, to [facility].) Kilo Ag MD [Primary Care Provider] - 2 Weeks Discharge Health Status Multidrug resistant organism: No MDRO Diet/Activity/Treatments Diet: Diet as Tolerated and Carb-consistent/Diabetic Skin/Wound/Dressing Care Other wound treatment: Continue wound care as being done in hospital, daily Sitz bath and gauze covering Visit Report/Discharge Packet Instructions: [facility]: Wound Care Stand Alone Forms: Patient Portal/API, Stroke Signs & Symptoms Discharge Data Primary Care Provider: Kilo Ag Quality VTE Deep Vein Thrombosis/Pulmonary Embolism Present on Admission: No
--- NOTE | 2022-04-09 11:30 | DI.US.S_ITS ---
PROCEDURE: US RENAL COMPLETE INDICATIONS: ACUTE KIDNEY INJURY TECHNIQUE: Real-time scanning was performed of the kidneys and bladder, with image documentation. COMPARISON: [facility], CT, CT ABDOMEN PELVIS W CON, 04/04/2022, 13:41. FINDINGS: Kidneys: Kidneys are normal in size. Right kidney measures 12.3 cm long; left kidney measures 9.9 cm long. Right renal cortical thickness is 1.1 cm; left renal cortical thickness is 1.6 cm. Renal cortical echotexture is normal. No hydronephrosis or nephrolithiasis. No suspicious solid mass lesions. Left renal lobulation without mass lesion on associated CT or MR. Bladder: The urinary bladder decompressed but unremarkable Miscellaneous: No free pelvic fluid. IMPRESSION: Stable unremarkable ultrasound of the kidneys Approved by: Edward Blanco M.D. on 04/09/2022 at 14:22
--- NOTE | 2022-04-09 11:33 | P.PN_ITS ---
Subjective Subjective Date Patient Seen: 04/09/22 Time Patient Seen: 11:33 Interval history: Patient generally feeling improved over status at time of admission but not quite as good as she was yesterday. Having a lot of reflux symptoms does not think the pantoprazole works anywhere near as well as the omeprazole Still with 2 to 3+ pitting edema at the ankle and foot. Concerned about her kidney function which she was told was abnormal yesterday for the first time Pain seems to be okay at the moment. Exam Vital Signs (past 8 hours): - 04/09/22 07:00 Temperature 96.8 F L Pulse Rate 67 Respiratory Rate 18 Blood Pressure 119/75 Pulse Oximetry 96 Oxygen Flow Rate 0 Oxygen Delivery Method Room Air Oxygen Flow Rate 0 Objective Labs 04/09/22 05:46 04/09/22 05:46 Labs: Laboratory Results - last 24 hr 04/09/22 04/09/22 05:46 05:46 WBC 8.9 RBC 3.18 L Hgb 9.4 L Hct 28.5 L MCV 89.6 MCH 29.5 MCHC 33.0 RDW 15.6 H Plt Count 285 Neut % (Auto) 78.6 H Lymph % (Auto) 11.8 L [place] % (Auto) 8.2 Eos % (Auto) 0.6 L Baso % (Auto) 0.8 Neut # (Auto) 7000 Lymph # (Auto) 1000 L [place] # (Auto) 700 Eos # (Auto) 100 Baso # (Auto) 100 Sodium 137 Potassium 4.2 Chloride 103 Carbon Dioxide 22 BUN 14 Creatinine 1.69 H Estimated GFR 35 L BUN/Creatinine Ratio 8.3 Glucose 152 H Calcium 8.7 Total Bilirubin 1.6 H AST 67 H ALT 40 H Alkaline Phosphatase 528 H Total Protein 6.2 L Albumin 2.6 L Globulin 3.6 Albumin/Globulin Ratio 0.7 L PFSH Medical History Diabetes type 2, controlled Tinea cruris Social History household members: spouse Smoking Status: Current every day smoker alcohol intake: current Assessment & Plan Assessment & Plan narrative: 1. Groin abscess-continue with conservative care etcetera. No evidence of active infection 2. Acute kidney injury-creatinine bump slightly yesterday and even higher yet this morning. Patient appears to be asymptomatic. I am going to give her some gentle IV fluids through the course of the day and plan to recheck tomorrow. Perhaps related to her colonoscopy prep more than anything else. She obviously has some fluid shifts ongoing with the lower extremity edema etcetera. She is not really received any nephrotoxic medications as far as I can tell the sees other than contrast for the CT on admission). Not overly worried but probably worth keeping her here. Will plan to check renal ultrasound as well to be sure there is not some evidence of obstruction etcetera specially given the known malignancy 3. Diabetes-blood sugar numbers have been very much better controlled once the abscess was drained. She actually had her diabetes meds held yesterday and I am going to back off on medication significantly today. Discontinue insulin long- acting as well as glyburide continue with metformin for now which is her home medication. Continue to monitor numbers. Continue with carb consistent diet 4. GERD-patient with significant GERD symptoms. Spouse brought in her home omeprazole so she can take that I am going to add famotidine to the regimen. 5. Adenocarcinoma of unclear etiology-patient was expecting PET scan yesterday which did not happen of course. Do not believe that is possible to obtain PET scan in conjunction with inpatient hospitalization for reimbursement reasons. In addition we only have the PET scanner here [place] 1 or 2 days a month and that is on Monday so that does not happen on an everyday basis and I could not have happened on Monday. Discussed this with patient and while she is disappointed and frankly feels like she got told the wrong information unfortunately there is no alternative at this point. She will keep her scheduled appointment for the 20 of April for that procedure 6. Paroxysmal atrial fibrillation-patient back on her Pradaxa. Okay for now assuming renal function does get any worse. She was also on Lovenox for VTE prophylaxis which I will discontinue 7. Hypertension-patient blood pressure on the lowish side but will continue losartan for now. Losartan his long-term medication doubt it is having an affect on her renal function but may consider discontinuation of that if renal function does not improve Quality VTE Deep Vein Thrombosis/Pulmonary Embolism Present on Admission: No
[2022-04-09] MEDS: SODIUM CHLORIDE 0.9% 1,000 ML 125 ML IV (12:07)
[2022-04-09] MEDS: INSULIN LISPRO 100 UNIT/ML 3ML VIAL SUBCUT (12:10)
[2022-04-09] MEDS: FAMOTIDINE 20 MG TABLET PO (20:04)
[2022-04-09] MEDS: SODIUM CHLORIDE 0.9% FLUSH 10 ML IV (20:04)
[2022-04-10 00:18] VITALS: BP 115/67; PULSE 63; RESP 17; TEMP 36.1; O2SAT 98
[2022-04-10 03:45] VITALS: BP 98/69; PULSE 60; RESP 17; TEMP 35.7; O2SAT 97
[2022-04-10] MEDS: PANTOPRAZOLE DR 40 MG TABLET PO (05:11)
[2022-04-10] MEDS: ONDANSETRON 4 MG ODT PO ×3 (05:11→12:09)
[2022-04-10 06:59] LABS: Add Manual Diff / Slide Review NO; Basophils Absolute Auto 100 /uL (0-100); Basophils Percent Auto 0.6 % (0-2); Eosinophils Absolute Auto 100 /uL (0-450); Eosinophils Percent Auto 0.9 % (2-4); Hematocrit 28.2 % (36-46); Hemoglobin 9.5 g/dL (12.0-16.0); Lymphocytes Absolute Auto 1300 /uL (1100-4500); Lymphocytes Percent Auto 13.3 % (25-40); Mean Corpuscular HGB Conc 33.6 % (30-36); Mean Corpuscular Hemoglobin 30.1 PG (26-34); Mean Corpuscular Volume 89.7 fL (80-100); Monocytes Absolute Auto 700 /uL (0-900); Neutrophils Absolute Auto 7400 /uL (1500-7000); Neutrophils Percent Auto 78.2 % (50-75); Platelet Count 311 X10^3/uL (150-400); Red Blood Cell Count 3.15 X10^6/uL (4.0-5.2); Red Cell Distribution Width 15.4 % (11.6-14.8); White Blood Cell Count 9.5 X10^3/uL (4.5-11.0)
[2022-04-10 07:11] LABS: Alanine Aminotransferase 35 IU/L (<35); Albumin 2.6 g/dL (3.5-5.0); Albumin Globulin Ratio 0.7 (1.0-2.8); Alkaline Phosphatase 492 U/L (38-126); Aspartate Aminotransferase 58 IU/L (14-36); BUN Creatinine Ratio 9.9 (6-22); Bilirubin Total 1.4 mg/dL (0.2-1.3); Blood Urea Nitrogen 14 mg/dL (7-17); Calcium 8.4 mg/dL (8.4-10.2); Carbon Dioxide 23 mmol/L (22-32); Chloride 103 mmol/L (98-107); Estimated Glomerular Filt Rate 43 mL/min (>60); Globulin 3.5 g/dL (1.7-4.1); Glucose 123 mg/dL (70-100); HEMOLYSIS < 15 (0-50); Potassium 4.5 mmol/L (3.4-5.1); Sodium 136 mmol/L (137-145); Total Protein 6.1 g/dL (6.3-8.2)
[2022-04-10 07:12] LABS: BUN Creatinine Ratio 10.1 (6-22); Blood Urea Nitrogen 14 mg/dL (7-17); Calcium 8.5 mg/dL (8.4-10.2); Carbon Dioxide 23 mmol/L (22-32); Chloride 103 mmol/L (98-107); Estimated Glomerular Filt Rate 44 mL/min (>60); Glucose 124 mg/dL (70-100); HEMOLYSIS < 15 (0-50); Potassium 4.5 mmol/L (3.4-5.1); Sodium 136 mmol/L (137-145)
[2022-04-10 08:08] VITALS: BP 111/71; PULSE 63; RESP 17; TEMP 36.2; O2SAT 97
[2022-04-10] MEDS: METFORMIN XR 500 MG TABLET 1000 MG PO (08:17)
[2022-04-10] MEDS: DABIGATRAN 75 MG CAPSULE 150 MG PO (08:18)
[2022-04-10] MEDS: METOPROLOL ER 50 MG TABLET 100 MG PO (08:18)
[2022-04-10] MEDS: HYDROMORPHONE 4 MG TABLET PO (08:19)
[2022-04-10] MEDS: SPIRONOLACTONE 25 MG TABLET PO (08:19)
[2022-04-10] MEDS: CHOLECALCIFEROL (VITAMIN D3) 1,000 UNIT TABLET 2000 UNIT PO (08:19)
[2022-04-10] MEDS: SUCRALFATE 1 GM TABLET PO ×2 (08:19→12:09)
[2022-04-10] MEDS: DOCUSATE 100 MG CAPSULE PO (08:19)
[2022-04-10] MEDS: ATORVASTATIN 20 MG TABLET 10 MG PO (08:19)
[2022-04-10] MEDS: FAMOTIDINE 20 MG TABLET PO (08:20)
[2022-04-10] MEDS: SODIUM CHLORIDE 0.9% FLUSH 10 ML IV (08:20)
[2022-04-10 09:26] VITALS: BP 113/69; PULSE 59
--- NOTE | 2022-04-10 11:22 | PM.DS.1 ---
History of Present Illness History of Present Illness Chief complaint: cyst on groin, cancer, diabetes Narrative: Pt with recent diagnosis of liver cancer s/p biopsy being worked up by oncology with plan for first outpatient visit today. History of increasingly poorly controlled diabetes now with BGs in the 500s although does not appear to be in active DKA or HHS Hx of pernicious groin yeast infections now presents with groin mass and pain found to have deep perineal abscess on CT {from Dr. Ambrocio's H&P 04/04/22} Discharge Providers Provider Date of admission: 04/04/22 15:04 Discharge Date: 04/10/22 Primary care physician: Kilo Ag MD Consults: 04/06/22 09:33 Consult to Physical Therapy Evaluate & Treat Comment: Physician Instructions: Evaluate and Treat Discharge provider: Armin Jacobs MD Summary Hospital Course Discharge Diagnosis: 1. Type 2 diabetes with hyperglycemia and ketosis without evidence of acidosis. Much improved 2. Perirectal abscess, status post incision and drainage 3. Hypertension 4. Paroxysmal atrial fibrillation 5. Chronic anticoagulation with direct oral anticoagulant for stroke risk reduction due to paroxysmal atrial fibrillation 6. Presumed primary liver cancer, still undergoing evaluation prior to treatment 7. Abnormality in sigmoid colon on CT imaging not found on colonoscopy 8. Severe GERD Hospital Course: Patient was admitted to the hospital for her hyperglycemia and evidence of this perirectal abscess The patient was taken to surgery for incision and drainage of the abscess by General surgery. It was not felt to be widely infected in fact felt as though merely opening and draining the pocket was sufficient for treatment. Patient indeed did not show evidence of further infectious issues had improvement in her blood sugars etcetera with simple drainage. Did not require antibiotic therapy for this. She will he has continued with local wound care with Sitz baths and will have secondary healing Patient's blood sugar was well out of control upon admission as above. It been that way for some time apparently. Likely secondary least in part to her abnormality with the perirectal abscess. Once this was drained blood sugars improved significantly. She was able to be maintained with adequate blood sugar control off of long-acting insulin off of glyburide and on metformin alone. This is a home medication that she will be discharged on at home as well Patient's blood pressure was up and down. Patient will continue with her usual home medications for blood pressure. No evidence of atrial fibrillation during this hospitalization and patient continued on her Pradaxa as well Patient with probable liver cancer still undergoing evaluation. Set for PET scanning on the 20 of April. On admission she had a CT scan that demonstrated the perirectal abscess but also showed abnormalities of the rectosigmoid colon. Colonoscopy was performed which failed to demonstrate these abnormalities. Therefore given lack of other source of abnormality in her liver it seems likely this is a primary liver cancer. Patient does have oncology appointments already in place for evaluation and subsequent management Exam Vital Signs (past 8 hours): - 04/10/22 03:45 04/10/22 08:08 04/10/22 09:26 Temperature 96.3 F L 97.1 F L Pulse Rate 60 63 59 L Respiratory Rate 17 17 Blood Pressure 98/69 111/71 113/69 Pulse Oximetry 97 97 Oxygen Flow Rate 0 Oxygen Delivery Method Room Air Oxygen Flow Rate 0 Objective Labs 04/10/22 06:37 04/10/22 06:37 Labs: Laboratory Results - last 24 hr 04/10/22 04/10/22 04/10/22 06:37 06:37 06:37 WBC 9.5 RBC 3.15 L Hgb 9.5 L Hct 28.2 L MCV 89.7 MCH 30.1 MCHC 33.6 RDW 15.4 H Plt Count 311 Neut % (Auto) 78.2 H Lymph % (Auto) 13.3 L Wright % (Auto) 7.0 Eos % (Auto) 0.9 L Baso % (Auto) 0.6 Neut # (Auto) 7400 H Lymph # (Auto) 1300 Wright # (Auto) 700 Eos # (Auto) 100 Baso # (Auto) 100 Sodium 136 L 136 L Potassium 4.5 4.5 Chloride 103 103 Carbon Dioxide 23 23 BUN 14 14 Creatinine 1.39 H 1.42 H Estimated GFR 44 L 43 L BUN/Creatinine Ratio 10.1 9.9 Glucose 124 H 123 H Calcium 8.5 8.4 Total Bilirubin 1.4 H AST 58 H ALT 35 H Alkaline Phosphatase 492 H Total Protein 6.1 L Albumin 2.6 L Globulin 3.5 Albumin/Globulin Ratio 0.7 L PFSH Medical History Diabetes type 2, controlled Tinea cruris Social History (Reviewed 04/04/22 @ 14:04 by DIVINE Gutierrez household members: spouse Smoking Status: Current every day smoker alcohol intake: current Discharge Assessment & Plan Assessment and Plan Plan of Treatment: Follow-up with General surgery as outlined in their notes Follow-up with oncology as has already been arranged Patient will follow up with her PCP Dr. Ag in 7-14 days as well Discharge Plan Discharge Plan Patient Disposition: Home Discharge orders & Medications Prescriptions: New metformin 1,000 mg tablet 1,000 mg PO BID Qty: 60 0RF Continued spironolactone 25 mg tablet 25 mg PO BID metoprolol succinate 100 mg tablet extended release 24 hr 100 mg PO BID atorvastatin 10 mg tablet 10 mg PO DAILY losartan 100 mg tablet 100 mg PO DAILY cholecalciferol (vitamin D3) 50 mcg (2,000 unit) capsule 50 mcg PO DAILY hydromorphone 4 mg tablet 4 mg PO QID Label Comments: TAKE 1 TABLET BY MOUTH EVERY 4 HOURS ondansetron HCl 4 mg tablet 4 mg PO Q6HR Label Comments: TAKE 1 TABLET BY MOUTH EVERY 6 HOURS NEEDED FOR NAUSEA dabigatran etexilate [Pradaxa] 150 mg Capsule 150 mg PO BID sucralfate [Carafate] 1 gram tablet 1 g PO QID Qty: 60 0RF omeprazole 40 mg capsule,delayed release(DR/EC) 40 mg PO BID Qty: 60 0RF Discontinued glyburide 5 mg tablet 10 mg PO BID Label Comments: Take 1 tablet by mouth once a day Follow up/Referrals: Annie Rhoades MD [Physician] - 1 Week (Please call [facility] with any concerns or questions. I would like to schedule a follow-up in 7-14 days, to check on healing.) Kilo Ag MD [Primary Care Provider] - 2 Weeks Discharge Health Status Multidrug resistant organism: No MDRO Diet/Activity/Treatments Diet: Diet as Tolerated and Carb-consistent/Diabetic Skin/Wound/Dressing Care Other wound treatment: Continue wound care as being done in hospital, daily Sitz bath and gauze covering Visit Report/Discharge Packet Instructions: [facility]: Wound Care Stand Alone Forms: Patient Portal/API, Surgery Discharge Discharge Data Primary Care Provider: Kilo Ag Quality VTE Deep Vein Thrombosis/Pulmonary Embolism Present on Admission: No
--- NOTE | 2022-04-10 11:34 | CM.DPC ---
DCP Discharge Home Per MD, pt is medically stable to d/c home today with outpt f/u with Oncologist Dr. Su on Mon04/13/22 and with Surgeon regarding her infection that was treated and will continue with Sitz baths for healing. Per RN, pt no longer has dressing changes or wound care needs as it is open to air for ongoing healing with sitz baths. Pt has been ambulating independently in room and pt does not meet homebound criteria for HH and pt had declined HH as well stating she has good spouse and adult Dtr support. Plan: Patient to d/c home today via family POV and outpt f/u for PET scan, oncology, and outpt general surgery. No further SW needs at this time. PARAG Ortiz
[2022-04-10] MEDS: INSULIN LISPRO 100 UNIT/ML 3ML VIAL SUBCUT (12:01)
--- NOTE | 2022-04-10 14:07 | PC.NURSE ---
Patient discharged: Patient teaching done at bedside, all questions and concerns addressed. Heavy teaching emphsis on maintaining a carb consistant diet & carb counting. Patient is aware of new medication. Made aware to f/u with providers at one and two weeks. Patient's appt. were not sched. due to it being the weekend. Family member present to escort patient home. Patient was taken down stairs via WC. VSS. Patient A&O x4 and in stable condition.
== END 2022-04-10 13:15 | disposition home or self-care (01) | DRG 345 ==
LOC: ED 15:04 → AC 15:04
PROVIDERS: Family Medicine; Internal Medicine; Surgery; Admitting Provider Family Medicine; Emergency Provider Emergency Medicine; Family Provider Family Medicine; PCP Family Medicine; Referring Provider Emergency Medicine; Visit Provider Family Medicine
PROC: (CPT 46040; principal; 2022-04-05 16:15)
PROC: 0DJD8ZZ Inspection of Lower Intestinal Tract, Via Natural or Artificial Opening Endoscopic (ICD-10-PCS; CPT 45378; principal; 2022-04-07 11:15)
DX: K61.1 Rectal abscess (principal); C22.0 Liver cell carcinoma; N17.9 Acute kidney failure, unspecified; E11.65 Type 2 diabetes mellitus with hyperglycemia; E78.5 Hyperlipidemia, unspecified; M62.838 Other muscle spasm; F17.210 Nicotine dependence, cigarettes, uncomplicated; I10 Essential (primary) hypertension; I48.0 Paroxysmal atrial fibrillation; K80.20 Calculus of gallbladder without cholecystitis without obstruction; K21.9 Gastro-esophageal reflux disease without esophagitis; R93.3 Abnormal findings on diagnostic imaging of other parts of digestive tract; Z79.01 Long term (current) use of anticoagulants; Z79.84 Long term (current) use of oral hypoglycemic drugs; Z20.822 Contact with and (suspected) exposure to COVID-19
CPT/HCPCS: 36415; 74177; 76770; 80048; 80053; 81001; 82009; 82805; 82962; 83605; 83690; 84145; 85025; 85610; 85730; 87040; 87635; 96365; 96367; 99233; 99238; 99285; C9803; A9270; J1170; J1650; J1815; J2405; J2543; J2704; J3010; Q9967

== ENCOUNTER 2022-04-29 09:07 | Day surgery (SDC) | payer OTHER, SELFPAY ==
[2022-04-04 16:04] VITALS: BMI 23.3
--- NOTE | 2022-04-29 | DI.RAD.S_ITS ---
PROCEDURE: XR CHEST 1V INDICATIONS: left SCV port TECHNIQUE: One view of the chest was acquired. COMPARISON: [facility], CR, XR CHEST 1V, 03/11/2022, 16:39. [facility], CR, XR CHEST 1V, 03/22/2020, 14:02. FINDINGS: Surgical changes and devices: Left catheter terminates in the SVC. Lungs and pleura: Low lung volumes. Vascular crowding. No dense consolidation or pleural effusion. Mediastinum: Mediastinal contours appear normal. Heart size is normal. Bones and chest wall: No suspicious bony lesions. Overlying soft tissues appear unremarkable. IMPRESSION: Left port catheter terminates in the mid SVC. Dictated by: Noble Mcclellan M.D. on 04/29/2022 at 11:24 Approved by: Noble Mcclellan M.D. on 04/29/2022 at 11:25
[2022-04-29] MEDS: LACTATED RINGERS 1,000 ML 42 ML IV (09:35)
[2022-04-29] MEDS: ONDANSETRON 4 MG/2 ML INJ IV (09:42)
--- NOTE | 2022-04-29 10:01 | PM.PREOP ---
Pre-operative Note COVID-19 COVID-19 status: Negative Criteria for continued procedure: Deterioration of the patient's condition or overall health Interval Note History & Physical reviewed/Exam performed by Physician: Yes Changes to H&P: Yes H&P completed within 30 days and has changed as indicated here:: I and D of perirectal abscess still draining, but improving.
[2022-04-29 10:17] VITALS: BMI 25.8
[2022-04-29 10:22] VITALS: BP 109/79; PULSE 104; RESP 16; TEMP 37.6; O2SAT 100
[2022-04-29] MEDS: CEFAZOLIN 2 GM/100 ML PREMIX 100 ML IV (10:38)
[2022-04-29] MEDS: HEPARIN 5,000 UNIT, SODIUM CHLORIDE 0.9% 50 ML IV (10:49)
[2022-04-29] MEDS: LIDOCAINE 1% 30 ML INJ (10:51)
[2022-04-29] MEDS: BUPIVACAINE 0.5% W/ EPI (PF) 30 ML VIAL INJ (10:52)
--- NOTE | 2022-04-29 10:53 | SUR.OPER ---
Supine on padded OR bed, head on pillow, arms padded and tucked at sides, legs uncrossed, safety belt at thigh, tape over blanket over lower legs .
--- NOTE | 2022-04-29 11:10 | PM.OP.1 ---
Operative Date/Time/Diagnoses Date of procedure: 04/29/22 Time of procedure: 11:10 Pre-op diagnosis: Long-term venous access Post-op diagnosis: same Procedure & Clinicians Procedure: Left subclavian vein Port-A-Cath Same procedure as scheduled: Yes Indications: Long-term venous access for chemo Surgeon: Stacie Pavon Click Yes if Unassisted: Yes Anesthesia Type: General Operative Notes Findings: Normal anatomy Closure Type: primary Specimen(s): none sent Applied: implant(s) (Regular-sized Port-A-Cath) Estimated Blood Loss (mL): 15 Blood products transfused: none Procedure in detail: Preop diagnosis: Adenocarcinoma Postop diagnosis: Same Operative procedure: Left subclavian vein Port-A-Cath placement. Power port Surgeon: Shelby Pavon MD Findings: Normal anatomy. Good positioning under fluoroscopy into the right atrium. No ectopy. Procedure: Patient placed in Trendelenburg position. Prepped and draped sterile fashion. Left subclavian vein was accessed and using Seldinger technique J-wire was placed. Port pocket was created just below the entry point, a small distance was tunneled with a catheter to the entry point. Catheter was placed into vein through a peel-away sheath. Positioning checked with fluoroscopy. Port was checked by aspiration and then flushing with heparin solution. The port was tacked to the anterior chest wall on a three-point positioning using 2 0 Ethibond. Once we had good positioning and good flow, the skin was closed. Skin closure consisted of interrupted 3-0 Vicryl subcutaneous closure followed by 4-0 Stratafix cutaneous closure in a running fashion. Steri-Strips and sterile dressings were placed. Patient was awakened and taken to recovery room in stable condition. Needle, instrument, sponge counts were correct. Specimen: None Blood loss: 15 mL Complications: none Post-operative Condition: stable Disposition: PACU
[2022-04-29 11:12] VITALS: BP 103/67; PULSE 100; RESP 30; TEMP 37.8; O2SAT 96
[2022-04-29 11:17] VITALS: BP 103/67; PULSE 97; RESP 100; O2SAT 97
[2022-04-29 11:22] VITALS: BP 107/77; PULSE 112; RESP 30; O2SAT 97
[2022-04-29 11:27] VITALS: BP 112/66; PULSE 102; RESP 40; O2SAT 95
[2022-04-29 11:33] VITALS: BP 107/79; PULSE 104; RESP 29; TEMP 37; O2SAT 96
--- NOTE | 2022-05-19 14:53 | P.HP_ITS ---
History of Present Illness History of Present Illness Date Patient Seen: 04/29/22 Chief complaint: PORT-A-CATH Narrative: New diagnosis of cancer. Needs power port for chemotherapy. Patient History Medical History Diabetes type 2, controlled Tinea cruris Surgical History History of incision and drainage (04/05/22) History of liver biopsy History of partial hysterectomy Hx of colonoscopy (04/07/22) Family & Social History Social History: household members spouse Tobacco & Substance use: Tobacco type cigarettes Smoking Status Current every day smoker alcohol intake former alcohol intake frequency a few times a week Substance Use Type marijuana Meds Home Medications and Allergies Home Medications Medication Instructions Recorded Confirmed Type omeprazole 40 mg capsule,delayed 40 mg PO BID #60 caps 03/22/20 05/06/22 Rx release atorvastatin 10 mg tablet 10 mg PO DAILY 03/02/22 05/06/22 History cholecalciferol (vitamin D3) 50 50 mcg PO DAILY 03/02/22 05/06/22 History mcg (2,000 unit) capsule metoprolol succinate 100 mg 100 mg PO BID 03/02/22 05/06/22 History tablet,extended release 24 hr spironolactone 25 mg tablet 25 mg PO BID 03/02/22 05/06/22 History hydromorphone 4 mg tablet 4 mg PO QID PRN Pain (Scale Score 04/04/22 05/06/22 History 7-10) dabigatran etexilate 150 mg 150 mg PO BID 04/05/22 05/06/22 History capsule (Pradaxa) metformin 1,000 mg tablet 1,000 mg PO BID #60 tabs 04/09/22 05/06/22 Rx fluconazole 100 mg tablet 100 mg PO DAILY 04/27/22 05/06/22 History (Diflucan) ondansetron 4 mg disintegrating 4 mg PO Q4HR PRN Nausea #30 tabs 04/27/22 05/06/22 Rx tablet folic acid 1 mg tablet 1 mg PO DAILY take while on Alimta 05/04/22 05/06/22 Rx chemo #30 tabs sucralfate 1 gram tablet (Carafate) 1 g PO QID PRN gerd 05/06/22 05/06/22 History Allergies Allergy/AdvReac Type Severity Reaction Status Date / Time Sulfa (Sulfonamide Allergy Unknown Verified 05/06/22 09:10 Antibiotics) Exam Vital Signs (past 8 hours): Oxygen Delivery Method Room Air Const General: cooperative and anxious Nutritional Appearance: thin Orientation: alert, awake and oriented x3 HENMT Head: normal to inspection Ears: hearing grossly normal bilaterally Face and sinus: normal facial exam Eyes General: appearance normal, both eyes and all related structures Neck Neck: trachea midline Chest Chest: normal inspection of the chest Resp Effort & Inspection: normal respiratory effort and able to speak in complete sentences Cardio Rate: regular rate Rhythm: regular rhythm GI Palpation: soft Neuro General: patient alert, patient awake, patient oriented x3 and moves all extr emities Cognition: normal cognition Psych Affect: normal affect Judgment: judgment good Assessment & Plan Assessment & Plan narrative: New cancer diagnosis here for power port placement Time Spent With Patient Time with patient: less than 30 minutes Critical Care time: I spent a total of [] minutes of critical care time on this patient's care today; this time is exclusive of procedural time.
== END 2022-04-29 11:59 | disposition home or self-care (01) ==
PROVIDERS: Family Provider Family Medicine; PCP Family Medicine; Referring Provider Surgery; Visit Provider Surgery
PROC: (CPT 36561; principal; 2022-04-29 10:45)
DX: C22.8 Malignant neoplasm of liver, primary, unspecified as to type (principal); E11.9 Type 2 diabetes mellitus without complications; Z79.84 Long term (current) use of oral hypoglycemic drugs
CPT/HCPCS: 36561; 71045; 76000; C1788; J0690; J1100; J1644; J2405; J2704

== ENCOUNTER 2022-05-06 08:28 | Emergency (ER) | payer OTHER, SELFPAY ==
[2022-04-04 16:04] VITALS: BMI 23.3
[2022-05-06] VITALS (259 sets, daily range): BP systolic 68–127; BP diastolic 44–92; PULSE 71–151; RESP 14–38; TEMP 35.9–37.2; O2SAT 92–98; BMI 28.3
--- NOTE | 2022-05-06 09:10 | DI.RAD.S_ITS ---
PROCEDURE: XR CHEST 1V INDICATIONS: suspected sepsis TECHNIQUE: One view of the chest was acquired. COMPARISON: [facility], CT, CT CHEST ABD PEL W CON, 03/11/2022, 10:17. [facility], CR, XR CHEST 1V, 04/29/2022, 11:09. FINDINGS: Surgical changes and devices: Left chest Port-A-Cath. Lungs and pleura: Lungs are clear. No pleural effusions or pneumothorax. Mediastinum: Mediastinal contours appear normal. Heart size is normal. Bones and chest wall: No suspicious bony lesions. Overlying soft tissues appear unremarkable. IMPRESSION: No evidence acute pulmonary process. Dictated by: Juan Luis Stock M.D. on 05/06/2022 at 9:34 Approved by: Juan Luis Stock M.D. on 05/06/2022 at 9:35
[2022-05-06] MEDS: SODIUM CHLORIDE 0.9% 1,000 ML 1000 ML IV ×2 (09:14→15:13)
[2022-05-06 09:19] LABS: Add Manual Diff / Slide Review NO; Basophils Absolute Auto 0 /uL (0-100); Basophils Percent Auto 0.3 % (0-2); Eosinophils Absolute Auto 100 /uL (0-450); Eosinophils Percent Auto 0.9 % (2-4); Hematocrit 33.3 % (36-46); Hemoglobin 11.1 g/dL (12.0-16.0); INR 1.7 (0.9-1.3); Lymphocytes Absolute Auto 2000 /uL (1100-4500); Lymphocytes Percent Auto 13.4 % (25-40); Mean Corpuscular HGB Conc 33.2 % (30-36); Mean Corpuscular Volume 87.4 fL (80-100); Monocytes Absolute Auto 400 /uL (0-900); Monocytes Percent Auto 2.5 % (3-14); Neutrophils Absolute Auto 12600 /uL (1500-7000); Neutrophils Percent Auto 82.9 % (50-75); Platelet Count 252 X10^3/uL (150-400); Prothrombin Time 19.4 SECONDS (10.1-12.7); Red Blood Cell Count 3.81 X10^6/uL (4.0-5.2); Red Cell Distribution Width 16.6 % (11.6-14.8); White Blood Cell Count 15.2 X10^3/uL (4.5-11.0)
[2022-05-06 09:21] LABS: PTT Partial Thromboplastin Tim 44 SECONDS (26-36)
[2022-05-06 09:25] LABS: Alanine Aminotransferase 42 IU/L (<35); Albumin 2.7 g/dL (3.5-5.0); Albumin Globulin Ratio 0.7 (1.0-2.8); Alkaline Phosphatase 540 U/L (38-126); Aspartate Aminotransferase 77 IU/L (14-36); BUN Creatinine Ratio 51.1 (6-22); Blood Urea Nitrogen 67 mg/dL (7-17); Carbon Dioxide 15 mmol/L (22-32); Chloride 96 mmol/L (98-107); Estimated Glomerular Filt Rate 47 mL/min (>60); Globulin 3.7 g/dL (1.7-4.1); Glucose 135 mg/dL (80-110); Lipase 1322 U/L (23-300); Potassium 4.4 mmol/L (3.4-5.1); Sodium 123 mmol/L (137-145); Total Protein 6.4 g/dL (6.3-8.2)
[2022-05-06 09:26] LABS: Lactate (Lactic Acid) 3.3 mmol/L (0.7-2.1)
--- NOTE | 2022-05-06 09:31 | ED_ITS ---
HPI - Abdominal Pain General Chief Complaint: Abdominal Pain Stated Complaint: cancer pt yellow eyes/ LOC/pain everywhere Time Seen by Provider: 05/06/22 09:29 Source: patient and family Mode of arrival: Wheelchair History of Present Illness HPI narrative: Patient 62-year-old female who has history of diabetes atrial fibrillation on Pradaxa hypertension recently diagnosed with adenocarcinoma presenting today with generalized weakness. She has yet to start chemotherapy due to ongoing illnesses. She was seen evaluated by Oncology yesterday noted have persistently elevated leukocytosis. She denies any fever. Minimal cough. She is received IV fluids at Oncology she has some urine output. She reports increasing pain in her abdomen daughter at bedside reports that she was able to ambulate yesterday but not able to ambulate today. Related Data Home Medications Medication Instructions Recorded Confirmed atorvastatin 10 mg tablet 10 mg PO DAILY 03/02/22 05/06/22 cholecalciferol (vitamin D3) 50 50 mcg PO DAILY 03/02/22 05/06/22 mcg (2,000 unit) capsule metoprolol succinate 100 mg 100 mg PO BID 03/02/22 05/06/22 tablet,extended release 24 hr spironolactone 25 mg tablet 25 mg PO BID 03/02/22 05/06/22 hydromorphone 4 mg tablet 4 mg PO QID PRN Pain (Scale Score 04/04/22 05/06/22 7-10) dabigatran etexilate 150 mg 150 mg PO BID 04/05/22 05/06/22 capsule (Pradaxa) fluconazole 100 mg tablet 100 mg PO DAILY 04/27/22 05/06/22 (Diflucan) sucralfate 1 gram tablet (Carafate) 1 g PO QID PRN gerd 05/06/22 05/06/22 Previous Rx's Medication Instructions Recorded omeprazole 40 mg capsule,delayed 40 mg PO BID #60 caps 03/22/20 release metformin 1,000 mg tablet 1,000 mg PO BID #60 tabs 04/09/22 ondansetron 4 mg disintegrating 4 mg PO Q4HR PRN Nausea #30 tabs 04/27/22 tablet folic acid 1 mg tablet 1 mg PO DAILY take while on Alimta 05/04/22 chemo #30 tabs dexamethasone 4 mg tablet 4 mg PO BID 3 days #6 tabs 05/05/22 Allergies Allergy/AdvReac Type Severity Reaction Status Date / Time Sulfa (Sulfonamide Allergy Unknown Verified 05/06/22 09:10 Antibiotics) Review of Systems Review of Systems ROS Unobtainable: All systems reviewed & are unremarkable except as noted in HPI and below Patient History Medical History Diabetes type 2, controlled Tinea cruris Surgical History History of incision and drainage (04/05/22) History of liver biopsy History of partial hysterectomy Hx of colonoscopy (04/07/22) Social History household members: spouse Smoking Status: Current every day smoker alcohol intake: former Smoking Status: Current every day smoker alcohol intake frequency: a few times a week Substance Use Type: marijuana Exam Initial Vital Signs Initial Vital Signs: Vital Signs Temperature 98.9 F 05/06/22 08:45 Pulse Rate 73 05/06/22 08:45 Respiratory Rate 18 05/06/22 08:45 Blood Pressure 101/77 05/06/22 08:45 Pulse Oximetry 98 05/06/22 08:45 Oxygen Delivery Method Room Air 05/06/22 08:45 GENERAL: Jaundice weak 62-year-old female and in no acute distress. HEENT: Head atraumatic,EOMI, pupils reactive, face symmetric, moist mucous membranes CARDIOVASCULAR: Regular rate and rhythm without murmurs, rubs or gallops. RESPIRATORY: Breath sounds equal bilaterally, no wheezes rales or rhonchi. ABDOMEN: Soft, + fluid wave mildly tender diffusely EXTREMITIES: Normal range of motion, no clubbing or edema. Neurovascularly intact NEUROLOGICAL: Alert and oriented x4.Normal gait and speech. SKIN: Warm, dry, no laceration, no petechiae, no rashes or lesions. Course Orders Ordered: Discontinued Medications Hydromorphone HCl (Hydromorphone 0.5 Mg Inj) 0.5 mg IV NOW ONE Stop: 05/06/22 09:38 Last Admin: 05/06/22 09:41 Dose: 0.5 mg Documented By: LUTHER Hydromorphone HCl (Hydromorphone 0.5 Mg Inj) 0.5 mg IV NOW ONE Stop: 05/06/22 12:36 Last Admin: 05/06/22 12:38 Dose: 0.5 mg Documented By: LUTHER Hydromorphone HCl (Hydromorphone 0.5 Mg Inj) 0.5 mg IV NOW ONE Stop: 05/06/22 15:18 Last Admin: 05/06/22 15:21 Dose: 0.5 mg Documented By: LUTHER Hydromorphone HCl (Hydromorphone 0.5 Mg Inj) 0.5 mg IV NOW ONE Stop: 05/06/22 18:49 Last Admin: 05/06/22 19:01 Dose: 0.5 mg Documented By: BILL Sodium Chloride (Normal Saline 0.9%) 1,000 mls @ 1,000 mls/hr IV BOLUS ONE Stop: 05/06/22 10:09 Last Infusion: 05/06/22 10:44 Dose: 0 mls/hr Documented By: Infusion: 05/06/22 09:40 Dose: 1,000 mls/hr Documented By: Admin: 05/06/22 09:14 Dose: 1,000 mls/hr Documented By: LUTHER NOREPINEPHRINE BITARTRATE/D5W (Levophed) 4 mg in 250 mls @ 30 mls/hr IV TITRATE GEOVANNA; Protocol Last Titration: 05/06/22 16:35 Dose: 14 mcg/min, 52.5 mls/hr Documented By: Admin: 05/06/22 15:15 Dose: 16 mcg/min, 60 mls/hr Documented By: Titration: 05/06/22 15:09 Dose: 16 mcg/min, 60 mls/hr Documented By: Titration: 05/06/22 13:00 Dose: 16 mcg/min, 60 mls/hr Documented By: Titration: 05/06/22 12:35 Dose: 14 mcg/min, 52.5 mls/hr Documented By: Titration: 05/06/22 11:43 Dose: 16 mcg/min, 60 mls/hr Documented By: Titration: 05/06/22 10:56 Dose: 12 mcg/min, 45 mls/hr Documented By: Admin: 05/06/22 10:31 Dose: 8 mcg/min, 30 mls/hr Documented By: LUTHER Sodium Chloride (Normal Saline 0.9%) 2,388.15 mls @ 796.05 mls/hr 30 ml/kg infuse over 3 hr (2388.15 ml) IV NOW ONE Stop: 05/06/22 13:17 Last Infusion: 05/06/22 13:38 Dose: 0 mls/hr Documented By: Admin: 05/06/22 10:31 Dose: 796.05 mls/hr Documented By: LUTHER Piperacillin Sod/Tazobactam (Sod 4.5 gm/ Sodium Chloride) 100 mls @ 200 mls/hr IV NOW ONE Stop: 05/06/22 10:19 Last Infusion: 05/06/22 11:31 Dose: 0 mls/hr Documented By: Admin: 05/06/22 10:47 Dose: 200 mls/hr Documented By: LUTHER Vancomycin HCl (Vancomycin) 1,250 mg in 250 mls @ 250 mls/hr IV NOW ONE Stop: 05/06/22 11:19 Last Infusion: 05/06/22 11:47 Dose: 0 mls/hr Documented By: Admin: 05/06/22 10:38 Dose: 250 mls/hr Documented By: LUTHER Sodium Chloride (Normal Saline 0.9%) 1,000 mls @ 75 mls/hr IV BOLUS ONE Stop: 05/07/22 00:04 Last Infusion: 05/06/22 14:11 Dose: 125 mls/hr Documented By: Admin: 05/06/22 10:47 Dose: 75 mls/hr Documented By: LUTHER Vasopressin 40 unit/ Sodium (Chloride) 102 mls @ 4.5 mls/hr IV CONT GEOVANNA Last Admin: 05/06/22 15:13 Dose: 4.5 mls/hr Documented By: LUTHER Piperacillin Sod/Tazobactam (Sod 3.375 gm/ Sodium Chloride) 100 mls @ 25 mls/hr IV Q8H GEOVANNA Last Infusion: 05/06/22 17:27 Dose: 0 mls/hr Documented By: Admin: 05/06/22 13:35 Dose: 25 mls/hr Documented By: BILL Sodium Chloride (Normal Saline 0.9%) 1,000 mls @ 1,000 mls/hr IV BOLUS ONE Stop: 05/06/22 15:51 Last Infusion: 05/06/22 16:15 Dose: 0 mls/hr Documented By: Admin: 05/06/22 15:13 Dose: 1,000 mls/hr Documented By: LUTHER Ondansetron HCl (Ondansetron 4 Mg/2 Ml Inj) 4 mg IV NOW PRN PRN Reason: Nausea And Vomiting Last Admin: 05/06/22 09:40 Dose: 4 mg Documented By: LUTHER Ondansetron HCl (Ondansetron 4 Mg/2 Ml Inj) 4 mg IV NOW ONE Stop: 05/06/22 12:36 Last Admin: 05/06/22 12:38 Dose: 4 mg Documented By: LUTHER Ondansetron HCl (Ondansetron 4 Mg/2 Ml Inj) 4 mg IV NOW ONE Stop: 05/06/22 19:04 Last Admin: 05/06/22 19:07 Dose: 4 mg Documented By: BILL Vital Signs Vital signs: Vital Signs - 8 hr 05/06/22 10:48 05/06/22 10:50 05/06/22 10:50 Temperature Pulse Rate 137 H 135 H Respiratory Rate 28 H 29 H Blood Pressure 81/59 L Pulse Oximetry 95 95 Oxygen Delivery Method Room Air 05/06/22 10:52 05/06/22 10:54 05/06/22 10:55 Temperature Pulse Rate 136 H 132 H Respiratory Rate 29 H 27 H Blood Pressure 70/53 L Pulse Oximetry 96 96 Oxygen Delivery Method 05/06/22 10:55 05/06/22 10:56 05/06/22 10:58 Temperature Pulse Rate 136 H 135 H 138 H Respiratory Rate 27 H 28 H 30 H Blood Pressure Pulse Oximetry 95 96 96 Oxygen Delivery Method 05/06/22 11:00 05/06/22 11:02 05/06/22 11:04 Temperature Pulse Rate 138 H 130 H 131 H Respiratory Rate 27 H 28 H 28 H Blood Pressure Pulse Oximetry 96 97 97 Oxygen Delivery Method 05/06/22 11:05 05/06/22 11:05 05/06/22 11:06 Temperature Pulse Rate 140 H 137 H Respiratory Rate 27 H 28 H Blood Pressure 107/57 L Pulse Oximetry 97 96 Oxygen Delivery Method 05/06/22 11:08 05/06/22 11:10 05/06/22 11:10 Temperature Pulse Rate 134 H 134 H Respiratory Rate 28 H 29 H Blood Pressure 98/53 L Pulse Oximetry 97 96 Oxygen Delivery Method 05/06/22 11:12 05/06/22 11:14 05/06/22 11:16 Temperature Pulse Rate 137 H 136 H 139 H Respiratory Rate 27 H 28 H 28 H Blood Pressure Pulse Oximetry 96 96 Oxygen Delivery Method Room Air 05/06/22 11:18 05/06/22 11:20 05/06/22 11:20 Temperature Pulse Rate 137 H 133 H Respiratory Rate 28 H 28 H Blood Pressure 79/53 L Pulse Oximetry 96 95 Oxygen Delivery Method 05/06/22 11:22 05/06/22 11:24 05/06/22 11:25 Temperature 96.6 F L 96.6 F L Pulse Rate 136 H 136 H Respiratory Rate 23 27 H Blood Pressure 92/58 L Pulse Oximetry 96 97 Oxygen Delivery Method 05/06/22 11:25 05/06/22 11:26 05/06/22 11:28 Temperature 96.6 F L 96.6 F L 96.6 F L Pulse Rate 130 H 136 H 141 H Respiratory Rate 28 H 27 H 25 H Blood Pressure Pulse Oximetry 96 96 96 Oxygen Delivery Method 05/06/22 11:30 05/06/22 11:30 05/06/22 11:32 Temperature 96.6 F L 96.6 F L Pulse Rate 139 H 143 H Respiratory Rate 14 23 Blood Pressure 110/66 Pulse Oximetry 96 95 Oxygen Delivery Method 05/06/22 11:34 05/06/22 11:35 05/06/22 11:35 Temperature 96.6 F L 96.6 F L Pulse Rate 135 H 135 H Respiratory Rate 25 H 24 Blood Pressure 101/65 Pulse Oximetry 95 95 Oxygen Delivery Method Room Air 05/06/22 11:36 05/06/22 11:38 05/06/22 11:40 Temperature 96.6 F L 96.6 F L 96.6 F L Pulse Rate 136 H 134 H 136 H Respiratory Rate 28 H 26 H 27 H Blood Pressure Pulse Oximetry 95 95 96 Oxygen Delivery Method 05/06/22 11:41 05/06/22 11:41 05/06/22 11:42 Temperature 96.6 F L 96.6 F L Pulse Rate 139 H 138 H Respiratory Rate 29 H 24 Blood Pressure 68/47 L Pulse Oximetry 96 96 Oxygen Delivery Method 05/06/22 11:44 05/06/22 11:44 05/06/22 11:46 Temperature 96.6 F L 96.6 F L Pulse Rate 138 H 137 H Respiratory Rate 26 H 29 H Blood Pressure 79/50 L Pulse Oximetry 96 96 Oxygen Delivery Method Room Air 05/06/22 11:47 05/06/22 11:47 05/06/22 11:48 Temperature 96.6 F L 96.6 F L Pulse Rate 143 H 143 H Respiratory Rate 28 H 29 H Blood Pressure 99/68 Pulse Oximetry 96 95 Oxygen Delivery Method 05/06/22 11:50 05/06/22 11:50 05/06/22 11:52 Temperature 96.6 F L 96.6 F L Pulse Rate 132 H 137 H Respiratory Rate 28 H 27 H Blood Pressure 111/75 Pulse Oximetry 95 95 Oxygen Delivery Method 05/06/22 11:54 05/06/22 11:55 05/06/22 11:55 Temperature 96.6 F L 96.6 F L Pulse Rate 143 H 136 H Respiratory Rate 26 H 26 H Blood Pressure 108/72 Pulse Oximetry 94 95 Oxygen Delivery Method 05/06/22 11:56 05/06/22 11:58 05/06/22 12:00 Temperature 96.6 F L 96.6 F L Pulse Rate 135 H 142 H Respiratory Rate 26 H 26 H Blood Pressure 107/66 Pulse Oximetry 95 95 Oxygen Delivery Method Room Air 05/06/22 12:00 05/06/22 12:02 05/06/22 12:04 Temperature 96.6 F L 96.6 F L 96.6 F L Pulse Rate 138 H 134 H 142 H Respiratory Rate 26 H 27 H 25 H Blood Pressure Pulse Oximetry 95 95 95 Oxygen Delivery Method 05/06/22 12:05 05/06/22 12:05 05/06/22 12:06 Temperature 96.6 F L 96.6 F L Pulse Rate 142 H 140 H Respiratory Rate 26 H 26 H Blood Pressure 90/69 Pulse Oximetry 95 96 Oxygen Delivery Method 05/06/22 12:08 05/06/22 12:10 05/06/22 12:10 Temperature 96.6 F L 96.6 F L Pulse Rate 131 H 142 H Respiratory Rate 28 H 26 H Blood Pressure 98/77 Pulse Oximetry 95 94 Oxygen Delivery Method 05/06/22 12:12 05/06/22 12:14 05/06/22 12:15 Temperature 96.6 F L 96.6 F L Pulse Rate 137 H 145 H Respiratory Rate 26 H 25 H Blood Pressure 99/80 Pulse Oximetry 94 95 Oxygen Delivery Method 05/06/22 12:15 05/06/22 12:16 05/06/22 12:18 Temperature 96.6 F L 96.6 F L 96.8 F L Pulse Rate 139 H 139 H 134 H Respiratory Rate 26 H 27 H 25 H Blood Pressure Pulse Oximetry 94 94 94 Oxygen Delivery Method Room Air 05/06/22 12:20 05/06/22 12:20 05/06/22 12:22 Temperature 96.8 F L 96.8 F L Pulse Rate 143 H 146 H Respiratory Rate 25 H 31 H Blood Pressure 108/75 Pulse Oximetry 94 96 Oxygen Delivery Method 05/06/22 12:24 05/06/22 12:25 05/06/22 12:25 Temperature 96.8 F L 96.8 F L Pulse Rate 145 H 136 H Respiratory Rate 31 H 30 H Blood Pressure 117/69 Pulse Oximetry 95 95 Oxygen Delivery Method 05/06/22 12:26 05/06/22 12:28 05/06/22 12:30 Temperature 96.8 F L 96.8 F L Pulse Rate 145 H 144 H Respiratory Rate 29 H 32 H Blood Pressure 120/65 Pulse Oximetry 95 96 Oxygen Delivery Method 05/06/22 12:30 05/06/22 12:32 05/06/22 12:34 Temperature 96.8 F L 96.8 F L 96.8 F L Pulse Rate 146 H 144 H 148 H Respiratory Rate 29 H 32 H 29 H Blood Pressure Pulse Oximetry 95 95 95 Oxygen Delivery Method 05/06/22 12:35 05/06/22 12:35 05/06/22 12:36 Temperature 96.8 F L 96.8 F L Pulse Rate 145 H 145 H Respiratory Rate 28 H 29 H Blood Pressure 122/79 Pulse Oximetry 95 95 Oxygen Delivery Method 05/06/22 12:38 Temperature 96.8 F L Pulse Rate 145 H Respiratory Rate 28 H Blood Pressure Pulse Oximetry 95 Oxygen Delivery Method MDM - Abdominal Pain Lab Data 05/06/22 13:30 05/06/22 13:30 Labs: Lab Results 03/03/23 03/03/23 03/03/23 Range/Units 09:05 09:05 09:05 WBC 15.2 H (4.5-11.0) X10^3/uL RBC 3.81 L (4.0-5.2) X10^6/uL Hgb 11.1 L (12.0-16.0) g/dL Hct 33.3 L (36-46) % MCV 87.4 (80-100) fL MCH 29.0 (26-34) PG MCHC 33.2 (30-36) % RDW 16.6 H (11.6-14.8) % Plt Count 252 (150-400) X10^3/uL Neut % (Auto) 82.9 H (50-75) % Lymph % (Auto) 13.4 L (25-40) % Caroline % (Auto) 2.5 L (3-14) % Eos % (Auto) 0.9 L (2-4) % Baso % (Auto) 0.3 (0-2) % Neut # (Auto) 11405 H (9258-1804) /uL Lymph # (Auto) 2000 (9086-1144) /uL Caroline # (Auto) 400 (0-900) /uL Eos # (Auto) 100 (0-450) /uL Baso # (Auto) 0 (0-100) /uL PT 19.4 H (10.1-12.7) SECONDS INR 1.7 H (0.9-1.3) APTT 44 H (26-36) SECONDS Sodium 123 L (137-145) mmol/L Potassium 4.4 (3.4-5.1) mmol/L Chloride 96 L (98-107) mmol/L Carbon Dioxide 15 L (22-32) mmol/L BUN 67 H (7-17) mg/dL Creatinine 1.31 H (0.52-1.04) mg/dL Estimated GFR 47 L (>60) mL/min BUN/Creatinine Ratio 51.1 H (6-22) Glucose 135 H (80-110) mg/dL Lactate (0.7-2.1) mmol/L Calcium 10.0 (8.4-10.2) mg/dL Total Bilirubin 6.0 H (0.2-1.3) mg/dL AST 77 H (14-36) IU/L ALT 42 H (<35) IU/L Alkaline Phosphatase 540 H (38-126) U/L Total Creatine Kinase (30-135) U/L CK-MB (CK-2) CK-MB (CK-2) Rel Index Troponin I (0.01-0.034) ng/mL NT-Pro-B Natriuret Pep (<125) pg/mL Total Protein 6.4 (6.3-8.2) g/dL Albumin 2.7 L (3.5-5.0) g/dL Globulin 3.7 (1.7-4.1) g/dL Albumin/Globulin Ratio 0.7 L (1.0-2.8) Lipase 1322 H (23-300) U/L Procalcitonin 9.31 H (<0.5) ng/mL Urine Color Urine Appearance Urine pH (4.5-8.0) Ur Specific [place] (1.000-1.035) Urine Protein (Negative) Urine Glucose (UA) (Negative) g/dL Urine Ketones (NEGATIVE) Urine Occult Blood (Negative) Urine Nitrate (Negative) Urine Bilirubin (NEGATIVE) Ur Bilirubin Confirm (Negative) Urine Urobilinogen (0.2) E.U./dL Ur Leukocyte Esterase (NEGATIVE) Urine RBC (0-5/HPF) Urine WBC (0-5/HPF) Amorphous Sediment Urine Bacteria (None) Hyaline Casts (None) Ur Culture Indicated? SARS-CoV-2 (PCR) (Negative) 05/06/22 05/06/22 05/06/22 Range/Units 09:05 09:05 10:08 WBC (4.5-11.0) X10^3/uL RBC (4.0-5.2) X10^6/uL Hgb (12.0-16.0) g/dL Hct (36-46) % MCV (80-100) fL MCH (26-34) PG MCHC (30-36) % RDW (11.6-14.8) % Plt Count (150-400) X10^3/uL Neut % (Auto) (50-75) % Lymph % (Auto) (25-40) % Caroline % (Auto) (3-14) % Eos % (Auto) (2-4) % Baso % (Auto) (0-2) % Neut # (Auto) (6519-6790) /uL Lymph # (Auto) (7015-3523) /uL Caroline # (Auto) (0-900) /uL Eos # (Auto) (0-450) /uL Baso # (Auto) (0-100) /uL PT (10.1-12.7) SECONDS INR (0.9-1.3) APTT (26-36) SECONDS Sodium (137-145) mmol/L Potassium (3.4-5.1) mmol/L Chloride (98-107) mmol/L Carbon Dioxide (22-32) mmol/L BUN (7-17) mg/dL Creatinine (0.52-1.04) mg/dL Estimated GFR (>60) mL/min BUN/Creatinine Ratio (6-22) Glucose (80-110) mg/dL Lactate 3.3 H (0.7-2.1) mmol/L Calcium (8.4-10.2) mg/dL Total Bilirubin (0.2-1.3) mg/dL AST (14-36) IU/L ALT (<35) IU/L Alkaline Phosphatase (38-126) U/L Total Creatine Kinase < 20 L (30-135) U/L CK-MB (CK-2) TNP CK-MB (CK-2) Rel Index TNP Troponin I < 0.012 (0.01-0.034) ng/mL NT-Pro-B Natriuret Pep 4680 H (<125) pg/mL Total Protein (6.3-8.2) g/dL Albumin (3.5-5.0) g/dL Globulin (1.7-4.1) g/dL Albumin/Globulin Ratio (1.0-2.8) Lipase (23-300) U/L Procalcitonin (<0.5) ng/mL Urine Color Urine Appearance Urine pH (4.5-8.0) Ur Specific [place] (1.000-1.035) Urine Protein (Negative) Urine Glucose (UA) (Negative) g/dL Urine Ketones (NEGATIVE) Urine Occult Blood (Negative) Urine Nitrate (Negative) Urine Bilirubin (NEGATIVE) Ur Bilirubin Confirm (Negative) Urine Urobilinogen (0.2) E.U./dL Ur Leukocyte Esterase (NEGATIVE) Urine RBC (0-5/HPF) Urine WBC (0-5/HPF) Amorphous Sediment Urine Bacteria (None) Hyaline Casts (None) Ur Culture Indicated? SARS-CoV-2 (PCR) Negative (Negative) 05/06/22 05/06/22 05/06/22 Range/Units 11:05 11:12 13:30 WBC 16.9 H (4.5-11.0) X10^3/uL RBC 3.64 L (4.0-5.2) X10^6/uL Hgb 10.6 L (12.0-16.0) g/dL Hct 32.3 L (36-46) % MCV 88.8 (80-100) fL MCH 29.2 (26-34) PG MCHC 32.9 (30-36) % RDW 16.9 H (11.6-14.8) % Plt Count 286 (150-400) X10^3/uL Neut % (Auto) 77.4 H (50-75) % Lymph % (Auto) 20.2 L (25-40) % Caroline % (Auto) 1.4 L (3-14) % Eos % (Auto) 0.5 L (2-4) % Baso % (Auto) 0.5 (0-2) % Neut # (Auto) 39132 H (1738-7358) /uL Lymph # (Auto) 3400 (7586-1934) /uL Caroline # (Auto) 200 (0-900) /uL Eos # (Auto) 100 (0-450) /uL Baso # (Auto) 100 (0-100) /uL PT (10.1-12.7) SECONDS INR (0.9-1.3) APTT (26-36) SECONDS Sodium (137-145) mmol/L Potassium (3.4-5.1) mmol/L Chloride (98-107) mmol/L Carbon Dioxide (22-32) mmol/L BUN (7-17) mg/dL Creatinine (0.52-1.04) mg/dL Estimated GFR (>60) mL/min BUN/Creatinine Ratio (6-22) Glucose (80-110) mg/dL Lactate 2.8 H (0.7-2.1) mmol/L Calcium (8.4-10.2) mg/dL Total Bilirubin (0.2-1.3) mg/dL AST (14-36) IU/L ALT (<35) IU/L Alkaline Phosphatase (38-126) U/L Total Creatine Kinase (30-135) U/L CK-MB (CK-2) CK-MB (CK-2) Rel Index Troponin I (0.01-0.034) ng/mL NT-Pro-B Natriuret Pep (<125) pg/mL Total Protein (6.3-8.2) g/dL Albumin (3.5-5.0) g/dL Globulin (1.7-4.1) g/dL Albumin/Globulin Ratio (1.0-2.8) Lipase (23-300) U/L Procalcitonin (<0.5) ng/mL Urine Color Yellow Urine Appearance Clear Urine pH 5.0 (4.5-8.0) Ur Specific [place] 1.015 (1.000-1.035) Urine Protein Trace H (Negative) Urine Glucose (UA) Negative (Negative) g/dL Urine Ketones Trace H (NEGATIVE) Urine Occult Blood Negative (Negative) Urine Nitrate Negative (Negative) Urine Bilirubin 2+ H (NEGATIVE) Ur Bilirubin Confirm Positive H (Negative) Urine Urobilinogen 1.0 (0.2) E.U./dL Ur Leukocyte Esterase Negative (NEGATIVE) Urine RBC None seen (0-5/HPF) Urine WBC 0-1/hpf (0-5/HPF) Amorphous Sediment 2+ Urine Bacteria None seen (None) Hyaline Casts 0-1/lpf (None) Ur Culture Indicated? Cult not indicated SARS-CoV-2 (PCR) (Negative) 05/06/22 Range/Units 13:30 WBC (4.5-11.0) X10^3/uL RBC (4.0-5.2) X10^6/uL Hgb (12.0-16.0) g/dL Hct (36-46) % MCV (80-100) fL MCH (26-34) PG MCHC (30-36) % RDW (11.6-14.8) % Plt Count (150-400) X10^3/uL Neut % (Auto) (50-75) % Lymph % (Auto) (25-40) % Caroline % (Auto) (3-14) % Eos % (Auto) (2-4) % Baso % (Auto) (0-2) % Neut # (Auto) (2360-7835) /uL Lymph # (Auto) (3964-2842) /uL Caroline # (Auto) (0-900) /uL Eos # (Auto) (0-450) /uL Baso # (Auto) (0-100) /uL PT (10.1-12.7) SECONDS INR (0.9-1.3) APTT (26-36) SECONDS Sodium 126 L (137-145) mmol/L Potassium 4.1 (3.4-5.1) mmol/L Chloride 101 (98-107) mmol/L Carbon Dioxide 13 L (22-32) mmol/L BUN 58 H (7-17) mg/dL Creatinine 1.16 H (0.52-1.04) mg/dL Estimated GFR 54 L (>60) mL/min BUN/Creatinine Ratio 50.0 H (6-22) Glucose 154 H (80-110) mg/dL Lactate (0.7-2.1) mmol/L Calcium 8.7 (8.4-10.2) mg/dL Total Bilirubin 5.6 H (0.2-1.3) mg/dL AST 63 H (14-36) IU/L ALT 38 H (<35) IU/L Alkaline Phosphatase 489 H (38-126) U/L Total Creatine Kinase (30-135) U/L CK-MB (CK-2) CK-MB (CK-2) Rel Index Troponin I < 0.012 (0.01-0.034) ng/mL NT-Pro-B Natriuret Pep 4330 H (<125) pg/mL Total Protein 5.7 L (6.3-8.2) g/dL Albumin 2.4 L (3.5-5.0) g/dL Globulin 3.3 (1.7-4.1) g/dL Albumin/Globulin Ratio 0.7 L (1.0-2.8) Lipase (23-300) U/L Procalcitonin (<0.5) ng/mL Urine Color Urine Appearance Urine pH (4.5-8.0) Ur Specific [place] (1.000-1.035) Urine Protein (Negative) Urine Glucose (UA) (Negative) g/dL Urine Ketones (NEGATIVE) Urine Occult Blood (Negative) Urine Nitrate (Negative) Urine Bilirubin (NEGATIVE) Ur Bilirubin Confirm (Negative) Urine Urobilinogen (0.2) E.U./dL Ur Leukocyte Esterase (NEGATIVE) Urine RBC (0-5/HPF) Urine WBC (0-5/HPF) Amorphous Sediment Urine Bacteria (None) Hyaline Casts (None) Ur Culture Indicated? SARS-CoV-2 (PCR) (Negative) Imaging Data Chest x-ray: Radiologist's Impression: PROCEDURE:? XR CHEST 1V ? INDICATIONS:? suspected sepsis ? TECHNIQUE:? One view of the chest was acquired.? ? COMPARISON:? [facility], CT, CT CHEST ABD PEL W CON, 03/11/2022, 10:17.? [facility], CR, XR CHEST 1V, 04/29/2022, 11:09. ? FINDINGS:? ? Surgical changes and devices:? Left chest Port-A-Cath. ? Lungs and pleura:? Lungs are clear.? No pleural effusions or pneumothorax.? ? Mediastinum:? Mediastinal contours appear normal.? Heart size is normal.? ? Bones and chest wall:? No suspicious bony lesions.? Overlying soft tissues appear unremarkable.? ? IMPRESSION:? No evidence acute pulmonary process. ? ? ? Dictated by: Juan Luis Stock M.D. on 05/06/2022 at 9:34 ?? CT scan - chest: Radiologist's Impression: PROCEDURE:? CT CHEST ABD PEL W CON ? INDICATIONS:? cancer weakness ? TECHNIQUE:? After the administration of intravenous contrast, 5 mm thick sections acquired from the lung apices to the symphysis.? 5 mm coronal and sagittal reformats were performed, with additional 7 mm MIP reformats through the lungs.? For radiation dose reduction, the following was used:? automated exposure control, adjustment of mA and/or kV according to patient size.? ? COMPARISON:? [facility] [place], CT, CT CHEST ABD PEL W CON, 03/11/2022, 10:17. ? FINDINGS:? Image quality:? Excellent.? ? CHEST:? Lungs and pleura:? Significant short interval increase in size of 2 right upper lobe pulmonary nodules.? 1. On previous image 110/5, there is a nodule measuring 8 x 5 mm.? On current i mage 91/5 it may measure as much as 8 x 12 mm.? It is difficult to separate this out from adjacent vascular structures.? 2. On image 100/5 of the prior study there was a 4 mm nodule in the right upper lobe.? On today's image 81/5 it measures 9 mm. ? Additionally, numerous bibasilar pulmonary nodules have developed in a short interval, consistent with rapid progression of metastatic disease.? On image 195 through 209, there are at least 6 new right lower lobe pulmonary nodules.? There multiple left lower lobe pulmonary nodules, as well.? ? No acute airspace opacities.? No pleural effusions or pneumothorax.? Central and peripheral airways appear patent and normal in caliber.? ? Mediastinum:? Heart size is normal.? No pericardial effusion.? A mass posterior to the inferior pulmonary veins is slightly increased in size.? It previously measured 2.5 x 1.2 cm.? It now measures 2.8 x 1.5 cm.? A lymph node anterior to the right main bronchus has significantly increased in size.? It was previously small.? It now measures 2.0 x 1.0 cm. ?Thoracic aorta and central pulmonary arteries are normal in size.? Esophagus is normal in caliber.? No hiatal hernia.? ? Chest wall:? No axillary or supraclavicular adenopathy by size criteria.? Thyroid gland is unremarkable as visualized .? ? ? ABDOMEN:? Solid organs:? Extensive neoplastic involvement of the liver, as before.? The appearance may be different simply secondary to differences in technique.? There is a large right infiltrative mass and small left lobe liver lesions.? There is cirrhotic change in the liver.? Gallbladder is small and shrunken with multiple gallstones noted.? Question cystic duct stone. .? Biliary system is non dilated.? Pancreas enhances normally.? Spleen is normal in size and enhancement.? No adrenal nodules.? Kidneys demonstrate normal size and enhancement, without hydronephrosis.? ? Peritoneum and bowel:? Extensive sigmoid diverticulosis and diffuse colonic diverticulosis..? Interval development of mild abdominal and moderate pelvic ascites. ? Nodes and vessels:? Left gastric and periportal adenopathy, as before.? Aorta and inferior vena cava are normal in size.? ? Miscellaneous:? No ventral hernias.? ? ? PELVIS:? Genitourinary:? Bladder wall thickness is normal.? ? Miscellaneous:? No inguinal hernias or adenopathy.? Uterus is surgically absent.? ? Bones:? No suspicious bony lesions.? No vertebral body compression fractures.? ? IMPRESSION:? ? 1. 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 ? 2. Cirrhosis. ? 3. Development of ascites, mild in the abdomen and moderate in the pelvis. ? 4. Rapid interval progression of pulmonary metastatic disease. ? 5. The gallbladder is small and shrunken and contains multiple gallstones.? There appears to potentially be a stone present in the cystic duct.? Patient is at risk for developing acute cholecystitis or choledochal stones.? As the gallbladder is currently cont racted, there is very unlikely acute cholecystitis at the present time. ? ? Dictated by: Juan Luis Stock M.D. on 05/06/2022 at 10:16? CXR #2: Radiologist's Impression: PROCEDURE:? XR CHEST 1V ? INDICATIONS:? Flu like symptoms ? TECHNIQUE:? One view of the chest was acquired.? ? COMPARISON:? [facility], CR, XR CHEST 1V, 05/06/2022, 9:09.? [facility], CR, XR CHEST 1V, 04/29/2022, 11:09. ? FINDINGS:? ? Surgical changes and devices:? Port-A-Cath from left-sided approach remains in normal position. ? Lungs and pleura:? Lungs are abnormal with a chronic mild interstitial prominence.? No pleural effusions or pneumothorax.? ? Mediastinum:? Mediastinal contours appear normal.? Heart size is normal.? ? Bones and chest wall:? No suspicious bony lesions.? Overlying soft tissues appear unremarkable.? ? IMPRESSION:? Source flu-like symptoms is not seen.? Chronic mild interstitial prominence, Port-A-Cath positioning normal. ? ? Dictated by: Min Stone M.D. on 05/06/2022 at 13:54 ? ? Approved by: Min Stone M.D. on 05/06/2022 at 13:54 ? ECG Data Interpretation: EKG 1. Sinus rhythm rate 73 CT interval 148 QRS 90 QTC 416 Atrial fibrillation rate [address] changes MDM Narrative Medical decision making narrative: Patient 62-year-old female history of newly diagnosed adenocarcinoma of the liver paroxysmal atrial fibrillation on Pradaxa presents today generalized weakn ess. Blood pressure slowly dropped while in the emergency department to the 70's she then flipped into AFib with RVR rate in 130s with blood pressure of 79. She does have leukocytosis of 15 with an elevated lactate of 3.3. Concerning for sepsis unclear infection site. She is given Zosyn and van comycin. Sepsis fluids ordered. Along with Levophed. Patient is also noted to have increasing bilirubin or last couple of days 5.3 today is 6.0 she has mildly elevated liver enzymes AST 63 ALT 38, lipase is 1300. CT does show cholelithiasis possible stone and cystic duct. Difficult to distinguish if right upper quadrant pain elevated labs are secondary to cholecystitis, choledocholithiasis, cholangitis versus worsening cancer. Other sources of infection she does have an ongoing buttock wound, possible port infection (although surrounding skin appears healthy) I discussed with Dr. Rhoades on-call surgeon, she has reviewed agrees probable and ascending cholangitis with benefit from GI evaluation not a surgical candidate. I spoke with Dr. Ceja on-call for provider group also request that patient be transferred for true ICU and intensive treatment. If unable to transfer than would consider admitting here. She is persistently hypotensive requiring escalating dose of Levophed and ongoing sepsis fluids. She does get a little bit more short of breath but not really requiring oxygen repeat chest x-ray does not show any worsening abnormality. She is maintained on maintenance fluids due to escalating dose Levophed she is started on vasopressin. She is in AFib with RVR. Heart rate is treated thought to be due to an underlying cause such as sepsis. Had family conversation and goals of care with patient. At this time she would like everything done along with her family. They all understand that she is in critical condition. Critical bed shortage Multiple hospitals called including [facility] [address] Armenta, railway engineer at [facility] updated on patient's symptoms test results kindly accepts patient. Critical Care Time Critical Care Time Critical Care Time: Yes Total Critical Care Time: 109 Attestation: The high probability of a clinically significant, sudden or life threatening deterioration of the [cardiovascular] system(s) required my full and direct attention, intervention and personal management. The aggregate critical care time was 109 minutes. This time is in addition to time spent performing reported procedures but includes the following: [x] Data Review and interpretation [x] Patient assessment and monitoring of vital signs [x] Documentation [x] Medication orders and management Discharge Plan Departure Patient Disposition: Admitted As Inpatient Clinical Impression: Sepsis
[2022-05-06 09:33] LABS: Creatine Kinase < 20 U/L (30-135)
--- NOTE | 2022-05-06 09:37 | DI.CT.S_ITS ---
PROCEDURE: CT CHEST ABD PEL W CON INDICATIONS: cancer weakness TECHNIQUE: After the administration of intravenous contrast, 5 mm thick sections acquired from the lung apices to the symphysis. 5 mm coronal and sagittal reformats were performed, with additional 7 mm MIP reformats through the lungs. For radiation dose reduction, the following was used: automated exposure control, adjustment of mA and/or kV according to patient size. COMPARISON: [facility], CT, CT CHEST ABD PEL W CON, 03/11/2022, 10:17. FINDINGS: Image quality: Excellent. CHEST: Lungs and pleura: Significant short interval increase in size of 2 right upper lobe pulmonary nodules. 1. On previous image 110/5, there is a nodule measuring 8 x 5 mm. On current image 91/5 it may measure as much as 8 x 12 mm. It is difficult to separate this out from adjacent vascular structures. 2. On image 100/5 of the prior study there was a 4 mm nodule in the right upper lobe. On today's image 81/5 it measures 9 mm. Additionally, numerous bibasilar pulmonary nodules have developed in a short interval, consistent with rapid progression of metastatic disease. On image 195 through 209, there are at least 6 new right lower lobe pulmonary nodules. There multiple left lower lobe pulmonary nodules, as well. No acute airspace opacities. No pleural effusions or pneumothorax. Central and peripheral airways appear patent and normal in caliber. Mediastinum: Heart size is normal. No pericardial effusion. A mass posterior to the inferior pulmonary veins is slightly increased in size. It previously measured 2.5 x 1.2 cm. It now measures 2.8 x 1.5 cm. A lymph node anterior to the right main bronchus has significantly increased in size. It was previously small. It now measures 2.0 x 1.0 cm. Thoracic aorta and central pulmonary arteries are normal in size. Esophagus is normal in caliber. No hiatal hernia. Chest wall: No axillary or supraclavicular adenopathy by size criteria. Thyroid gland is unremarkable as visualized . ABDOMEN: Solid organs: Extensive neoplastic involvement of the liver, as before. The appearance may be different simply secondary to differences in technique. There is a large right infiltrative mass and small left lobe liver lesions. There is cirrhotic change in the liver. Gallbladder is small and shrunken with multiple gallstones noted. Question cystic duct stone. . Biliary system is non dilated. Pancreas enhances normally. Spleen is normal in size and enhancement. No adrenal nodules. Kidneys demonstrate normal size and enhancement, without hydronephrosis. Peritoneum and bowel: Extensive sigmoid diverticulosis and diffuse colonic diverticulosis.. Interval development of mild abdominal and moderate pelvic ascites. Nodes and vessels: Left gastric and periportal adenopathy, as before. Aorta and inferior vena cava are normal in size. Miscellaneous: No ventral hernias. PELVIS: Genitourinary: Bladder wall thickness is normal. Miscellaneous: No inguinal hernias or adenopathy. Uterus is surgically absent. Bones: No suspicious bony lesions. No vertebral body compression fractures. IMPRESSION: 1. 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 2. Cirrhosis. 3. Development of ascites, mild in the abdomen and moderate in the pelvis. 4. Rapid interval progression of pulmonary metastatic disease. 5. The gallbladder is small and shrunken and contains multiple gallstones. There appears to potentially be a stone present in the cystic duct. Patient is at risk for developing acute cholecystitis or choledochal stones. As the gallbladder is currently contracted, there is very unlikely acute cholecystitis at the present time. Dictated by: Juan Luis Stock M.D. on 05/06/2022 at 10:16 Approved by: Juan Luis Stock M.D. on 05/06/2022 at 10:29
[2022-05-06] MEDS: ONDANSETRON 4 MG/2 ML INJ IV ×3 (09:40→19:07)
[2022-05-06] MEDS: HYDROMORPHONE 0.5 MG INJ IV ×4 (09:41→19:01)
[2022-05-06 10:04] LABS: NT-proBNP (BNP-Adult 18+) 4680 pg/mL (<125); Troponin I < 0.012 ng/mL (0.01-0.034)
[2022-05-06] MEDS: NOREPINEPHRINE BITARTRATE/D5W 4 MG/250 ML PLAST..BAG 30 MG IV (10:31)
[2022-05-06] MEDS: SODIUM CHLORIDE 0.9% 796.05 ML IV (10:31)
[2022-05-06] MEDS: VANCOMYCIN 1,250 MG/250 ML PIGGYBACK 250 MG IV (10:38)
[2022-05-06 10:45] LABS: HEMOLYSIS 34 (0-50)
[2022-05-06] MEDS: SODIUM CHLORIDE 0.9% 1,000 ML 75 ML IV (10:47)
[2022-05-06] MEDS: PIPERACILLIN/TAZO 4.5 GM in SODIUM CHLORIDE 0.9% 100 ML IV (10:47)
[2022-05-06 10:50] LABS: Procalcitonin 9.31 ng/mL (<0.5)
[2022-05-06 11:13] LABS: Reflexed Lactate in 2 Hours Y
--- NOTE | 2022-05-06 11:19 | PC.NURSE ---
running note: Pt became hypotensive while in [facility]R. Cap refill upon admit was @ 2sec. At point of initial hypotension was 4sec. Provider aware. New orders obtained. Remained 1:1 at bedside. Daughter Summer at bedside and up to date on plan of care w/ agreement.
[2022-05-06 11:23] LABS: Appearance Urine UA CLEAR; Bilirubin Urine UA 2+ (NEGATIVE); Color Urine UA YELLOW; Glucose Urine UA NEGATIVE (Negative); Ketones Urine UA TRACE (NEGATIVE); Leukocyte Esterase Urine UA NEGATIVE (NEGATIVE); Nitrite Urine UA NEGATIVE (Negative); Occult Blood Urine UA NEGATIVE (Negative); Protein Urine UA TRACE (Negative); Specific Gravity Urine UA 1.015 (1.000-1.035)
[2022-05-06 11:28] LABS: Ictotest Urine Positive (Negative)
[2022-05-06 11:32] LABS: RBC Urine None Seen (0-5/HPF); WBC Urine 0-1/HPF (0-5/HPF)
[2022-05-06 11:33] LABS: Amorphous Sediment Urine 2+; Bacteria Urine None Seen; Culture Indicated Urine Cult Not Indicated; Hyaline Casts Urine 0-1/LPF
--- NOTE | 2022-05-06 11:36 | PC.NURSE ---
Pt's daughter updated on critical nature of mother. She verbalized understanding. Pt is a full code. I encouraged her to call family for support.
[2022-05-06 11:41] LABS: COVID19 -Nasal RAPID Negative (Negative)
[2022-05-06 11:48] LABS: Lactate (Lactic Acid) 2.8 mmol/L (0.7-2.1)
--- NOTE | 2022-05-06 13:20 | DI.RAD.S_ITS ---
PROCEDURE: XR CHEST 1V INDICATIONS: Flu like symptoms TECHNIQUE: One view of the chest was acquired. COMPARISON: [facility], CR, XR CHEST 1V, 05/06/2022, 9:09. [facility], CR, XR CHEST 1V, 04/29/2022, 11:09. FINDINGS: Surgical changes and devices: Port-A-Cath from left-sided approach remains in normal position. Lungs and pleura: Lungs are abnormal with a chronic mild interstitial prominence. No pleural effusions or pneumothorax. Mediastinum: Mediastinal contours appear normal. Heart size is normal. Bones and chest wall: No suspicious bony lesions. Overlying soft tissues appear unremarkable. IMPRESSION: Source flu-like symptoms is not seen. Chronic mild interstitial prominence, Port-A-Cath positioning normal. Dictated by: Min Stone M.D. on 05/06/2022 at 13:54 Approved by: Min Stone M.D. on 05/06/2022 at 13:54
[2022-05-06 13:35] LABS: Reflexed Lactate in 2 Hours Y
[2022-05-06] MEDS: PIPERACILLIN/TAZO 3.375 GM in SODIUM CHLORIDE 0.9% 100 ML IV (13:35)
[2022-05-06 13:40] LABS: Add Manual Diff / Slide Review NO; Basophils Absolute Auto 100 /uL (0-100); Basophils Percent Auto 0.5 % (0-2); Eosinophils Absolute Auto 100 /uL (0-450); Eosinophils Percent Auto 0.5 % (2-4); Hematocrit 32.3 % (36-46); Hemoglobin 10.6 g/dL (12.0-16.0); Lymphocytes Absolute Auto 3400 /uL (1100-4500); Lymphocytes Percent Auto 20.2 % (25-40); Mean Corpuscular HGB Conc 32.9 % (30-36); Mean Corpuscular Hemoglobin 29.2 PG (26-34); Mean Corpuscular Volume 88.8 fL (80-100); Monocytes Absolute Auto 200 /uL (0-900); Monocytes Percent Auto 1.4 % (3-14); Neutrophils Absolute Auto 13100 /uL (1500-7000); Neutrophils Percent Auto 77.4 % (50-75); Platelet Count 286 X10^3/uL (150-400); Red Blood Cell Count 3.64 X10^6/uL (4.0-5.2); Red Cell Distribution Width 16.9 % (11.6-14.8); White Blood Cell Count 16.9 X10^3/uL (4.5-11.0)
--- NOTE | 2022-05-06 13:44 | PC.NURSE ---
This RN takes over care. Pt is resting with eyes closed. Responds to questions with some confusion and delay, but ultimately able to answer questions correctly. Alert to place, situation, and name. Pt appears mildly SOB with some but denies increased work of breathing. RR is 27, 95% on RA. Pt HR is irregular at 132 currently. Pt pain is 5/10. Pt family at bedside. Vasopressin is held at this time due to patient vitals. BP is 112/71. Provider aware. Norepinephrine 4mg in 250ml is running at 16 mcg/min per MAY. Encouraged to use call light for needs. Call light within reach. No new orders at this time.
[2022-05-06 13:59] LABS: Alanine Aminotransferase 38 IU/L (<35); Albumin 2.4 g/dL (3.5-5.0); Albumin Globulin Ratio 0.7 (1.0-2.8); Alkaline Phosphatase 489 U/L (38-126); Aspartate Aminotransferase 63 IU/L (14-36); Bilirubin Total 5.6 mg/dL (0.2-1.3); Blood Urea Nitrogen 58 mg/dL (7-17); Calcium 8.7 mg/dL (8.4-10.2); Carbon Dioxide 13 mmol/L (22-32); Chloride 101 mmol/L (98-107); Estimated Glomerular Filt Rate 54 mL/min (>60); Globulin 3.3 g/dL (1.7-4.1); Glucose 154 mg/dL (80-110); HEMOLYSIS < 15 (0-50); Potassium 4.1 mmol/L (3.4-5.1); Sodium 126 mmol/L (137-145); Total Protein 5.7 g/dL (6.3-8.2)
--- NOTE | 2022-05-06 14:05 | PC.NURSE ---
Addendum entered by Juan Schreiber R.N. 05/06/22 14:12: Provider verbal order for Normal Saline maintenance fluids to titrate up to 125 mls/hr of 1000 mg. Per verbal order this RN increased Normal Saline from 75 mls/hr to 125 mls/hr. Original Note: Provider at bedside updating family. Provider made aware of patient blood pressure. Vasopressin still to be held at this time. This RN called pharmacist Aniya to confirm OK to run norepinephrine at 16 mcg/min. Confirmed OK and is OK to titrate up even though not listed out on protocol.
[2022-05-06 14:11] LABS: NT-proBNP (BNP-Adult 18+) 4330 pg/mL (<125); Troponin I < 0.012 ng/mL (0.01-0.034)
--- NOTE | 2022-05-06 14:52 | PC.NURSE ---
discussed w/ Dr. Dey. New orders for NS bolus and start Vasopressin now.
[2022-05-06] MEDS: VASOPRESSIN 40 UNIT in SODIUM CHLORIDE 0.9% 100 ML 4.5 UNIT IV (15:13)
[2022-05-06] MEDS: NOREPINEPHRINE BITARTRATE/D5W 4 MG/250 ML PLAST..BAG 60 MG IV (15:15)
--- NOTE | 2022-05-06 16:53 | PC.NURSE ---
[facility] declined transport due to low ceiling and cold temps. [facility] called, ETA [id number].
--- NOTE | 2022-05-06 17:58 | P.CONS_ITS ---
History of Present Illness Consult details Chief complaint: cancer pt yellow eyes/ LOC/pain everywhere Reason for consult: Right upper quadrant pain, sepsis Requesting provider: Shalonda Dey Narrative: This is a 8-year-old female who I know from a perirectal abscess drainage. It certainly is an unfortunate case that she has an advanced cancer in her liver. She presents to the emergency room today because she is having yellowing eyes more pain and decreased level of consciousness. In the emergency room she was found to be hypotensive and with several laboratory derangements consistent with sepsis. According to her daughter who is at bedside the perirectal abscess has not been much of an issue although she sometimes does have perirectal pain. Meds Home Medications and Allergies Home Medications Medication Instructions Recorded Confirmed Type omeprazole 40 mg capsule,delayed 40 mg PO BID #60 caps 03/22/20 05/06/22 Rx release atorvastatin 10 mg tablet 10 mg PO DAILY 03/02/22 05/06/22 History cholecalciferol (vitamin D3) 50 50 mcg PO DAILY 03/02/22 05/06/22 History mcg (2,000 unit) capsule metoprolol succinate 100 mg 100 mg PO BID 03/02/22 05/06/22 History tablet,extended release 24 hr spironolactone 25 mg tablet 25 mg PO BID 03/02/22 05/06/22 History hydromorphone 4 mg tablet 4 mg PO QID PRN Pain (Scale Score 04/04/22 05/06/22 History 7-10) dabigatran etexilate 150 mg 150 mg PO BID 04/05/22 05/06/22 History capsule (Pradaxa) metformin 1,000 mg tablet 1,000 mg PO BID #60 tabs 04/09/22 05/06/22 Rx fluconazole 100 mg tablet 100 mg PO DAILY 04/27/22 05/06/22 History (Diflucan) ondansetron 4 mg disintegrating 4 mg PO Q4HR PRN Nausea #30 tabs 04/27/22 05/06/22 Rx tablet folic acid 1 mg tablet 1 mg PO DAILY take while on Alimta 05/04/22 05/06/22 Rx chemo #30 tabs dexamethasone 4 mg tablet 4 mg PO BID 3 days #6 tabs 05/05/22 05/06/22 Rx sucralfate 1 gram tablet (Carafate) 1 g PO QID PRN gerd 05/06/22 05/06/22 History Allergies Allergy/AdvReac Type Severity Reaction Status Date / Time Sulfa (Sulfonamide Allergy Unknown Verified 05/06/22 09:10 Antibiotics) Exam Vital Signs (past 8 hours): - 05/06/22 10:08 05/06/22 10:08 05/06/22 10:10 Temperature Pulse Rate 77 76 Respiratory Rate 31 H 28 H Blood Pressure 79/52 L Pulse Oximetry 94 96 Oxygen Delivery Method Room Air 05/06/22 10:12 05/06/22 10:12 05/06/22 10:13 Temperature Pulse Rate 75 Respiratory Rate 27 H Blood Pressure 73/44 L 75/46 L Pulse Oximetry 95 Oxygen Delivery Method 05/06/22 10:13 05/06/22 10:14 05/06/22 10:15 Temperature Pulse Rate 75 75 74 Respiratory Rate 28 H 26 H 27 H Blood Pressure Pulse Oximetry 95 95 95 Oxygen Delivery Method Room Air 05/06/22 10:15 05/06/22 10:16 05/06/22 10:18 Temperature Pulse Rate 74 101 H Respiratory Rate 28 H 27 H Blood Pressure 76/50 L Pulse Oximetry 96 95 Oxygen Delivery Method 05/06/22 10:20 05/06/22 10:20 05/06/22 10:22 Temperature Pulse Rate 134 H 136 H Respiratory Rate 24 28 H Blood Pressure 75/51 L Pulse Oximetry 94 96 Oxygen Delivery Method 05/06/22 10:24 05/06/22 10:24 05/06/22 10:25 Temperature Pulse Rate 138 H Respiratory Rate 30 H Blood Pressure 89/52 L 79/54 L Pulse Oximetry 94 Oxygen Delivery Method 05/06/22 10:25 05/06/22 10:26 05/06/22 10:28 Temperature Pulse Rate 134 H 134 H 134 H Respiratory Rate 25 H 29 H 29 H Blood Pressure Pulse Oximetry 96 96 95 Oxygen Delivery Method 05/06/22 10:30 05/06/22 10:30 05/06/22 10:32 Temperature Pulse Rate 133 H 127 H Respiratory Rate 27 H 28 H Blood Pressure 78/63 L Pulse Oximetry 95 95 Oxygen Delivery Method 05/06/22 10:34 05/06/22 10:35 05/06/22 10:35 Temperature Pulse Rate 135 H 138 H Respiratory Rate 26 H 26 H Blood Pressure 85/62 L Pulse Oximetry 95 95 Oxygen Delivery Method 05/06/22 10:36 05/06/22 10:38 05/06/22 10:40 Temperature Pulse Rate 137 H 137 H 133 H Respiratory Rate 27 H 28 H 30 H Blood Pressure Pulse Oximetry 95 96 96 Oxygen Delivery Method 05/06/22 10:41 05/06/22 10:41 05/06/22 10:42 Temperature Pulse Rate 142 H 134 H Respiratory Rate 29 H 25 H Blood Pressure 94/75 Pulse Oximetry 98 98 Oxygen Delivery Method 05/06/22 10:44 05/06/22 10:45 05/06/22 10:45 Temperature Pulse Rate 139 H 139 H Respiratory Rate 26 H 29 H Blood Pressure 88/59 L Pulse Oximetry 96 96 Oxygen Delivery Method 05/06/22 10:46 05/06/22 10:48 05/06/22 10:50 Temperature Pulse Rate 140 H 137 H Respiratory Rate 30 H 28 H Blood Pressure 81/59 L Pulse Oximetry 96 95 Oxygen Delivery Method Room Air 05/06/22 10:50 05/06/22 10:52 05/06/22 10:54 Temperature Pulse Rate 135 H 136 H 132 H Respiratory Rate 29 H 29 H 27 H Blood Pressure Pulse Oximetry 95 96 96 Oxygen Delivery Method 05/06/22 10:55 05/06/22 10:55 05/06/22 10:56 Temperature Pulse Rate 136 H 135 H Respiratory Rate 27 H 28 H Blood Pressure 70/53 L Pulse Oximetry 95 96 Oxygen Delivery Method 05/06/22 10:58 05/06/22 11:00 05/06/22 11:02 Temperature Pulse Rate 138 H 138 H 130 H Respiratory Rate 30 H 27 H 28 H Blood Pressure Pulse Oximetry 96 96 97 Oxygen Delivery Method 05/06/22 11:04 05/06/22 11:05 05/06/22 11:05 Temperature Pulse Rate 131 H 140 H Respiratory Rate 28 H 27 H Blood Pressure 107/57 L Pulse Oximetry 97 97 Oxygen Delivery Method 05/06/22 11:06 05/06/22 11:08 05/06/22 11:10 Temperature Pulse Rate 137 H 134 H Respiratory Rate 28 H 28 H Blood Pressure 98/53 L Pulse Oximetry 96 97 Oxygen Delivery Method 05/06/22 11:10 05/06/22 11:12 05/06/22 11:14 Temperature Pulse Rate 134 H 137 H 136 H Respiratory Rate 29 H 27 H 28 H Blood Pressure Pulse Oximetry 96 96 96 Oxygen Delivery Method Room Air 05/06/22 11:16 05/06/22 11:18 05/06/22 11:20 Temperature Pulse Rate 139 H 137 H Respiratory Rate 28 H 28 H Blood Pressure 79/53 L Pulse Oximetry 96 Oxygen Delivery Method 05/06/22 11:20 05/06/22 11:22 05/06/22 11:24 Temperature 96.6 F L 96.6 F L Pulse Rate 133 H 136 H 136 H Respiratory Rate 28 H 23 27 H Blood Pressure Pulse Oximetry 95 96 97 Oxygen Delivery Method 05/06/22 11:25 05/06/22 11:25 05/06/22 11:26 Temperature 96.6 F L 96.6 F L Pulse Rate 130 H 136 H Respiratory Rate 28 H 27 H Blood Pressure 92/58 L Pulse Oximetry 96 96 Oxygen Delivery Method 05/06/22 11:28 05/06/22 11:30 05/06/22 11:30 Temperature 96.6 F L 96.6 F L Pulse Rate 141 H 139 H Respiratory Rate 25 H 14 Blood Pressure 110/66 Pulse Oximetry 96 96 Oxygen Delivery Method 05/06/22 11:32 05/06/22 11:34 05/06/22 11:35 Temperature 96.6 F L 96.6 F L Pulse Rate 143 H 135 H Respiratory Rate 23 25 H Blood Pressure 101/65 Pulse Oximetry 95 95 Oxygen Delivery Method Room Air 05/06/22 11:35 05/06/22 11:36 05/06/22 11:38 Temperature 96.6 F L 96.6 F L 96.6 F L Pulse Rate 135 H 136 H 134 H Respiratory Rate 24 28 H 26 H Blood Pressure Pulse Oximetry 95 95 95 Oxygen Delivery Method 05/06/22 11:40 05/06/22 11:41 05/06/22 11:41 Temperature 96.6 F L 96.6 F L Pulse Rate 136 H 139 H Respiratory Rate 27 H 29 H Blood Pressure 68/47 L Pulse Oximetry 96 96 Oxygen Delivery Method 05/06/22 11:42 05/06/22 11:44 05/06/22 11:44 Temperature 96.6 F L 96.6 F L Pulse Rate 138 H 138 H Respiratory Rate 24 26 H Blood Pressure 79/50 L Pulse Oximetry 96 96 Oxygen Delivery Method 05/06/22 11:46 05/06/22 11:47 05/06/22 11:47 Temperature 96.6 F L 96.6 F L Pulse Rate 137 H 143 H Respiratory Rate 29 H 28 H Blood Pressure 99/68 Pulse Oximetry 96 96 Oxygen Delivery Method Room Air 05/06/22 11:48 05/06/22 11:50 05/06/22 11:50 Temperature 96.6 F L 96.6 F L Pulse Rate 143 H 132 H Respiratory Rate 29 H 28 H Blood Pressure 111/75 Pulse Oximetry 95 95 Oxygen Delivery Method 05/06/22 11:52 05/06/22 11:54 05/06/22 11:55 Temperature 96.6 F L 96.6 F L Pulse Rate 137 H 143 H Respiratory Rate 27 H 26 H Blood Pressure 108/72 Pulse Oximetry 95 94 Oxygen Delivery Method 05/06/22 11:55 05/06/22 11:56 05/06/22 11:58 Temperature 96.6 F L 96.6 F L 96.6 F L Pulse Rate 136 H 135 H 142 H Respiratory Rate 26 H 26 H 26 H Blood Pressure Pulse Oximetry 95 95 95 Oxygen Delivery Method Room Air 05/06/22 12:00 05/06/22 12:00 05/06/22 12:02 Temperature 96.6 F L 96.6 F L Pulse Rate 138 H 134 H Respiratory Rate 26 H 27 H Blood Pressure 107/66 Pulse Oximetry 95 95 Oxygen Delivery Method 05/06/22 12:04 05/06/22 12:05 05/06/22 12:05 Temperature 96.6 F L 96.6 F L Pulse Rate 142 H 142 H Respiratory Rate 25 H 26 H Blood Pressure 90/69 Pulse Oximetry 95 95 Oxygen Delivery Method 05/06/22 12:06 05/06/22 12:08 05/06/22 12:10 Temperature 96.6 F L 96.6 F L Pulse Rate 140 H 131 H Respiratory Rate 26 H 28 H Blood Pressure 98/77 Pulse Oximetry 96 95 Oxygen Delivery Method 05/06/22 12:10 05/06/22 12:12 05/06/22 12:14 Temperature 96.6 F L 96.6 F L 96.6 F L Pulse Rate 142 H 137 H 145 H Respiratory Rate 26 H 26 H 25 H Blood Pressure Pulse Oximetry 94 94 95 Oxygen Delivery Method 05/06/22 12:15 05/06/22 12:15 05/06/22 12:16 Temperature 96.6 F L 96.6 F L Pulse Rate 139 H 139 H Respiratory Rate 26 H 27 H Blood Pressure 99/80 Pulse Oximetry 94 94 Oxygen Delivery Method Room Air 05/06/22 12:18 05/06/22 12:20 05/06/22 12:20 Temperature 96.8 F L 96.8 F L Pulse Rate 134 H 143 H Respiratory Rate 25 H 25 H Blood Pressure 108/75 Pulse Oximetry 94 94 Oxygen Delivery Method 05/06/22 12:22 05/06/22 12:24 05/06/22 12:25 Temperature 96.8 F L 96.8 F L Pulse Rate 146 H 145 H Respiratory Rate 31 H 31 H Blood Pressure 117/69 Pulse Oximetry 96 95 Oxygen Delivery Method 05/06/22 12:25 05/06/22 12:26 05/06/22 12:28 Temperature 96.8 F L 96.8 F L 96.8 F L Pulse Rate 136 H 145 H 144 H Respiratory Rate 30 H 29 H 32 H Blood Pressure Pulse Oximetry 95 95 96 Oxygen Delivery Method 05/06/22 12:30 05/06/22 12:30 05/06/22 12:32 Temperature 96.8 F L 96.8 F L Pulse Rate 146 H 144 H Respiratory Rate 29 H 32 H Blood Pressure 120/65 Pulse Oximetry 95 95 Oxygen Delivery Method 05/06/22 12:34 05/06/22 12:35 05/06/22 12:35 Temperature 96.8 F L 96.8 F L Pulse Rate 148 H 145 H Respiratory Rate 29 H 28 H Blood Pressure 122/79 Pulse Oximetry 95 95 Oxygen Delivery Method 05/06/22 12:36 05/06/22 12:38 05/06/22 12:40 Temperature 96.8 F L 96.8 F L Pulse Rate 145 H 145 H Respiratory Rate 29 H 28 H Blood Pressure 101/74 Pulse Oximetry 95 95 Oxygen Delivery Method 05/06/22 12:40 05/06/22 12:42 05/06/22 12:44 Temperature 96.8 F L 96.8 F L 96.8 F L Pulse Rate 141 H 143 H 134 H Respiratory Rate 29 H 26 H 27 H Blood Pressure Pulse Oximetry 96 95 94 Oxygen Delivery Method 05/06/22 12:45 05/06/22 12:45 05/06/22 12:46 Temperature 96.8 F L 96.8 F L Pulse Rate 148 H 141 H Respiratory Rate 27 H 26 H Blood Pressure 91/76 Pulse Oximetry 94 94 Oxygen Delivery Method 05/06/22 12:48 05/06/22 12:50 05/06/22 12:51 Temperature 96.8 F L 96.8 F L Pulse Rate 140 H 137 H Respiratory Rate 27 H 26 H Blood Pressure 105/62 Pulse Oximetry 94 93 Oxygen Delivery Method 05/06/22 12:51 05/06/22 12:52 05/06/22 12:54 Temperature 96.8 F L 96.8 F L 96.6 F L Pulse Rate 142 H 143 H 140 H Respiratory Rate 23 26 H 27 H Blood Pressure Pulse Oximetry 96 96 95 Oxygen Delivery Method 05/06/22 12:56 05/06/22 12:58 05/06/22 13:00 Temperature 96.6 F L 96.6 F L Pulse Rate 141 H 143 H Respiratory Rate 28 H 26 H Blood Pressure 95/60 Pulse Oximetry 95 95 Oxygen Delivery Method 05/06/22 13:00 05/06/22 13:02 05/06/22 13:04 Temperature 96.6 F L 96.6 F L 96.6 F L Pulse Rate 144 H 144 H 141 H Respiratory Rate 26 H 27 H 25 H Blood Pressure Pulse Oximetry 93 95 95 Oxygen Delivery Method 05/06/22 13:05 05/06/22 13:05 05/06/22 13:06 Temperature 96.6 F L 96.6 F L Pulse Rate 144 H 141 H Respiratory Rate 29 H 28 H Blood Pressure 102/78 Pulse Oximetry 96 95 Oxygen Delivery Method 05/06/22 13:08 05/06/22 13:10 05/06/22 13:10 Temperature 96.6 F L 96.6 F L Pulse Rate 140 H 130 H Respiratory Rate 28 H 26 H Blood Pressure 96/74 Pulse Oximetry 95 95 Oxygen Delivery Method Room Air 05/06/22 13:16 05/06/22 13:18 05/06/22 13:20 Temperature 96.6 F L 96.6 F L Pulse Rate 142 H 143 H Respiratory Rate 32 H 26 H Blood Pressure 99/62 Pulse Oximetry 94 95 Oxygen Delivery Method 05/06/22 13:20 05/06/22 13:22 05/06/22 13:24 Temperature 96.6 F L 96.6 F L 96.8 F L Pulse Rate 141 H 145 H 142 H Respiratory Rate 27 H 28 H 27 H Blood Pressure Pulse Oximetry 95 95 95 Oxygen Delivery Method 05/06/22 13:26 05/06/22 13:28 05/06/22 13:30 Temperature 96.6 F L 96.6 F L 96.8 F L Pulse Rate 145 H 146 H 142 H Respiratory Rate 28 H 26 H 31 H Blood Pressure Pulse Oximetry 97 95 96 Oxygen Delivery Method 05/06/22 13:31 05/06/22 13:31 05/06/22 13:32 Temperature 96.8 F L 96.6 F L Pulse Rate 150 H 145 H Respiratory Rate 32 H 38 H Blood Pressure 118/80 Pulse Oximetry 96 96 Oxygen Delivery Method 05/06/22 13:34 05/06/22 13:35 05/06/22 13:35 Temperature 96.8 F L 96.8 F L Pulse Rate 138 H 142 H Respiratory Rate 31 H 29 H Blood Pressure 100/71 Pulse Oximetry 96 95 Oxygen Delivery Method 05/06/22 13:36 05/06/22 13:38 05/06/22 13:40 Temperature 96.8 F L 96.8 F L Pulse Rate 139 H 145 H Respiratory Rate 31 H 26 H Blood Pressure 109/76 Pulse Oximetry 96 95 Oxygen Delivery Method 05/06/22 13:40 05/06/22 13:42 05/06/22 13:44 Temperature 96.8 F L 96.8 F L 96.8 F L Pulse Rate 137 H 145 H 143 H Respiratory Rate 27 H 25 H 26 H Blood Pressure Pulse Oximetry 95 96 95 Oxygen Delivery Method 05/06/22 13:45 05/06/22 13:45 05/06/22 13:46 Temperature 96.8 F L 96.8 F L Pulse Rate 135 H 144 H Respiratory Rate 25 H 26 H Blood Pressure 112/71 Pulse Oximetry 95 96 Oxygen Delivery Method 05/06/22 13:48 05/06/22 13:50 05/06/22 13:50 Temperature 96.8 F L 96.8 F L Pulse Rate 134 H 145 H Respiratory Rate 28 H 27 H Blood Pressure 106/69 Pulse Oximetry 96 96 Oxygen Delivery Method 05/06/22 13:52 05/06/22 13:54 05/06/22 13:55 Temperature 96.8 F L 96.8 F L Pulse Rate 139 H 140 H Respiratory Rate 28 H 30 H Blood Pressure 103/74 Pulse Oximetry 96 96 Oxygen Delivery Method 05/06/22 13:55 05/06/22 13:56 05/06/22 13:58 Temperature 96.8 F L 96.8 F L 96.8 F L Pulse Rate 150 H 141 H 139 H Respiratory Rate 28 H 29 H 31 H Blood Pressure Pulse Oximetry 97 96 96 Oxygen Delivery Method 05/06/22 14:00 05/06/22 14:00 05/06/22 14:02 Temperature 96.8 F L 96.8 F L Pulse Rate 144 H 138 H Respiratory Rate 29 H 28 H Blood Pressure 103/76 Pulse Oximetry 96 96 Oxygen Delivery Method 05/06/22 14:04 05/06/22 14:05 05/06/22 14:05 Temperature 96.8 F L 96.8 F L Pulse Rate 151 H 150 H Respiratory Rate 24 25 H Blood Pressure 99/73 Pulse Oximetry 96 96 Oxygen Delivery Method 05/06/22 14:06 05/06/22 14:08 05/06/22 14:10 Temperature 96.8 F L 96.8 F L 96.8 F L Pulse Rate 148 H 147 H 142 H Respiratory Rate 28 H 25 H 31 H Blood Pressure Pulse Oximetry 96 96 97 Oxygen Delivery Method 05/06/22 14:11 05/06/22 14:11 05/06/22 14:12 Temperature 96.8 F L 96.8 F L Pulse Rate 151 H 143 H Respiratory Rate 25 H 25 H Blood Pressure 106/73 Pulse Oximetry 95 97 Oxygen Delivery Method 05/06/22 14:14 05/06/22 14:15 05/06/22 14:15 Temperature 96.8 F L 96.8 F L Pulse Rate 138 H 142 H Respiratory Rate 28 H 27 H Blood Pressure 98/75 Pulse Oximetry 96 96 Oxygen Delivery Method Room Air 05/06/22 14:16 05/06/22 14:18 05/06/22 14:20 Temperature 96.8 F L 96.8 F L Pulse Rate 146 H 143 H Respiratory Rate 35 H 26 H Blood Pressure 95/68 Pulse Oximetry 95 95 Oxygen Delivery Method 05/06/22 14:20 03/03/23 14:22 05/06/22 14:24 Temperature 96.8 F L 96.8 F L 96.8 F L Pulse Rate 133 H 143 H 139 H Respiratory Rate 25 H 26 H 25 H Blood Pressure Pulse Oximetry 95 96 95 Oxygen Delivery Method 05/06/22 14:25 05/06/22 14:25 05/06/22 14:26 Temperature 96.8 F L 96.8 F L Pulse Rate 137 H 131 H Respiratory Rate 24 24 Blood Pressure 92/54 L Pulse Oximetry 95 96 Oxygen Delivery Method 05/06/22 14:28 05/06/22 14:30 05/06/22 14:30 Temperature 96.8 F L 96.8 F L Pulse Rate 129 H 137 H Respiratory Rate 24 25 H Blood Pressure 90/69 Pulse Oximetry 95 95 Oxygen Delivery Method 05/06/22 14:32 05/06/22 14:34 05/06/22 14:35 Temperature 96.8 F L 96.8 F L Pulse Rate 142 H 135 H Respiratory Rate 24 23 Blood Pressure 96/68 Pulse Oximetry 96 95 Oxygen Delivery Method 05/06/22 14:35 05/06/22 14:36 05/06/22 14:38 Temperature 96.8 F L 96.8 F L 96.8 F L Pulse Rate 132 H 141 H 137 H Respiratory Rate 25 H 23 23 Blood Pressure Pulse Oximetry 95 96 95 Oxygen Delivery Method 05/06/22 14:40 05/06/22 14:40 05/06/22 14:42 Temperature 96.8 F L 96.8 F L Pulse Rate 135 H 138 H Respiratory Rate 26 H 24 Blood Pressure 94/57 L Pulse Oximetry 96 96 Oxygen Delivery Method 05/06/22 14:44 05/06/22 14:45 05/06/22 14:45 Temperature 96.8 F L 96.8 F L Pulse Rate 133 H 142 H Respiratory Rate 24 24 Blood Pressure 95/62 Pulse Oximetry 96 96 Oxygen Delivery Method 05/06/22 14:46 05/06/22 14:48 05/06/22 14:50 Temperature 96.8 F L 96.8 F L Pulse Rate 138 H 135 H Respiratory Rate 25 H 24 Blood Pressure 91/61 Pulse Oximetry 96 95 Oxygen Delivery Method Room Air 05/06/22 14:50 05/06/22 14:52 05/06/22 14:54 Temperature 96.8 F L 96.8 F L 96.8 F L Pulse Rate 136 H 131 H 145 H Respiratory Rate 25 H 24 23 Blood Pressure Pulse Oximetry 95 95 95 Oxygen Delivery Method 05/06/22 14:55 05/06/22 14:55 05/06/22 14:56 Temperature 96.8 F L 96.6 F L Pulse Rate 140 H 134 H Respiratory Rate 23 23 Blood Pressure 98/76 Pulse Oximetry 96 95 Oxygen Delivery Method 05/06/22 14:58 05/06/22 15:00 05/06/22 15:00 Temperature 96.6 F L 96.6 F L Pulse Rate 137 H 134 H Respiratory Rate 24 24 Blood Pressure 99/75 Pulse Oximetry 96 95 Oxygen Delivery Method 05/06/22 15:02 05/06/22 15:04 05/06/22 15:05 Temperature 96.6 F L 96.6 F L Pulse Rate 141 H 134 H Respiratory Rate 28 H 25 H Blood Pressure 91/62 Pulse Oximetry 96 95 Oxygen Delivery Method 05/06/22 15:05 05/06/22 15:06 05/06/22 15:08 Temperature 96.6 F L 96.6 F L 96.6 F L Pulse Rate 137 H 136 H 132 H Respiratory Rate 27 H 25 H 28 H Blood Pressure Pulse Oximetry 94 95 96 Oxygen Delivery Method 05/06/22 15:10 05/06/22 15:12 05/06/22 15:13 Temperature 96.6 F L 96.6 F L Pulse Rate 137 H 136 H Respiratory Rate 30 H 26 H Blood Pressure 110/82 Pulse Oximetry 95 96 Oxygen Delivery Method Room Air 05/06/22 15:13 05/06/22 15:14 05/06/22 15:15 Temperature 96.6 F L 96.6 F L Pulse Rate 142 H 131 H Respiratory Rate 26 H 26 H Blood Pressure 108/79 Pulse Oximetry 96 96 Oxygen Delivery Method 05/06/22 15:15 05/06/22 15:16 05/06/22 15:18 Temperature 96.6 F L 96.6 F L 96.6 F L Pulse Rate 134 H 121 H 130 H Respiratory Rate 25 H 25 H 25 H Blood Pressure Pulse Oximetry 96 96 95 Oxygen Delivery Method 05/06/22 15:20 05/06/22 15:20 05/06/22 15:22 Temperature 96.6 F L 96.6 F L Pulse Rate 133 H 128 H Respiratory Rate 25 H 26 H Blood Pressure 110/81 Pulse Oximetry 96 96 Oxygen Delivery Method 05/06/22 15:24 05/06/22 15:25 05/06/22 15:25 Temperature 96.6 F L 96.6 F L Pulse Rate 132 H 134 H Respiratory Rate 25 H 23 Blood Pressure 109/89 Pulse Oximetry 96 95 Oxygen Delivery Method 05/06/22 15:26 05/06/22 15:28 05/06/22 15:30 Temperature 96.6 F L 96.6 F L Pulse Rate 130 H 134 H Respiratory Rate 24 22 Blood Pressure 119/81 Pulse Oximetry 95 95 Oxygen Delivery Method 05/06/22 15:30 05/06/22 15:32 05/06/22 15:34 Temperature 96.6 F L 96.6 F L 96.6 F L Pulse Rate 131 H 129 H 124 H Respiratory Rate 22 22 20 Blood Pressure Pulse Oximetry 94 95 95 Oxygen Delivery Method 05/06/22 15:35 05/06/22 15:35 05/06/22 15:36 Temperature 96.6 F L 96.6 F L Pulse Rate 135 H 122 H Respiratory Rate 21 20 Blood Pressure 104/77 Pulse Oximetry 95 96 Oxygen Delivery Method 05/06/22 15:38 05/06/22 15:40 05/06/22 15:41 Temperature 96.6 F L 96.6 F L Pulse Rate 128 H 132 H Respiratory Rate 20 22 Blood Pressure 122/80 Pulse Oximetry 95 95 Oxygen Delivery Method 05/06/22 15:41 05/06/22 15:42 05/06/22 15:44 Temperature 96.6 F L 96.6 F L 96.6 F L Pulse Rate 128 H 138 H 140 H Respiratory Rate 22 Blood Pressure Pulse Oximetry 95 94 95 Oxygen Delivery Method 05/06/22 15:45 05/06/22 15:45 05/06/22 15:46 Temperature 96.6 F L 96.6 F L Pulse Rate 129 H 131 H Respiratory Rate 25 H 24 Blood Pressure 118/78 Pulse Oximetry 94 95 Oxygen Delivery Method 05/06/22 15:48 05/06/22 15:50 05/06/22 15:50 Temperature 96.6 F L 96.6 F L Pulse Rate 135 H 128 H Respiratory Rate 27 H 24 Blood Pressure 115/84 Pulse Oximetry 95 95 Oxygen Delivery Method 05/06/22 15:52 05/06/22 15:54 05/06/22 15:55 Temperature 96.6 F L 96.6 F L Pulse Rate 125 H 129 H Respiratory Rate 24 24 Blood Pressure 122/85 Pulse Oximetry 95 97 Oxygen Delivery Method 05/06/22 15:55 05/06/22 15:56 05/06/22 15:58 Temperature 96.6 F L 96.6 F L 96.6 F L Pulse Rate 133 H 140 H 133 H Respiratory Rate 25 H 26 H 22 Blood Pressure Pulse Oximetry 95 95 95 Oxygen Delivery Method 05/06/22 16:00 05/06/22 16:00 05/06/22 16:02 Temperature 96.6 F L 96.6 F L Pulse Rate 127 H 126 H Respiratory Rate 23 24 Blood Pressure 114/83 Pulse Oximetry 95 95 Oxygen Delivery Method 05/06/22 16:04 05/06/22 16:05 05/06/22 16:05 Temperature 96.6 F L 96.6 F L Pulse Rate 127 H 131 H Respiratory Rate 23 22 Blood Pressure 105/82 Pulse Oximetry 95 95 Oxygen Delivery Method 05/06/22 16:06 05/06/22 16:08 05/06/22 16:10 Temperature 96.6 F L 96.6 F L Pulse Rate 130 H 133 H Respiratory Rate 23 26 H Blood Pressure 107/86 Pulse Oximetry 95 97 Oxygen Delivery Method 05/06/22 16:10 05/06/22 16:12 05/06/22 16:14 Temperature 96.6 F L 96.6 F L 96.6 F L Pulse Rate 136 H 132 H 137 H Respiratory Rate 24 24 30 H Blood Pressure Pulse Oximetry 96 96 96 Oxygen Delivery Method Room Air 05/06/22 16:16 05/06/22 16:16 05/06/22 16:18 Temperature 96.6 F L 96.6 F L Pulse Rate 141 H 129 H Respiratory Rate 25 H 24 Blood Pressure 124/81 Pulse Oximetry 92 96 Oxygen Delivery Method 05/06/22 16:20 05/06/22 16:20 05/06/22 16:22 Temperature 96.6 F L 96.6 F L Pulse Rate 134 H 126 H Respiratory Rate 28 H 25 H Blood Pressure 127/92 H Pulse Oximetry 96 96 Oxygen Delivery Method 05/06/22 16:24 05/06/22 16:25 05/06/22 16:25 Temperature 96.6 F L 96.6 F L Pulse Rate 131 H 127 H Respiratory Rate 23 24 Blood Pressure 100/59 L Pulse Oximetry 95 95 Oxygen Delivery Method 05/06/22 16:26 05/06/22 16:28 05/06/22 16:30 Temperature 96.6 F L 96.6 F L Pulse Rate 128 H 135 H Respiratory Rate 22 26 H Blood Pressure 117/78 Pulse Oximetry 96 95 Oxygen Delivery Method 05/06/22 16:30 05/06/22 16:32 05/06/22 16:34 Temperature 96.6 F L 96.6 F L 96.6 F L Pulse Rate 127 H 125 H 131 H Respiratory Rate 23 23 22 Blood Pressure Pulse Oximetry 96 96 96 Oxygen Delivery Method Room Air 05/06/22 16:35 05/06/22 16:35 05/06/22 16:36 Temperature 96.8 F L 96.8 F L Pulse Rate 124 H 131 H Respiratory Rate 24 23 Blood Pressure 109/69 Pulse Oximetry 96 96 Oxygen Delivery Method 05/06/22 16:38 05/06/22 16:40 05/06/22 16:40 Temperature 96.8 F L 96.8 F L Pulse Rate 133 H 134 H Respiratory Rate 27 H 27 H Blood Pressure 115/83 Pulse Oximetry 97 96 Oxygen Delivery Method 05/06/22 16:42 05/06/22 16:44 05/06/22 16:46 Temperature 96.8 F L 96.8 F L 96.8 F L Pulse Rate 136 H 134 H 130 H Respiratory Rate 30 H 31 H 25 H Blood Pressure Pulse Oximetry 97 97 97 Oxygen Delivery Method 05/06/22 16:48 05/06/22 16:50 05/06/22 16:50 Temperature 96.8 F L 96.8 F L Pulse Rate 127 H 126 H Respiratory Rate 24 24 Blood Pressure 110/75 Pulse Oximetry 96 96 Oxygen Delivery Method 05/06/22 16:52 05/06/22 16:55 05/06/22 16:55 Temperature 96.8 F L 96.8 F L Pulse Rate 128 H 127 H Respiratory Rate 23 22 Blood Pressure 110/76 Pulse Oximetry 96 96 Oxygen Delivery Method Room Air 05/06/22 17:00 05/06/22 17:00 05/06/22 17:12 Temperature 96.8 F L Pulse Rate 134 H Respiratory Rate 33 H Blood Pressure 115/90 107/65 Pulse Oximetry 96 Oxygen Delivery Method Room Air 05/06/22 17:12 05/06/22 17:15 05/06/22 17:16 Temperature Pulse Rate 137 H 126 H Respiratory Rate 27 H 26 H Blood Pressure 103/72 Pulse Oximetry 95 96 Oxygen Delivery Method 05/06/22 17:16 05/06/22 17:30 05/06/22 17:30 Temperature Pulse Rate 129 H 140 H Respiratory Rate 22 29 H Blood Pressure 114/75 Pulse Oximetry 96 97 Oxygen Delivery Method Room Air 05/06/22 17:45 Temperature Pulse Rate 128 H Respiratory Rate 25 H Blood Pressure Pulse Oximetry 96 Oxygen Delivery Method Room Air Oxygen Delivery Method Room Air Narrative Exam Narrative: Ms. Mendoza is supine in bed and looks sleepy. She does not look like she is in acute distress but is listless. Her scleral icterus GI are yellow and her skin has a yellowish hue Her abdomen is distended and tender in the right upper quadrant Her perirectal area reveals a well healing open abscess cavity. Digital rectal exam was performed and the patient was quite tender with rectal exam, however I was unable to see any pathology externally and the exam was limited because of pain. There was no mass or stricture in the anal canal Objective Labs 05/06/22 13:30 05/06/22 13:30 Labs: Laboratory Results - last 24 hr 05/06/22 05/06/22 05/06/22 09:05 09:05 09:05 WBC 15.2 H RBC 3.81 L Hgb 11.1 L Hct 33.3 L MCV 87.4 MCH 29.0 MCHC 33.2 RDW 16.6 H Plt Count 252 Neut % (Auto) 82.9 H Lymph % (Auto) 13.4 L Crawford % (Auto) 2.5 L Eos % (Auto) 0.9 L Baso % (Auto) 0.3 Neut # (Auto) 04521 H Lymph # (Auto) 2000 Crawford # (Auto) 400 Eos # (Auto) 100 Baso # (Auto) 0 PT 19.4 H INR 1.7 H APTT 44 H Sodium 123 L Potassium 4.4 Chloride 96 L Carbon Dioxide 15 L BUN 67 H Creatinine 1.31 H Estimated GFR 47 L BUN/Creatinine Ratio 51.1 H Glucose 135 H Lactate Calcium 10.0 Total Bilirubin 6.0 H AST 77 H ALT 42 H Alkaline Phosphatase 540 H Total Creatine Kinase CK-MB (CK-2) CK-MB (CK-2) Rel Index Troponin I NT-Pro-B Natriuret Pep Total Protein 6.4 Albumin 2.7 L Globulin 3.7 Albumin/Globulin Ratio 0.7 L Lipase 1322 H Procalcitonin 9.31 H Urine Color Urine Appearance Urine pH Ur Specific Globe Urine Protein Urine Glucose (UA) Urine Ketones Urine Occult Blood Urine Nitrate Urine Bilirubin Ur Bilirubin Confirm Urine Urobilinogen Ur Leukocyte Esterase Urine RBC Urine WBC Amorphous Sediment Urine Bacteria Hyaline Casts Ur Culture Indicated? SARS-CoV-2 (PCR) 05/06/22 05/06/22 05/06/22 09:05 09:05 10:08 WBC RBC Hgb Hct MCV MCH MCHC RDW Plt Count Neut % (Auto) Lymph % (Auto) Crawford % (Auto) Eos % (Auto) Baso % (Auto) Neut # (Auto) Lymph # (Auto) Crawford # (Auto) Eos # (Auto) Baso # (Auto) PT INR APTT Sodium Potassium Chloride Carbon Dioxide BUN Creatinine Estimated GFR BUN/Creatinine Ratio Glucose Lactate 3.3 H Calcium Total Bilirubin AST ALT Alkaline Phosphatase Total Creatine Kinase < 20 L CK-MB (CK-2) TNP CK-MB (CK-2) Rel Index TNP Troponin I < 0.012 NT-Pro-B Natriuret Pep 4680 H Total Protein Albumin Globulin Albumin/Globulin Ratio Lipase Procalcitonin Urine Color Urine Appearance Urine pH Ur Specific Globe Urine Protein Urine Glucose (UA) Urine Ketones Urine Occult Blood Urine Nitrate Urine Bilirubin Ur Bilirubin Confirm Urine Urobilinogen Ur Leukocyte Esterase Urine RBC Urine WBC Amorphous Sediment Urine Bacteria Hyaline Casts Ur Culture Indicated? SARS-CoV-2 (PCR) Negative 05/06/22 05/06/22 05/06/22 11:05 11:12 13:30 WBC 16.9 H RBC 3.64 L Hgb 10.6 L Hct 32.3 L MCV 88.8 MCH 29.2 MCHC 32.9 RDW 16.9 H Plt Count 286 Neut % (Auto) 77.4 H Lymph % (Auto) 20.2 L Crawford % (Auto) 1.4 L Eos % (Auto) 0.5 L Baso % (Auto) 0.5 Neut # (Auto) 49047 H Lymph # (Auto) 3400 Crawford # (Auto) 200 Eos # (Auto) 100 Baso # (Auto) 100 PT INR APTT Sodium Potassium Chloride Carbon Dioxide BUN Creatinine Estimated GFR BUN/Creatinine Ratio Glucose Lactate 2.8 H Calcium Total Bilirubin AST ALT Alkaline Phosphatase Total Creatine Kinase CK-MB (CK-2) CK-MB (CK-2) Rel Index Troponin I NT-Pro-B Natriuret Pep Total Protein Albumin Globulin Albumin/Globulin Ratio Lipase Procalcitonin Urine Color Yellow Urine Appearance Clear Urine pH 5.0 Ur Specific Globe 1.015 Urine Protein Trace H Urine Glucose (UA) Negative Urine Ketones Trace H Urine Occult Blood Negative Urine Nitrate Negative Urine Bilirubin 2+ H Ur Bilirubin Confirm Positive H Urine Urobilinogen 1.0 Ur Leukocyte Esterase Negative Urine RBC None seen Urine WBC 0-1/hpf Amorphous Sediment 2+ Urine Bacteria None seen Hyaline Casts 0-1/lpf Ur Culture Indicated? Cult not indicated SARS-CoV-2 (PCR) 05/06/22 13:30 WBC RBC Hgb Hct MCV MCH MCHC RDW Plt Count Neut % (Auto) Lymph % (Auto) Crawford % (Auto) Eos % (Auto) Baso % (Auto) Neut # (Auto) Lymph # (Auto) Crawford # (Auto) Eos # (Auto) Baso # (Auto) PT INR APTT Sodium 126 L Potassium 4.1 Chloride 101 Carbon Dioxide 13 L BUN 58 H Creatinine 1.16 H Estimated GFR 54 L BUN/Creatinine Ratio 50.0 H Glucose 154 H Lactate Calcium 8.7 Total Bilirubin 5.6 H AST 63 H ALT 38 H Alkaline Phosphatase 489 H Total Creatine Kinase CK-MB (CK-2) CK-MB (CK-2) Rel Index Troponin I < 0.012 NT-Pro-B Natriuret Pep 4330 H Total Protein 5.7 L Albumin 2.4 L Globulin 3.3 Albumin/Globulin Ratio 0.7 L Lipase Procalcitonin Urine Color Urine Appearance Urine pH Ur Specific Globe Urine Protein Urine Glucose (UA) Urine Ketones Urine Occult Blood Urine Nitrate Urine Bilirubin Ur Bilirubin Confirm Urine Urobilinogen Ur Leukocyte Esterase Urine RBC Urine WBC Amorphous Sediment Urine Bacteria Hyaline Casts Ur Culture Indicated? SARS-CoV-2 (PCR) [facility] Medical History Diabetes type 2, controlled Tinea cruris Surgical History History of incision and drainage (04/05/22) History of liver biopsy History of partial hysterectomy Hx of colonoscopy (04/07/22) Social History household members: spouse Tobacco & Substance Use Smoking Status: Current every day smoker alcohol intake: former Assessment & Plan Assessment and plan (1) Ascending cholangitis: Status: Acute (2) Adenocarcinoma of lung metastatic to liver: Status: Acute (3) Sepsis: Status: Acute Plan Ms. Mendoza presents with sepsis. Although I think the most likely source of this sepsis is ascending cholangitis due to compression of the biliary system because of the cancer progression, I would still do a full sepsis workup and check her port which is newly placed and urine and lungs and take blood cultures. I would start broad-spectrum antibiotics and actively resuscitate per sepsis protocol. I believe that Mrs. Mendoza needs to be admitted to an ICU bed and should be cared for at a facility that has ERCP or transhepatic drainage with IR capabilities. There is definitely no general surgery that would be safe to perform at [facility] at this time, I do not think that this is her gallbladder. I had the opportunity to discuss this with her daughter at the bedside. She understands. Additionally on the CT scan there is an increase in abdominal fluid I am wondering if that is being caused by portal hypertension and ascites due to compression within the liver from the cancer. I advised her daughter that any further discussions with physicians at [facility] should include a understanding of quality of life as well as the potential to increase the quantity of her life. I think her daughter does have some idea of the severity of her mother's condition. I personally reviewed and interpreted the CT scan and discussed this case with Dr. Dey. In summary, I recommend that Ms. Mendoza be emergently transferred to a center that can manage ascending cholangitis due to a malignant process. While she is in our ER all we can do is treat her for sepsis using a sepsis p rotocol and provide the best ICU care that is available at this hospital, but she needs to be transferred to hospital that can provide source control via ERCP or transhepatic drainage. Time Spent With Patient Critical Care time: I spent a total of [] minutes of critical care time on this patient's care today; this time is exclusive of procedural time.
== END 2022-05-06 19:05 | disposition admitted as inpatient to this hospital (09) ==
LOC: ED 12:34 → AC 13:19
PROVIDERS: Emergency Provider Emergency Medicine; Family Provider Family Medicine; PCP Family Medicine; Referring Provider Emergency Medicine
DX: A41.9 Sepsis, unspecified organism (principal); C78.7 Secondary malignant neoplasm of liver and intrahepatic bile duct; C34.90 Malignant neoplasm of unspecified part of unspecified bronchus or lung; R79.89 Other specified abnormal findings of blood chemistry; I95.9 Hypotension, unspecified; I48.20 Chronic atrial fibrillation, unspecified; Z79.01 Long term (current) use of anticoagulants; Z20.822 Contact with and (suspected) exposure to COVID-19
CPT/HCPCS: 36415; 71045; 71260; 74177; 80053; 81001; 82550; 83605; 83690; 83880; 84145; 84484; 85025; 85610; 85730; 87040; 87635; 93005; 96365; 96366; 96367; 96368; 96375; 96376; 99285; 99291; 99292; C9803; J1170; J2405; J2543